=== PATIENT | male | born 1940 | race Caucasian/White ===

== ENCOUNTER → 2017-02-12 | Day surgery (SDC) | payer MEDICARE ==
[~2017-02-12] MED LIST: ASPI81TA82 PO; ATOR80TA PO; CARV12.52 PO; ISOS30TA3 PO; LOSA50TA PO; MILK500C PO; MULT-65 PO; NITR0.4S SL; PROPOFOL 500 MG/50 ML BTL IV ONE; VITATAB25 PO
--- NOTE | 2017-02-12 13:24 | GIPROC ---
[facility] [address], [address] COLONOSCOPY PROCEDURE REPORT EXAM DATE: 02/12/2017 PATIENT NAME: Isaias Pierce MR #: [id number] BIRTHDATE: 1940 ENDOSCOPIST: Kristofer Bowden MD ORDER #: [id number] SLAG EXPANDER: Charlene Mayo RN STATUS: outpatient INDICATIONS: The patient is a 76 yr old male here for a colonoscopy due to high risk patient with personal history of colonic polyps PROCEDURE PERFORMED: Colonoscopy with polypectomy MEDICATIONS: None and Per Anesthesia. PREP QUALITY: good ESTIMATED BLOOD LOSS: None CONSENT: The patient understands the risks and benefits of the procedure and understands that these risks include, but are not limited to: sedation, allergic reaction, infection, perforation and/or bleeding. Alternative means of evaluation and treatment include, among others: physical exam, x-rays, and/or surgical intervention. The patient elects to proceed with this endoscopic procedure. medical equipment was checked for proper function. Hand hygiene and appropriate measures for infection prevention was taken. After the risks, benefits and alternatives of the procedure were thoroughly explained, Informed consent was verified, confirmed and timeout was successfully executed by the treatment team. A digital exam revealed no abnormalities of the rectum The EC-[id number] ([id number]) and [id number] ([id number]) endoscope was introduced through the anus and advanced to the cecum, which was identified by both the appendix and ileocecal valve. The instrument was then slowly withdrawn as the colon was fully examined. COLON FINDINGS: A medium sized smooth sessile polyp was found in the transverse colon. A polypectomy was performed with a cold snare. The resection was complete and the polyp tissue was completely retrieved. The colon mucosa was otherwise normal. Retroflexed views revealed no abnormalities The scope was then completely withdrawn from the patient and the procedure terminated. PROCEDURE WITHDRAWAL TIME:9.5minutes ADVERSE EVENTS: There were no complications. IMPRESSIONS: 1. A medium sized sessile polyp was found in the transverse colon; polypectomy was performed with a cold snare 2. The colon mucosa was otherwise normal 3. Retroflexed views revealed no abnormalities 4. Revealed no abnormalities of the rectum RECOMMENDATIONS: 1. Await biopsy results. Biopsy results will not be ready for 7-10 days. If you don't hear from us in two weeks, call our office for results. 2. High fiber diet 3. Yearly hemoccult 4. Follow-up: GI Clinic PRN RECALL: Return 5 years Colonoscopy Kristofer Bowden MD eSigned: Kristofer Bowden MD 02/12/2017 1:24 PM cc: Ger Akins M.D and Mejia Parnell [facility]
== END | disposition home or self-care (01) ==
LOC: ESDC 11:10
PROVIDERS: ATTEND Internal Medicine Gastroenterology
DX: Z12.11 Encounter for screening for malignant neoplasm of colon (principal); Z86.010 Personal history of colon polyps; D12.3 Benign neoplasm of transverse colon
CPT/HCPCS: 88305

== ENCOUNTER 2017-05-20 18:40 | Inpatient (IN) | payer MEDICARE ==
[2017-05-20] VITALS (9 sets, daily range): BP systolic 115–134; BP diastolic 59–76; PULSE 74–85; RESP 16–20; TEMP 97.9–99.1; O2SAT 97–98
[~2017-05-20] VITALS: Ht 170.2 cm; Wt 111.1 kg
[~2017-05-20 18:40] MED LIST changes: -PROPOFOL 500 MG/50 ML BTL IV ONE
[2017-05-20] MEDS ORDERED: ISOS20TA PO (19:17)
[2017-05-20] MEDS ORDERED: LOSA100T PO (19:17)
[2017-05-20] MEDS ORDERED: ATOR80TA45 PO (19:17)
[2017-05-20] MEDS ORDERED: NITR0.4S SL (19:17)
[2017-05-20] MEDS ORDERED: CARV25TA PO (19:17)
[2017-05-20] MEDS ORDERED: VITA2000 PO (19:17)
[2017-05-20] MEDS ORDERED: FOLI400T PO (19:17)
[2017-05-20] MEDS ORDERED: ASPI-516 CHEW (19:17)
--- NOTE | 2017-05-20 19:22 | PD ---
HPI Chief Complaint: Chest Pain Time Seen by Provider: 19:03 Travel History International Travel<30 days: No Contact w/Intl Traveler<30days: No Traveled to known affect area: No History of Present Illness HPI The patient is a 76-year-old male who presents emergency department for nausea, vomiting, chest pain. The patient states his symptoms started on Friday with nausea and a dry heaves. The patient then developed some substernal chest pain that was intermittent, worse with lying supine, and he chewed it to his normal angina. The patient then developed diarrhea today, approximately 4-5 episodes which she describes as loose and watery. However, he continues have intermittent chest pain for which she takes nitroglycerin, thus relieving his pain. The patient states he had an abnormal stress test in July 2016 and underwent cardiac catheterization was told he had a blocked artery, but it was recommended that he have medical management. The patient does note a history of intermittent chest pain is substernal, worse with lying supine, that is relieved with nitroglycerin. He denies any exertional symptoms. He does complain of intermittent shortness of breath. He is asymptomatic upon arrival. The patient's cigar head piercer is Dr. Dante De Leon. Ger pain, fever, chills, or sweats. PFSH Past Medical History Cancer: Yes (RIGHT KIDNEY-REMOVED) Chest Pain: No Diabetes: No Gastrointestinal Disorders: No Glaucoma: No Hepatitis: No Hiatal Hernia: No Hypertension: Yes Integumentary: No Thyroid Disease: No ?: Not Past Surgical History Thoracic Surgery: Yes (CABG X 4) Social History Alcohol Use: Yes (WEEKLY) Tobacco Use: No Allergies-Medications (Allergen,Severity, Reaction): Coded Allergies: No Known Allergies (Verified Allergy, Severe, 05/20/17) Reported Meds & Prescriptions Reported Meds & Active Scripts Active Reported Nitrostat SL (Nitroglycerin) 0.4 Mg Subl 0.4 Mg SL DIRECTED PRN 1 tablet under the tongue as needed for chest pain. Repeat every 5 minutes for a total of 3 DOSES or call 911 if NO relief. Folic Acid 0.4 Mg Tab 400 Mcg PO DAILY Vitamin D3 (Cholecalciferol) 2,000 Unit Cap 2,000 Units PO DAILY Aspirin 81 Mg Chew 81 Mg CHEW DAILY Isosorbide Mononitrate 20 Mg Tab 30 Mg PO DAILY Take 2 doses 7 hours apart. Carvedilol 25 Mg Tab 25 Mg PO BID Losartan (Losartan Potassium) 100 Mg Tab 100 Mg PO DAILY Atorvastatin (Atorvastatin Calcium) 80 Mg Tab 80 Mg PO HS Review of Systems Except as stated in HPI: all other systems reviewed are Neg General / Constitutional: No: Fever HENT: No: Lightheadedness Cardiovascular: Positive: Chest Pain or Discomfort, No: Dyspnea on exertion Respiratory: Positive: Shortness of Breath Gastrointestinal: Positive: Nausea, Vomiting, Diarrhea, No: Abdominal Pain Musculoskeletal: No: Weakness Neurologic: No: Weakness Physical Exam Narrative GENERAL: Awake, alert, pleasant 76-year-old male who appears his stated age and is in no acute respiratory distress. SKIN: Focused skin assessment warm/dry. HEAD: Atraumatic. Normocephalic. EYES: Pupils equal and round. No scleral icterus. No injection or drainage. ENT: No nasal bleeding or discharge. Mucous membranes pink and moist. NECK: Trachea midline. No JVD. CARDIOVASCULAR: Regular rate and rhythm. No murmur appreciated. RESPIRATORY: No accessory muscle use. Clear to auscultation. Breath sounds equal bilaterally. GASTROINTESTINAL: Abdomen soft, non-tender, nondistended. Obese, well-healed scar, no rebound tenderness. No epigastric tenderness. MUSCULOSKELETAL: No obvious deformities. No clubbing. No cyanosis. No edema. NEUROLOGICAL: Awake and alert. No obvious cranial nerve deficits. Motor grossly within normal limits. Normal speech. PSYCHIATRIC: Appropriate mood and affect; insight and judgment normal. Data Data Last Documented VS Vital Signs Date Time Temp Pulse Resp B/P (MAP) Pulse Ox O2 Delivery O2 Flow Rate FiO2 05/20/17 19:38 118/72 (87) 122/68 (86) 05/20/17 19:22 97 Room Air 05/20/17 19:17 78 18 05/20/17 19:17 97.9 Orders Orders Electrocardiogram (05/20/17 19:18) Ckmb (Isoenzyme) Profile (05/20/17 19:18) Complete Blood Count With Diff (05/20/17 19:18) Comprehensive Metabolic Panel (05/20/17 19:18) Magnesium (Mg) (05/20/17 19:18) Prothrombin Time / Inr (Pt) (05/20/17 19:18) Act Partial Throm Time (Ptt) (05/20/17 19:18) Troponin I (05/20/17 19:18) Lipase (05/20/17 19:18) Chest, Single Ap (05/20/17 19:18) Ecg Monitoring (05/20/17 19:18) Bilateral Bp Monitoring (05/20/17 19:18) Iv Access Insert/Monitor (05/20/17 19:18) Oximetry (05/20/17 19:18) Oxygen Administration (05/20/17 19:18) Sodium Chloride 0.9% Flush (Ns Flush) (05/20/17 19:30) Sodium Chlorid 0.9% 500 Ml Inj (Ns 500 M (05/20/17 19:30) Labs Laboratory Tests Test 05/20/17 19:30 White Blood Count 9.1 TH/MM3 Red Blood Count 4.09 MIL/MM3 Hemoglobin 12.7 GM/DL Hematocrit 37.3 % Mean Corpuscular Volume 91.0 FL Mean Corpuscular Hemoglobin 31.0 PG Mean Corpuscular Hemoglobin Concent 34.0 % Red Cell Distribution Width 13.0 % Platelet Count 119 TH/MM3 Mean Platelet Volume 9.4 FL Neutrophils (%) (Auto) 79.3 % Lymphocytes (%) (Auto) 9.3 % Monocytes (%) (Auto) 10.7 % Eosinophils (%) (Auto) 0.4 % Basophils (%) (Auto) 0.3 % Neutrophils # (Auto) 7.3 TH/MM3 Lymphocytes # (Auto) 0.8 TH/MM3 Monocytes # (Auto) 1.0 TH/MM3 Eosinophils # (Auto) 0.0 TH/MM3 Basophils # (Auto) 0.0 TH/MM3 CBC Comment DIFF FINAL Differential Comment Prothrombin Time 11.0 SEC Prothromb Time International Ratio 1.1 RATIO Activated Partial Thromboplast Time 30.2 SEC Blood Urea Nitrogen 95 MG/DL Creatinine 13.00 MG/DL Random Glucose 98 MG/DL Total Protein 6.9 GM/DL Albumin 3.1 GM/DL Calcium Level 8.9 MG/DL Magnesium Level 2.2 MG/DL Alkaline Phosphatase 45 U/L Aspartate Amino Transf (AST/SGOT) 19 U/L Alanine Aminotransferase (ALT/SGPT) 23 U/L Total Bilirubin 0.7 MG/DL Sodium Level 133 MEQ/L Potassium Level 4.5 MEQ/L Chloride Level 99 MEQ/L Carbon Dioxide Level 17.5 MEQ/L Anion Gap 17 MEQ/L Estimat Glomerular Filtration Rate 4 ML/MIN Total Creatine Kinase 91 U/L Troponin I 0.33 NG/ML Lipase 92 U/L [facility] Medical Decision Making Medical Screen Exam Complete: Yes Emergency Medical Condition: Yes Medical Record Reviewed: Yes Interpretation(s) EKG reveals sinus rhythm with sinus arrhythmia. Q wave noted in lead 3. Last Impressions Chest X-Ray 05/20/171917 Signed Impressions: Service Date/Time: Saturday, May 20, 2017 19:37 - CONCLUSION: Cardiomegaly. Clear lungs. Stefan Davis Jr., MD Laboratory Tests Test 05/20/17 19:30 White Blood Count 9.1 TH/MM3 Red Blood Count 4.09 MIL/MM3 Hemoglobin 12.7 GM/DL Hematocrit 37.3 % Mean Corpuscular Volume 91.0 FL Mean Corpuscular Hemoglobin 31.0 PG Mean Corpuscular Hemoglobin Concent 34.0 % Red Cell Distribution Width 13.0 % Platelet Count 119 TH/MM3 Mean Platelet Volume 9.4 FL Neutrophils (%) (Auto) 79.3 % Lymphocytes (%) (Auto) 9.3 % Monocytes (%) (Auto) 10.7 % Eosinophils (%) (Auto) 0.4 % Basophils (%) (Auto) 0.3 % Neutrophils # (Auto) 7.3 TH/MM3 Lymphocytes # (Auto) 0.8 TH/MM3 Monocytes # (Auto) 1.0 TH/MM3 Eosinophils # (Auto) 0.0 TH/MM3 Basophils # (Auto) 0.0 TH/MM3 CBC Comment DIFF FINAL Differential Comment Prothrombin Time 11.0 SEC Prothromb Time International Ratio 1.1 RATIO Activated Partial Thromboplast Time 30.2 SEC Blood Urea Nitrogen 95 MG/DL Creatinine 13.00 MG/DL Random Glucose 98 MG/DL Total Protein 6.9 GM/DL Albumin 3.1 GM/DL Calcium Level 8.9 MG/DL Magnesium Level 2.2 MG/DL Alkaline Phosphatase 45 U/L Aspartate Amino Transf (AST/SGOT) 19 U/L Alanine Aminotransferase (ALT/SGPT) 23 U/L Total Bilirubin 0.7 MG/DL Sodium Level 133 MEQ/L Potassium Level 4.5 MEQ/L Chloride Level 99 MEQ/L Carbon Dioxide Level 17.5 MEQ/L Anion Gap 17 MEQ/L Estimat Glomerular Filtration Rate 4 ML/MIN Total Creatine Kinase 91 U/L Troponin I 0.33 NG/ML Lipase 92 U/L Differential Diagnosis Differential diagnosis includes GERD, esophageal spasm, gastritis, angina, ACS, pleural effusion, congestive heart failure, pancreatitis. Narrative Course IV was established, labs are drawn and sent, and the patient was placed on cardiac telemetry monitoring and continuous pulse oximetry monitoring. EKG was ordered and interpreted. The patient already took aspirin prior to arrival. The patient's chest pain-free upon arrival. Chest x-ray was obtained. I reviewed the patient's EMR he underwent cardiac catheterization by Dr. Dante De Leon on January 01, 2016. The patient was noted to have 90% stenosis of the left circumflex artery. This was attempted to be the wound but was unsuccessful. The patient's CABG vessels appeared to be patent. The patient's creatinine was 13, troponin was 0.33. The patient has had nausea with dry heaves and diarrhea, poor oral intake. BUN was 95, could be acute kidney injury from dehydration. However, patient has a remote history of kidney cancer and had the right kidney removed, only has 1 current kidney. I reviewed the EMR, his baseline kidney function is normally within normal limits. Therefore, patient will be admitted, will need IV hydration and evaluation by nephrology and an ultrasound of the kidneys. A call was placed to the on-call [facility] physician at 8:17 PM. I discussed patient with Dr. Akins who agrees with admission. Physician Communication Physician Communication A call was placed to the on-call [facility] physician at 8:17 PM for admission. I discussed the patient with Dr. Akins at 8:20 PM who agrees with admission. Diagnosis Primary Impression: Acute renal failure Qualified Codes: N17.9 - Acute kidney failure, unspecified Additional Impressions: Dehydration Elevated troponin Admitting Information Admitting Physician Requests: Admit Condition: Stable Kvng Foote MD May 20, 2017 19:22
[2017-05-20] MEDS ORDERED: SODIUM CHLORID 0.9% 500 ML INJ 500 ML IV ONE (19:30)
[2017-05-20 19:40] LABS: AUTOMATED NEUTROPHIL # 7.3 TH/MM3 (1.8-7.7); BASOPHIL % 0.3 % (0.0-2.0); EOSINOPHIL % 0.4 % (0.0-4.0); HEMATOCRIT 37.3 % (39.0-51.0); HEMOGLOBIN 12.7 GM/DL (13.0-17.0); LYMPH % 9.3 % (9.0-44.0); LYMPHOCYTE # 0.8 TH/MM3 (1.0-4.8); MEAN PLATELET VOLUME 9.4 FL (7.0-11.0); MONO % 10.7 % (0.0-8.0); NEUT % 79.3 % (16.0-70.0); PLATELET COUNT 119 TH/MM3 (150-450); RED BLOOD COUNT 4.09 MIL/MM3 (4.50-5.90); WHITE BLOOD COUNT 9.1 TH/MM3 (4.0-11.0)
[2017-05-20 19:48] LABS: CHLORIDE 99 MEQ/L (98-107); SODIUM (NA) 133 MEQ/L (136-145)
[2017-05-20 19:54] LABS: CALCIUM 8.9 MG/DL (8.5-10.1)
[2017-05-20 19:55] LABS: ALBUMIN 3.1 GM/DL (3.4-5.0); BICARBONATE 17.5 MEQ/L (21.0-32.0); BLOOD UREA NITROGEN 95 MG/DL (7-18); GLUCOSE,RANDOM 98 MG/DL (74-106); INTERNATIONAL NORMALIZED RATIO 1.1 RATIO; LIPASE 92 U/L (73-393); MAGNESIUM 2.2 MG/DL (1.5-2.5)
--- NOTE | 2017-05-20 19:56 | RADRPT ---
EXAM DATE/TIME: 05/20/2017 19:37 [facility] COMPARISON: No previous studies available for comparison. INDICATIONS : Chest pain for 3 days. MEDICAL HISTORY : Cardiovascular disease. Kidney cancer. Angina. Hypertension. SURGICAL HISTORY : CABG. Right kidney removed. Cardiac catherization. ENCOUNTER: Initial ACUITY: 3 days PAIN SCORE: 5/10 LOCATION: Bilateral chest FINDINGS: A single view of the chest demonstrates the lungs to be symmetrically aerated without evidence of mas s, infiltrate or effusion. Cardiomegaly without pulmonary vascular engorgement. Median sternotomy wir es and coronary markers. Osseous structures are intact. CONCLUSION: Cardiomegaly. Clear lungs. Stefan Davis Jr., MD on May 20, 2017 at 19:53 Board Certified Radiologist. This report was verified electronically.
[2017-05-20 19:57] LABS: ALT (GPT) 23 U/L (12-78); AST (GOT) 19 U/L (15-37); GLOMERULAR FILTRATION RATE 4 ML/MIN (>89)
[2017-05-20 19:59] LABS: TOTAL BILIRUBIN ADULT 0.7 MG/DL (0.2-1.0); TOTAL PROTEIN 6.9 GM/DL (6.4-8.2)
[2017-05-20 20:00] LABS: ALKALINE PHOSPHATASE 45 U/L (45-117)
[2017-05-20 20:03] LABS: TROPONIN I 0.33 NG/ML (0.02-0.05)
[2017-05-20] MEDS ORDERED: SODIUM CHLOR 0.9% 1000 ML INJ 1,000 ML IV ONE (20:45)
[2017-05-20] MEDS: HEPARIN SODIUM - SQ 10,000 UNITS/ML VIAL SQ SCH (20:51)
[2017-05-20] MEDS ORDERED: NITROGLYCERIN 0.4 MG SL 25 TABS/BTL SL PRN (21:15)
[2017-05-20] MEDS: SODIUM CHLOR 0.9% 1000 ML INJ 1,000 ML IV SCH (21:43)
[2017-05-20] MEDS: SODIUM CHLORIDE 0.9% FLUSH 10 ML FLUSH IVF PRN (23:44)
[2017-05-21 01:42] LABS: BICARBONATE 16.8 MEQ/L (21.0-32.0); CALCIUM 7.9 MG/DL (8.5-10.1)
[2017-05-21 01:53] LABS: TROPONIN I 0.52 NG/ML (0.02-0.05)
[2017-05-21 02:30] LABS: CALCIUM-PROTEIN CORRECTED 8.6 MG/DL (8.5-10.1); TOTAL PROTEIN 5.9 GM/DL (6.4-8.2)
[2017-05-21 04:00] VITALS: BP 124/79; PULSE 81; RESP 20; TEMP 97.9; O2SAT 97
[2017-05-21] MEDS: SODIUM CHLOR 0.9% 1000 ML INJ 1,000 ML IV SCH ×2 (06:33→17:02)
[2017-05-21] MEDS ORDERED: ISOSORBIDE MONONITRATE 30 MG TAB PO ONE (06:45)
[2017-05-21] MEDS ORDERED: ISOSORBIDE MONONITRATE 60 MG TAB PO SCH (07:00)
[2017-05-21] MEDS ORDERED: ISOSORBIDE MONONITRATE 20 MG TAB PO SCH (07:00)
--- NOTE | 2017-05-21 07:11 | MH ---
cc: SERVANDO BOOKER M.D. DATE OF ADMISSION 05/20/2017 ADMISSION DIAGNOSIS 1. Acute renal failure 2. History of stage III chronic kidney disease. 3. Vomiting and diarrhea 4. Intermittent chest pain that is typical angina that is relieved by nitro. 5. History of coronary artery disease with prior four-vessel coronary artery bypass in 2006 and last cath showed blockage that was not able to be stented in 2015. He has been on medical management for angina. 6. Hyperlipidemia 7. Cardiomyopathy with mild decrease in ejection fraction. 8. Mild aortic valve stenosis. 9. Mitral regurgitation. 10. History of diverticulosis. 11. History of renal cell carcinoma [id number] with right nephrectomy. 12. History of aortic ectasia an atherosclerosis of the aorta. 13. BPH. 14. He has no diabetes. No thyroid disease, stroke or seizures. 15. He has had measles, mumps, varicella. PAST SURGICAL HISTORY He has had an: 1. Appendectomy 2. Tonsillectomy and adenoidectomy. 3. He has had four-vessel coronary bypass in 2006. 4. Cardiac cath on 01/01/2016 that showed saphenous vein graft to the first diagonal of the LAD was widely patent. The internal mammary to the LAD was normal. His RCA was totally occluded at takeoff from the aorta. The LAD totally occluded at the takeoff of the left main and a 90% distal stenosis of the distal terminus of the left main. He had a high-grade 90% stenosis of the circumflex. The obtuse Marginal branch of the circumflex was totally occluded. Apparently there were able to successfully perform any intervention on any of the vessels that were attempted. 5. He has had history of a colonoscopies with polyps with a polyp removed on 08/31/2004. 6. He had a colonoscopy on 12/25/2010 that showed a hyperplastic polyp and diverticulosis. 7. He had a tubular adenoma noted on colonoscopy 02/12/2017. 8. He had an EGD in 2004 that showed esophagitis and gastritis. 9. He has had a right nephrectomy in 1997 for renal cell carcinoma. ALLERGIES None CURRENT MEDICATIONS He uses: 5. Nitroglycerin sublingually 0.4 mg p.r.n. 6. Carvedilol 25 mg twice a day 7. Losartan 100 mg a day 8. Atorvastatin 80 mg a day 9. Isosorbide mononitrate 30 mg a day 10. Aspirin 81 mg a day 11. Folic acid 0.4 mg a day FAMILY HISTORY His mother and father of heart disease. Father was 92, mother 75. SOCIAL HISTORY He is and lives alone. 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 He has an occasional drink of liquor, not daily. He quit smoking years ago, only smoked 1 to 1-/1/2 pack a day for 10-15 years. REVIEW OF SYSTEMS GENERAL: No sore throat or runny nose. No vision complaints. No fever or chills. CARDIOVASCULAR: He has had some intermittent angina for a long time. He states it is usually promptly relieved by nitro. In the last week, he has used nitro a few times, but it does promptly relieved any chest pain he has. He has had prolonged chest pain. No orthopnea or PND. No shortness of breath. PULMONARY: No cough, hemoptysis, or wheezing. GI: Mentions he has had some dry heaves about four days ago that resolved. He has had just a little bit of GI distress, slight cramping and bloating. He developed some diarrhea yesterday and had about three to four episodes since then. He has had no melena or rectal bleeding or hematemesis. : Without complaints. No hematuria or dysuria. EXTREMITIES: Without swelling. NEUROLOGIC: No focal signs. No confusion. EXAMINATION An obese white male in no acute stress. VITAL SIGNS: His pulses has been in the 70s and 80s, BP has been good at 117/67 to 124/79, O2 sats 97% on room air, temperature 97.9. HEENT: Pupils equal. Sclerae nonicteric. Nose negative. Mouth without inflammation lesion. NECK: Without bruit. No JVD. HEART: Regular rate and rhythm with a faint systolic murmur. LUNGS: Clear. ABDOMEN: Soft, nontender, no masses. EXTREMITIES: No edema. Pulses are palpated in the feet maybe just slightly diminished. No calf tenderness. SKIN: Negative. NEUROLOGIC: Oriented x3. Cranial nerves, motor sensory intact. LABORATORY White count 9.1, hemoglobin 12.7, platelets were a little low at 119,000. His sodium was 133, his CO2 was 17.5 last evening and 16.8 earlier this morning. His creatinine has ranged from 13-12, glucose 98 and 107, calcium was low at 7.9, protein corrected calcium was good. AST, ALT, bilirubin all normal. His troponins have been 0.33 and 0.52, but I suspect this is related to his renal failure. He has not had any prolonged chest discomfort and his lipase was 92. Is EKG showed no acute ST-T wave changes. Chest x-ray showed clear lungs, but cardiomegaly. ASSESSMENT 1. Mild thrombocytopenia 2. History of colon polyps. PLAN He has been admitted and put on some IV fluids. We have consulted Nephrology. We will have cardiology see him, but I have upped his dose of isosorbide to 60 mg a day. He is not having any prolonged chest discomfort and it is relieved by nitro. We will give him that if needed. I have held his Losartan for now, but maintain him on his Carvedilol in view of his coronary artery disease. He is on the baby aspirin a day. I put him on heparin 5000 units subcu q. 12 for DVT prophylaxis. We will put him on a renal diet. I will order an ultrasound of the abdomen as well to evaluate his kidneys. As mentioned, he only has one kidney. He has had prior right nephrectomy. MD ERIK Storey/CHLOÉ /6:35 AM /6:50 AM
--- NOTE | 2017-05-21 07:49 | PD.CONS ---
HPI Consult Requested By Primary Care Physician No Primary Care Physician History of Present Illness 76-year-old male with past medical history of CAD s/p CABG 2006, 90% left main lesion that was not amenable to PCI in 2016, cardiomyopathy, , MR, solitary kidney s/p renal CA, HTN, HLD. The patient states that since last Friday he's had "stomach flu". He had dry heaving last Friday. He started having diarrhea on Friday. He was feeling quite weak and poorly yesterday so he came to the ED where he was found to have a creatinine of 13. The patient states that since all this started on Friday he has been having some chest pain that he has been taking nitroglycerin for. He states that the pain is relieved whenever he takes the nitroglycerin. The pain has lasted up to 30 minutes before he took a nitroglycerin. He denies having any chest pain prior to Friday. He denies any shortness of breath or palpitations. Currently he is feeling much better after IV hydration and no chest pain currently. Review of Systems Negative except as stated in history of present illness Past Family Social History Allergies: Coded Allergies: No Known Allergies (Verified Allergy, Severe, 05/20/17) Past Medical History Coronary artery disease 3 myopathy Mild aortic valve stenosis next and mitral regurgitation History of renal cell carcinoma in 1997 with right nephrectomy Past Surgical History 1. Appendectomy 2. Tonsillectomy and adenoidectomy. 3. He has had four-vessel coronary bypass in 2006. 4. Cardiac cath on 01/01/2016 that showed saphenous vein graft to the first diagonal of the LAD was widely patent. The internal mammary to the LAD was normal. His RCA was totally occluded at takeoff from the aorta. The LAD totally occluded at the takeoff of the left main and a 90% distal stenosis of the distal terminus of the left main. He had a high-grade 90% stenosis of the circumflex. The obtuse Marginal branch of the circumflex was totally occluded. Apparently there were able to successfully perform any intervention on any of the vessels that were attempted. 5. He has had history of a colonoscopies with polyps with a polyp removed on 08/31/2004. 6. He had a colonoscopy on 12/25/2010 that showed a hyperplastic polyp and diverticulosis. 7. He had a tubular adenoma noted on colonoscopy 02/12/2017. 8. He had an EGD in 2004 that showed esophagitis and gastritis. 9. He has had a right nephrectomy in 1997 for renal cell carcinoma. Reported Medications Reported Meds & Active Scripts Active Reported Nitrostat SL (Nitroglycerin) 0.4 Mg Subl 0.4 Mg SL DIRECTED PRN 1 tablet under the tongue as needed for chest pain. Repeat every 5 minutes for a total of 3 DOSES or call 911 if NO relief. Folic Acid 0.4 Mg Tab 400 Mcg PO DAILY Vitamin D3 (Cholecalciferol) 2,000 Unit Cap 2,000 Units PO DAILY Aspirin 81 Mg Chew 81 Mg CHEW DAILY Isosorbide Mononitrate 20 Mg Tab 30 Mg PO DAILY Take 2 doses 7 hours apart. Carvedilol 25 Mg Tab 25 Mg PO BID Losartan (Losartan Potassium) 100 Mg Tab 100 Mg PO DAILY Atorvastatin (Atorvastatin Calcium) 80 Mg Tab 80 Mg PO HS Active Ordered Medications Current Medications Medications (Trade) Dose Ordered Sig/Rebekah Route Start Time Stop Time Status Last Admin (NS Flush) 2 ml UNSCH PRN IVF 05/20/17 19:30 05/20/17 23:44 Sodium Chloride 1,000 ml @ 100 mls/hr Q10H IV 05/20/17 20:45 05/21/17 06:33 (Heparin Inj) 5,000 units Q12HR SQ 05/20/17 21:00 05/20/17 20:51 (Aspirin Chew) 81 mg DAILY CHEW 05/21/17 09:00 (Lipitor) 80 mg HS PO 05/21/17 21:00 (Coreg) 25 mg BID PO 05/21/17 09:00 (Vitamin D3) 2,000 units DAILY PO 05/21/17 09:00 (Folate) 1 mg DAILY PO 05/21/17 09:00 (Nitrostat Sl) 0.4 mg UNSCH X1 PRN SL 05/20/17 21:15 05/21/17 21:14 (Imdur) 60 mg DAILY@07 PO 05/22/17 07:00 Family History His mother and father of heart disease. Father was 92, mother 75. Social History He is and lives alone. 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 He has an occasional drink of liquor, not daily. He quit smoking years ago, only smoked 1 to 1-/1/2 pack a day for 10-15 years. Physical Exam Vital Signs Vital Signs Date Time Temp Pulse Resp B/P (MAP) Pulse Ox O2 Delivery O2 Flow Rate FiO2 05/21/17 04:00 97.9 81 20 124/79 (94) 97 05/20/17 23:20 78 05/20/17 23:00 99.1 81 20 134/76 (95) 98 05/20/17 22:56 74 18 97 05/20/17 22:35 78 18 121/68 (85) 97 Room Air 05/20/17 21:53 74 18 117/67 (84) 97 Room Air 05/20/17 20:20 74 18 115/62 (79) 97 Room Air 05/20/17 19:38 118/72 (87) 122/68 (86) 05/20/17 19:22 97 Room Air 05/20/17 19:22 97 Room Air 05/20/17 19:17 78 18 97 Room Air 05/20/17 19:17 97.9 78 18 118/72 (87) 97 Room Air 05/20/17 18:45 98.2 85 16 124/59 (80) 97 Physical Exam GENERAL: Well-developed well-nourished. In no acute distress. NECK: No carotid bruits. No JVD. CARDIOVASCULAR: Regular rate and rhythm. No murmur appreciated. RESPIRATORY: No accessory muscle use. Clear to auscultation. Breath sounds equal bilaterally. MUSCULOSKELETAL: No clubbing or cyanosis. No edema. NEUROLOGICAL: Awake and alert. Normal speech. Laboratory Laboratory Tests Test 05/20/17 19:30 05/21/17 00:40 White Blood Count 9.1 Red Blood Count 4.09 Hemoglobin 12.7 Hematocrit 37.3 Mean Corpuscular Volume 91.0 Mean Corpuscular Hemoglobin 31.0 Mean Corpuscular Hemoglobin Concent 34.0 Red Cell Distribution Width 13.0 Platelet Count 119 Mean Platelet Volume 9.4 Neutrophils (%) (Auto) 79.3 Lymphocytes (%) (Auto) 9.3 Monocytes (%) (Auto) 10.7 Eosinophils (%) (Auto) 0.4 Basophils (%) (Auto) 0.3 Neutrophils # (Auto) 7.3 Lymphocytes # (Auto) 0.8 Monocytes # (Auto) 1.0 Eosinophils # (Auto) 0.0 Basophils # (Auto) 0.0 CBC Comment DIFF FINAL Differential Comment Prothrombin Time 11.0 Prothromb Time International Ratio 1.1 Activated Partial Thromboplast Time 30.2 Blood Urea Nitrogen 95 91 Creatinine 13.00 12.00 Random Glucose 98 107 Total Protein 6.9 5.9 Albumin 3.1 Calcium Level 8.9 7.9 Magnesium Level 2.2 Alkaline Phosphatase 45 Aspartate Amino Transf (AST/SGOT) 19 Alanine Aminotransferase (ALT/SGPT) 23 Total Bilirubin 0.7 Sodium Level 133 133 Potassium Level 4.5 4.5 Chloride Level 99 102 Carbon Dioxide Level 17.5 16.8 Anion Gap 17 14 Estimat Glomerular Filtration Rate 4 4 Total Creatine Kinase 91 Troponin I 0.33 0.52 Lipase 92 Protein Corrected Calcium 8.6 Result Diagram: 05/20/17192905/21/17 0040 Imaging Last Impressions Chest X-Ray 05/20/171917 Signed Impressions: Service Date/Time: Saturday, May 20, 2017 19:37 - CONCLUSION: Cardiomegaly. Clear lungs. Stefan Davis Jr., MD Assessment and Plan Assessment and Plan 76-year-old male with past medical history of CAD s/p CABG 2006, 90% left main lesion that was not amenable to PCI in 2016, cardiomyopathy, , MR, solitary kidney s/p renal CA, HTN, HLD. He presented with acute renal failure after several days of dry heaving and diarrhea. He's been having intermittent chest pain for the past few days as well. Elevated troponins: NSTEMI? Unclear if troponins are due to acute renal failure or ACS. Imdur was increased. CAD: Continue aspirin, beta major, statin. HILARIA: With history of single kidney. Creatinine 13. Receiving IVF. Nephrology consulted. Nagi Roy May 21, 2017 07:49
[2017-05-21 08:00] VITALS: BP 127/72; PULSE 75; RESP 18; TEMP 96.9; O2SAT 96
[2017-05-21] MEDS: FOLIC ACID 1 MG TAB PO SCH (08:35)
[2017-05-21] MEDS: CHOLECALCIFEROL (VIT D3) 1000 UNIT TAB PO SCH (08:36)
[2017-05-21] MEDS: CARVEDILOL 12.5 MG TAB PO SCH ×2 (08:36→21:45)
[2017-05-21] MEDS: ASPIRIN 81 MG CHEW TAB CHEW SCH (08:36)
[2017-05-21] MEDS: HEPARIN SODIUM - SQ 10,000 UNITS/ML VIAL SQ SCH ×2 (08:39→21:45)
--- NOTE | 2017-05-21 09:34 | EKG ---
Date Performed: 05/21/2017 Time Performed: 06:16:03 PTAGE: 76 years EKG: Sinus rhythm POSSIBLE LEFT ATRIAL ENLARGEMENT POSSIBLE ANTERIOR MYOCARDIAL INFARCTION BORDERLINE ECG PREVIOUS TRACING : 05/20/2017 18.50 DOCTOR: Gee Crawford Interpretating Date/Time 05/21/2017 09:32:57
--- NOTE | 2017-05-21 09:50 | EKG ---
Date Performed: 05/20/2017 Time Performed: 18:50:32 PTAGE: 76 years EKG: Sinus rhythm WITH SINUS ARRHYTHMIA LEFT ATRIAL ENLARGEMENT POSSIBLE LATERAL MYOCARDIAL INFARCTION INFERIOR MYOCAR DIAL INFARCTION ABNORMAL ECG PREVIOUS TRACING : 06/28/2006 03.58 DOCTOR: Gee Crawford Interpretating Date/Time 05/21/2017 09:49:00
--- NOTE | 2017-05-21 10:06 | RADRPT ---
EXAM DATE/TIME: 05/21/2017 08:09 [facility] COMPARISON: No previous studies available for comparison. INDICATIONS : Abdominal pain. Renal failure. MEDICAL HISTORY : Myocardial infarction. Renal cell carcinoma. Hypercholesterolemia. Chest pain. Irregular heartbeat. H TN. Angina. Arthritis. Renal failure. SURGICAL HISTORY : Appendectomy. Nephrectomy, right. CABG x4. Cardiac cath. ENCOUNTER: Initial ACUITY: 2 days PAIN SCORE: 4/10 LOCATION: Abdomen. MEASUREMENTS: LIVER: 17.6 cm length COMMON DUCT: 5 mm RIGHT KIDNEY: Nephrectomy LEFT KIDNEY: 15.9 x 9.2 x 9.6 cm SPLEEN: 12.6 cm length AORTA: Nonvisualized FINDINGS: LIVER: Normal echotexture without focal lesion or ductal dilatation. Main portal vein is patent with hepatop edal blood flow. COMMON DUCT: No intraluminal mass or stone visualized. GALLBLADDER: There are multiple smooth mobile stones within the gallbladder. No pericholecystic fluid or significa nt wall thickening is present. Sonographic Ng sign is negative. PANCREAS: Not adequately visualized secondary to overlying bowel gas. RIGHT KIDNEY: Surgically absent. LEFT KIDNEY: No hydronephrosis, stone or mass. Mild dilatation of the left renal pelvis. SPLEEN: No focal lesion. AORTA: Not well visualized but the visualized portions demonstrate no abnormality. IVC: Proximal aspect is not visualized. CONCLUSION: 1. There is a solitary left kidney with mild distention of the left renal collecting system without d efinite hydronephrosis. Etiology for distention is uncertain. 2. Cholelithiasis. Diaz Yadav MD on May 21, 2017 at 10:00 Board Certified Radiologist. This report was verified electronically.
--- NOTE | 2017-05-21 10:17 | PD.CONS ---
HPI Service Nephrology Consult Requested By Dr. Akins Reason for Consult Acute renal failure Primary Care Physician No Primary Care Physician History of Present Illness Patient is a 76-year-old white male with history of coronary artery disease status post CABG, he has been admitted with feeling weak tired shortness of breath he has dry heaves, nausea, vomiting and chest pain noted to have creatinine of 13 with solitary left kidney, he states the renal cell cancer, the right kidney was taken out due to renal cell cancer 1997, he was given IV hydration overnight his creatinine is still 12. Ultrasound of the kidney showed solitary left kidney and mild distention of renal pelvis without any hydronephrosis. He did have cholelithiasis. Review of Systems Constitutional: COMPLAINS OF: Fatigue Respiratory: COMPLAINS OF: Shortness of breath Cardiovascular: COMPLAINS OF: Orthopnea Gastrointestinal: COMPLAINS OF: Nausea, Anorexia Musculoskeletal: COMPLAINS OF: Joint pain Psychiatric: COMPLAINS OF: Anxiety Past Family Social History Allergies: Coded Allergies: No Known Allergies (Verified Allergy, Severe, 05/20/17) Past Medical History Coronary artery disease 3 myopathy Mild aortic valve stenosis next and mitral regurgitation History of renal cell carcinoma in 1997 with right nephrectomy Past Surgical History 1. Appendectomy 2. Tonsillectomy and adenoidectomy. 3. He has had four-vessel coronary bypass in 2006. 4. Cardiac cath on 01/01/2016 that showed saphenous vein graft to the first diagonal of the LAD was widely patent. The internal mammary to the LAD was normal. His RCA was totally occluded at takeoff from the aorta. The LAD totally occluded at the takeoff of the left main and a 90% distal stenosis of the distal terminus of the left main. He had a high-grade 90% stenosis of the circumflex. The obtuse Marginal branch of the circumflex was totally occluded. Apparently there were able to successfully perform any intervention on any of the vessels that were attempted. 5. He has had history of a colonoscopies with polyps with a polyp removed on 08/31/2004. 6. He had a colonoscopy on 12/25/2010 that showed a hyperplastic polyp and diverticulosis. 7. He had a tubular adenoma noted on colonoscopy 02/12/2017. 8. He had an EGD in 2004 that showed esophagitis and gastritis. 9. He has had a right nephrectomy in 1997 for renal cell carcinoma. Reported Medications Reported Meds & Active Scripts Active Reported Nitrostat SL (Nitroglycerin) 0.4 Mg Subl 0.4 Mg SL DIRECTED PRN 1 tablet under the tongue as needed for chest pain. Repeat every 5 minutes for a total of 3 DOSES or call 911 if NO relief. Folic Acid 0.4 Mg Tab 400 Mcg PO DAILY Vitamin D3 (Cholecalciferol) 2,000 Unit Cap 2,000 Units PO DAILY Aspirin 81 Mg Chew 81 Mg CHEW DAILY Isosorbide Mononitrate 20 Mg Tab 30 Mg PO DAILY Take 2 doses 7 hours apart. Carvedilol 25 Mg Tab 25 Mg PO BID Losartan (Losartan Potassium) 100 Mg Tab 100 Mg PO DAILY Atorvastatin (Atorvastatin Calcium) 80 Mg Tab 80 Mg PO HS Active Ordered Medications Current Medications Medications (Trade) Dose Ordered Sig/Rebekah Route Start Time Stop Time Status Last Admin (NS Flush) 2 ml UNSCH PRN IVF 05/20/17 19:30 05/20/17 23:44 Sodium Chloride 1,000 ml @ 100 mls/hr Q10H IV 05/20/17 20:45 05/21/17 06:33 (Heparin Inj) 5,000 units Q12HR SQ 05/20/17 21:00 05/21/17 08:39 (Aspirin Chew) 81 mg DAILY CHEW 05/21/17 09:00 05/21/17 08:36 (Lipitor) 80 mg HS PO 05/21/17 21:00 (Coreg) 25 mg BID PO 05/21/17 09:00 05/21/17 08:36 (Vitamin D3) 2,000 units DAILY PO 05/21/17 09:00 05/21/17 08:36 (Folate) 1 mg DAILY PO 05/21/17 09:00 05/21/17 08:35 (Nitrostat Sl) 0.4 mg UNSCH X1 PRN SL 05/20/17 21:15 05/21/17 21:14 (Imdur) 60 mg DAILY@07 PO 05/22/17 07:00 Family History Noncontributory Social History Used to smoke 40 years ago , alcohol intake regular Physical Exam Vital Signs Vital Signs Date Time Temp Pulse Resp B/P (MAP) Pulse Ox O2 Delivery O2 Flow Rate FiO2 05/21/17 08:00 96.9 75 18 127/72 (90) 96 05/21/17 04:00 97.9 81 20 124/79 (94) 97 05/20/17 23:20 78 05/20/17 23:00 99.1 81 20 134/76 (95) 98 05/20/17 22:56 74 18 97 05/20/17 22:35 78 18 121/68 (85) 97 Room Air 05/20/17 21:53 74 18 117/67 (84) 97 Room Air 05/20/17 20:20 74 18 115/62 (79) 97 Room Air 05/20/17 19:38 118/72 (87) 122/68 (86) 05/20/17 19:22 97 Room Air 05/20/17 19:22 97 Room Air 05/20/17 19:17 78 18 97 Room Air 05/20/17 19:17 97.9 78 18 118/72 (87) 97 Room Air 05/20/17 18:45 98.2 85 16 124/59 (80) 97 Physical Exam GENERAL: Well-nourished, well-developed patient. SKIN: Warm and dry. HEAD: Normocephalic. EYES: No scleral icterus. No injection or drainage. NECK: Supple, trachea midline. No JVD or lymphadenopathy. CARDIOVASCULAR: Regular rate and rhythm without murmurs, gallops, or rubs. RESPIRATORY: Breath sounds equal bilaterally. No accessory muscle use. GASTROINTESTINAL: Abdomen soft, non-tender, nondistended. EXTREMITIES: No cyanosis, or edema. NEUROLOGICAL: Awake, alert, and oriented x 3. Non-focal. Laboratory Laboratory Tests Test 05/20/17 19:30 05/21/17 00:40 White Blood Count 9.1 Red Blood Count 4.09 Hemoglobin 12.7 Hematocrit 37.3 Mean Corpuscular Volume 91.0 Mean Corpuscular Hemoglobin 31.0 Mean Corpuscular Hemoglobin Concent 34.0 Red Cell Distribution Width 13.0 Platelet Count 119 Mean Platelet Volume 9.4 Neutrophils (%) (Auto) 79.3 Lymphocytes (%) (Auto) 9.3 Monocytes (%) (Auto) 10.7 Eosinophils (%) (Auto) 0.4 Basophils (%) (Auto) 0.3 Neutrophils # (Auto) 7.3 Lymphocytes # (Auto) 0.8 Monocytes # (Auto) 1.0 Eosinophils # (Auto) 0.0 Basophils # (Auto) 0.0 CBC Comment DIFF FINAL Differential Comment Prothrombin Time 11.0 Prothromb Time International Ratio 1.1 Activated Partial Thromboplast Time 30.2 Blood Urea Nitrogen 95 91 Creatinine 13.00 12.00 Random Glucose 98 107 Total Protein 6.9 5.9 Albumin 3.1 Calcium Level 8.9 7.9 Magnesium Level 2.2 Alkaline Phosphatase 45 Aspartate Amino Transf (AST/SGOT) 19 Alanine Aminotransferase (ALT/SGPT) 23 Total Bilirubin 0.7 Sodium Level 133 133 Potassium Level 4.5 4.5 Chloride Level 99 102 Carbon Dioxide Level 17.5 16.8 Anion Gap 17 14 Estimat Glomerular Filtration Rate 4 4 Total Creatine Kinase 91 Troponin I 0.33 0.52 Lipase 92 Protein Corrected Calcium 8.6 Result Diagram: 05/20/17 1930 05/21/17 0040 Imaging Last Impressions Abdomen Ultrasound 05/21/17 0000 Signed Impressions: Service Date/Time: Sunday, May 21, 2017 08:09 - CONCLUSION: 1. There is a solitary left kidney with mild distention of the left renal collecting system without definite hydronephrosis. Etiology for distention is uncertain. 2. Cholelithiasis. Diaz Yadav MD Chest X-Ray 05/20/17 1918 Signed Impressions: Service Date/Time: Saturday, May 20, 2017 19:37 - CONCLUSION: Cardiomegaly. Clear lungs. Stefan Davis Jr., MD Assessment and Plan Problem List: (1) Acute renal failure ICD Codes: N17.9 - Acute kidney failure, unspecified Status: Acute Plan: Patient has elevation in the creatinine he has solitary kidney, ultrasound was nonrevealing. The etiology of kidney failure Could be severe dehydration, acute tubular necrosis, rule out other etiologies and myeloma I will send RAHEL, C3, C4, hepatitis profile, protein electrophoresis Continue to hydrate him Avoid nephrotoxins Monitor intake and output Check urine sodium, creatinine, osmolality, UA Follow BMP Possibility of hemodialysis was discussed continue to follow BMP there is no urgent indication we can wait till tomorrow to see if this resolves any further. (2) Coronary artery disease ICD Codes: I25.10 - Atherosclerotic heart disease of [place] coronary artery without angina pectoris Plan: As above have severe coronary artery disease (3) CKD (chronic kidney disease) stage 3, GFR 30-59 ml/min ICD Codes: N18.3 - Chronic kidney disease, stage 3 (moderate) Plan: Per records he had CK D (4) Gallstone ICD Codes: K80.20 - Calculus of gallbladder without cholecystitis without obstruction Plan: We'll continue to monitor (5) Dehydration ICD Codes: E86.0 - Dehydration Status: Acute (6) Elevated troponin ICD Codes: R74.8 - Abnormal levels of other serum enzymes Status: Acute (7) Acidosis, metabolic ICD Codes: E87.2 - Acidosis Plan: Start on sodium bicarbonate tablets, this is due to acute renal failure Problem Qualifiers (1) Acute renal failure: Qualified Codes: N17.9 - Acute kidney failure, unspecified Joseph Joy MD May 21, 2017 10:17
[2017-05-21 12:00] VITALS: BP 110/69; PULSE 75; RESP 18; TEMP 97; O2SAT 98
[2017-05-21] MEDS: SODIUM BICARBONATE 325 MG TAB PO SCH ×2 (13:31→21:53)
[2017-05-21 14:10] LABS: COMPLEMENT C3 137 MG/DL (90-180); COMPLEMENT C4 30 MG/DL (10-40)
[2017-05-21 16:00] VITALS: BP 155/86; PULSE 79; RESP 22; TEMP 96.9; O2SAT 96
[2017-05-21 20:00] VITALS: BP 118/67; PULSE 74; PULSE 77; RESP 20; TEMP 98.1; O2SAT 96
[2017-05-21] MEDS: ATORVASTATIN 40 MG TAB PO SCH (21:44)
[2017-05-22] VITALS (13 sets, daily range): BP systolic 117–170; BP diastolic 65–88; PULSE 72–94; RESP 12–36; TEMP 96–98.3; O2SAT 94–98
[2017-05-22] MEDS: SODIUM CHLOR 0.9% 1000 ML INJ 1,000 ML IV SCH ×2 (03:14→12:45)
[2017-05-22] MEDS: SODIUM BICARBONATE 325 MG TAB PO SCH ×3 (05:55→21:59)
[2017-05-22 06:24] LABS: BICARBONATE 17.3 MEQ/L (21.0-32.0); CALCIUM 7.8 MG/DL (8.5-10.1)
--- NOTE | 2017-05-22 06:59 | HHI.PR ---
Subjective Remarks He is not making any urine. No chest pain. He states he is just minimally short of breath. No vomiting (he had had some dry heaves for one day that began about 4 days prior to his admission and he developed diarrhea one day prior to admission). He had been having some brief episode of angina pain relieved by nitro SL in the week prior to admission but he has had this off and on for a while and sees cardiology. Objective Vitals Vital Signs Date Time Temp Pulse Resp B/P (MAP) Pulse Ox O2 Delivery O2 Flow Rate FiO2 05/22/17 04:00 96.0 74 20 132/77 (95) 97 05/22/17 00:00 96.0 77 20 117/65 (82) 94 05/21/17 20:00 98.1 77 20 118/67 (84) 96 05/21/17 20:00 74 05/21/17 16:00 96.9 79 22 155/86 (109) 96 05/21/17 12:00 97.0 75 18 110/69 (83) 98 05/21/17 08:00 96.9 75 18 127/72 (90) 96 Result Diagram: 05/20/17 1930 05/22/17 0523 Other Results Laboratory Tests Test 05/20/17 19:30 05/21/17 00:40 05/21/17 11:30 05/22/17 05:23 White Blood Count 9.1 TH/MM3 Red Blood Count 4.09 MIL/MM3 Hemoglobin 12.7 GM/DL Hematocrit 37.3 % Mean Corpuscular Volume 91.0 FL Mean Corpuscular Hemoglobin 31.0 PG Mean Corpuscular Hemoglobin Concent 34.0 % Red Cell Distribution Width 13.0 % Platelet Count 119 TH/MM3 Mean Platelet Volume 9.4 FL Neutrophils (%) (Auto) 79.3 % Lymphocytes (%) (Auto) 9.3 % Monocytes (%) (Auto) 10.7 % Eosinophils (%) (Auto) 0.4 % Basophils (%) (Auto) 0.3 % Neutrophils # (Auto) 7.3 TH/MM3 Lymphocytes # (Auto) 0.8 TH/MM3 Monocytes # (Auto) 1.0 TH/MM3 Eosinophils # (Auto) 0.0 TH/MM3 Basophils # (Auto) 0.0 TH/MM3 CBC Comment DIFF FINAL Differential Comment Prothrombin Time 11.0 SEC Prothromb Time International Ratio 1.1 RATIO Activated Partial Thromboplast Time 30.2 SEC Blood Urea Nitrogen 95 MG/DL 91 MG/DL 101 MG/DL Creatinine 13.00 MG/DL 12.00 MG/DL Random Glucose 98 MG/DL 107 MG/DL 104 MG/DL Total Protein 6.9 GM/DL 5.9 GM/DL 5.7 GM/DL Albumin 3.1 GM/DL Calcium Level 8.9 MG/DL 7.9 MG/DL 7.8 MG/DL Magnesium Level 2.2 MG/DL Alkaline Phosphatase 45 U/L Aspartate Amino Transf (AST/SGOT) 19 U/L Alanine Aminotransferase (ALT/SGPT) 23 U/L Total Bilirubin 0.7 MG/DL Sodium Level 133 MEQ/L 133 MEQ/L 134 MEQ/L Potassium Level 4.5 MEQ/L 4.5 MEQ/L 5.0 MEQ/L Chloride Level 99 MEQ/L 102 MEQ/L 102 MEQ/L Carbon Dioxide Level 17.5 MEQ/L 16.8 MEQ/L 17.3 MEQ/L Anion Gap 17 MEQ/L 14 MEQ/L 15 MEQ/L Estimat Glomerular Filtration Rate 4 ML/MIN 4 ML/MIN Total Creatine Kinase 91 U/L Troponin I 0.33 NG/ML 0.52 NG/ML Lipase 92 U/L Protein Corrected Calcium 8.6 MG/DL Complement C3 137 MG/DL Complement C4 30 MG/DL Imaging Last Impressions Abdomen Ultrasound 05/21/17 0000 Signed Impressions: Service Date/Time: Sunday, May 21, 2017 08:09 - CONCLUSION: 1. There is a solitary left kidney with mild distention of the left renal collecting system without definite hydronephrosis. Etiology for distention is uncertain. 2. Cholelithiasis. Diaz Yadav MD Chest X-Ray 05/20/171917 Signed Impressions: Service Date/Time: Saturday, May 20, 2017 19:37 - CONCLUSION: Cardiomegaly. Clear lungs. Stefan Davis Jr., MD Objective Remarks Exam: Pleasant male in no distress. HEENT: Pupils equal, no scleral icterus, mouth negative Neck: No JVD Heart: RRR with faint systolic murmur Lungs: Clear Abdomen: Soft, nontender Extremities: No edema Neuro: Alert, oriented A/P Assessment and Plan Assessment: --Acute renal failure with no urine output --Coronary artery disease/angina--no chest pain since Isosorbide dose increased --Recent vomiting that has resolved and diarrhea --Cardiomyopathy --Hypertension --Hx of stage 3 CKD --Hx of renal cell carcinoma with prior right nephrectomy --BPH --Cholelithiasis --Mild aortic stenosis --Hyperlipidemia Plan: Continue Heparin SQ for DVT prophylaxis Likely will need dialysis since he has no urine output. Continue Isosorbide. Continue other medications. Ger Akins MD May 22, 2017 06:59
[2017-05-22] MEDS ORDERED: ISOSORBIDE MONONITRATE 60 MG TAB PO SCH (07:00)
--- NOTE | 2017-05-22 07:41 | PD.CARD.PN ---
Subjective Subjective Remarks Patient reports that overnight he had about an hour of chest tightness and shortness of breath that resolves spontaneously. Anuric overnight with worsening creatinine. (Nagi Roy) Objective Medications Current Medications Medications (Trade) Dose Ordered Sig/Rebekah Route Start Time Stop Time Status Last Admin (NS Flush) 2 ml UNSCH PRN IVF 05/20/17 19:30 05/20/17 23:44 Sodium Chloride 1,000 ml @ 100 mls/hr Q10H IV 05/20/17 20:45 05/22/17 03:14 (Heparin Inj) 5,000 units Q12HR SQ 05/20/17 21:00 05/21/17 21:45 (Aspirin Chew) 81 mg DAILY CHEW 05/21/17 09:00 05/21/17 08:36 (Lipitor) 80 mg HS PO 05/21/17 21:00 05/21/17 21:44 (Coreg) 25 mg BID PO 05/21/17 09:00 05/21/17 21:45 (Vitamin D3) 2,000 units DAILY PO 05/21/17 09:00 05/21/17 08:36 (Folate) 1 mg DAILY PO 05/21/17 09:00 05/21/17 08:35 (Imdur) 60 mg DAILY@07 PO 05/22/17 07:00 05/22/17 05:55 (Sodium Bicarbonate) 650 mg Q8HR PO 05/21/17 14:00 05/22/17 05:55 Vital Signs / I&O Vital Signs Date Time Temp Pulse Resp B/P (MAP) Pulse Ox O2 Delivery O2 Flow Rate FiO2 05/22/17 04:00 96.0 74 20 132/77 (95) 97 05/22/17 00:00 96.0 77 20 117/65 (82) 94 05/21/17 20:00 98.1 77 20 118/67 (84) 96 05/21/17 20:00 74 05/21/17 16:00 96.9 79 22 155/86 (109) 96 05/21/17 12:00 97.0 75 18 110/69 (83) 98 05/21/17 08:00 96.9 75 18 127/72 (90) 96 I/O 05/21/17 05/21/17 05/21/17 05/22/17 05/22/17 1/18/18 07:00 15:00 23:00 07:00 15:00 23:00 Intake Total 548 ml 750 ml 1740 ml Output Total 0 ml Balance 548 ml 750 ml 1740 ml Intake Oral 750 ml 480 ml IV Total 548 ml 1260 ml Output Urine Total 0 ml # Voids 1 3 0 # Bowel Movements 1 1 3 Physical Exam GENERAL: Well-developed well-nourished. In no acute distress. NECK: No carotid bruits. No JVD. CARDIOVASCULAR: Regular rate and rhythm. No murmur appreciated. RESPIRATORY: No accessory muscle use. Clear to auscultation. Breath sounds equal bilaterally. MUSCULOSKELETAL: No clubbing or cyanosis. Trace edema. NEUROLOGICAL: Awake and alert. Normal speech. Laboratory Laboratory Tests Test 05/21/17 11:30 05/22/17 05:23 Total Protein 5.7 GM/DL Complement C3 137 MG/DL Complement C4 30 MG/DL Blood Urea Nitrogen 101 MG/DL Creatinine 15.00 MG/DL Random Glucose 104 MG/DL Calcium Level 7.8 MG/DL Sodium Level 134 MEQ/L Potassium Level 5.0 MEQ/L Chloride Level 102 MEQ/L Carbon Dioxide Level 17.3 MEQ/L Anion Gap 15 MEQ/L Estimat Glomerular Filtration Rate 3 ML/MIN Imaging Last Impressions Abdomen Ultrasound 05/21/17 0000 Signed Impressions: Service Date/Time: Sunday, May 21, 2017 08:09 - CONCLUSION: 1. There is a solitary left kidney with mild distention of the left renal collecting system without definite hydronephrosis. Etiology for distention is uncertain. 2. Cholelithiasis. Diaz Yadav MD Chest X-Ray 05/20/17 191 Signed Impressions: Service Date/Time: Saturday, May 20, 2017 19:37 - CONCLUSION: Cardiomegaly. Clear lungs. Stefan Davis Jr., MD (Nagi Roy) Assessment and Plan Assessment and Plan 76-year-old male with past medical history of CAD s/p CABG 2006, 90% left main lesion that was not amenable to PCI in 2016, cardiomyopathy, , MR, solitary kidney s/p renal CA, HTN, HLD. He presented with acute renal failure after several days of dry heaving and diarrhea. He's been having intermittent chest pain for the past few days as well. NSTEMI: Poor interventional candidate with previous lesion that was not amenable to PCI and patient now with acute renal failure. Will review previous cath films. Likely medical management, increase Imdur to 120 mg for now. CAD: Continue aspirin, beta major, statin. HILARIA: With history of single kidney. Creatinine 15. Nephrology on board. (Nagi Roy) Assessment and Plan ARF - unclear etiology. no improvement with hydration if prerenal. nephrology following. likely will need dialysis, short vs nursing home NSTEMI - suggestive CP symptoms. may be demand mediated in setting of renal failure. Personally reviewed LHC from last year. Severe distal LM/prox LCx ( codominant) with disease and unsuccessful PCI. No LHC due to Cr. No need for lexiscan. If ends up on dialysis, may consider repeat LHC. for now titrate nitrate therapy. Transfer to [facility] for probable dialysis catheter d/w dr zhao (Gee Crawford MD) Nagi Roy May 22, 2017 07:41 Gee Crawford MD May 22, 2017 09:28
[2017-05-22] MEDS ORDERED: SODIUM CHLOR 0.9% 1000 ML INJ 1,000 ML IV PRN (08:25)
[2017-05-22] MEDS ORDERED: SODIUM CHLOR 0.9% 1000 ML INJ 1,000 ML OTHER PRN ×2 (08:25)
[2017-05-22] MEDS ORDERED: diphenhydrAMINE HCL 25 MG CAP PO PRN (08:30)
[2017-05-22] MEDS ORDERED: HEPARIN SODIUM - IV 10,000 UNITS/10 ML VIAL IV FLUSH PRN (08:30)
[2017-05-22] MEDS ORDERED: MANNITOL 12.5 GM/50 ML VIAL IV PRN (08:30)
[2017-05-22] MEDS ORDERED: ONDANSETRON HCL 4 MG/2 ML VIAL IV PUSH PRN (08:30)
[2017-05-22] MEDS ORDERED: GELATIN 12 MM/7 MM FOAM TOP PRN (08:30)
[2017-05-22] MEDS ORDERED: ACETAMINOPHEN 325 MG TAB PO PRN (08:30)
[2017-05-22] MEDS ORDERED: NITROGLYCERIN 0.4 MG SL 25 TABS/BTL SL PRN (08:30)
[2017-05-22] MEDS ORDERED: SODIUM CHLORIDE 0.9% FLUSH 10 ML FLUSH IV FLUSH PRN ×2 (08:30→12:00)
[2017-05-22] MEDS ORDERED: ALBUMIN 25% INJ 100 ML IV PRN (08:30)
[2017-05-22] MEDS ORDERED: cloNIDine HCL 0.1 MG TAB PO PRN (08:30)
[2017-05-22] MEDS: CHOLECALCIFEROL (VIT D3) 1000 UNIT TAB PO SCH (09:17)
[2017-05-22] MEDS: FOLIC ACID 1 MG TAB PO SCH (09:17)
[2017-05-22] MEDS: ASPIRIN 81 MG CHEW TAB CHEW SCH (09:17)
[2017-05-22] MEDS: HEPARIN SODIUM - SQ 10,000 UNITS/ML VIAL SQ SCH ×2 (09:17→22:00)
[2017-05-22] MEDS: CARVEDILOL 12.5 MG TAB PO SCH ×2 (09:18→21:59)
[2017-05-22 10:46] LABS: HEPATITIS A AB IGM NEGATIVE (NEGATIVE); HEPATITIS B CORE AB IGM NEGATIVE (NEGATIVE); HEPATITIS B SURFACE ANTIGEN NEGATIVE (NEGATIVE); HEPATITIS C AB IgG NEGATIVE (NEGATIVE)
--- NOTE | 2017-05-22 11:50 | PD.RAD ---
Post Procedure Progress Note Pre Procedure Diagnosis: (1) Acute renal failure Post Procedure Diagnosis: (1) Acute renal failure Procedure Date: May 22, 2017 Supervising Radiologist: Delmar Su Estimated blood loss: 2cc Anesthesia: Local Plan of Activity Patient to Unit: Nursing Unit Patient Condition: Good Additional Comments: Vascath placed without difficulty catheter in good position OK for use full dictated report to follow See PACS Report for procedural detail/treatment Delmar Su MD May 22, 2017 11:50
[2017-05-22] MEDS ORDERED: HEPARIN SODIUM - IV 2,000 UNITS/2 ML VIAL IV FLUSH PRN (12:00)
--- NOTE | 2017-05-22 15:05 | HHI.NPPN ---
Subjective History of Present Illness Patient is a 76-year-old male with renal failure, having nausea and vomiting Review of Systems General Constitutional: Fatigue Objective Data Data 05/22/17 05/23/17 19:00 07:00 Intake Total 600 ml Balance 600 ml IV Total 600 ml Vital Signs Date Time Temp Pulse Resp B/P (MAP) Pulse Ox O2 Delivery O2 Flow Rate FiO2 05/22/17 14:00 73 05/22/17 12:00 97.6 74 23 138/74 (95) 98 05/22/17 08:02 94 05/22/17 08:00 96.4 77 12 138/87 (104) 96 05/22/17 04:00 96.0 74 20 132/77 (95) 97 05/22/17 00:00 96.0 77 20 117/65 (82) 94 05/21/17 20:00 98.1 77 20 118/67 (84) 96 05/21/17 20:00 74 05/21/17 16:00 96.9 79 22 155/86 (109) 96 -: 05/20/17 1930 05/22/17 0523 Physical Exam General Appearance: Well Developed, Well Nourished Neck Neck Exam: Neck Supple Pulmonary Resp Exam: Decreased Bases Cardiology CV Exam: Regular, Normal Sinus Rhythm Gastrointestinal/Abdomen GI Exam: Soft, Non-Tender, Bowel Sounds Present Extremeties Extremities Exam: No Edema Neurologic Neuro Exam: Alert Assessment/Plan Problem List: (1) Acute renal failure ICD Codes: N17.9 - Acute kidney failure, unspecified Status: Acute Plan: Patient has elevation in the creatinine he has solitary kidney, ultrasound was nonrevealing. The etiology of kidney failure Could be severe dehydration, acute tubular necrosis, rule out other etiologies and myeloma His kidney failure result remains unresolved creatinine is 15 He is feeling sick and hemodialysis was started I've seen him during dialysis 3 L of fluid have been taken off he is tolerating it well Etiology remains unclear Banerjee catheter obtaining urine for further studies Add ANCA level and GBM (2) Coronary artery disease ICD Codes: I25.10 - Atherosclerotic heart disease of [place] coronary artery without angina pectoris Plan: As above have severe coronary artery disease (3) CKD (chronic kidney disease) stage 3, GFR 30-59 ml/min ICD Codes: N18.3 - Chronic kidney disease, stage 3 (moderate) Plan: Per records he had CK D (4) Gallstone ICD Codes: K80.20 - Calculus of gallbladder without cholecystitis without obstruction Plan: We'll continue to monitor (5) Dehydration ICD Codes: E86.0 - Dehydration Status: Acute (6) Elevated troponin ICD Codes: R74.8 - Abnormal levels of other serum enzymes Status: Acute (7) Acidosis, metabolic ICD Codes: E87.2 - Acidosis Plan: Start on sodium bicarbonate tablets, this is due to acute renal failure Problem Qualifiers (1) Acute renal failure: Qualified Codes: N17.9 - Acute kidney failure, unspecified Joseph Joy MD May 22, 2017 15:05
[2017-05-22] MEDS: HEPARIN SODIUM - IV 10,000 UNITS/10 ML VIAL PRN (15:30)
[2017-05-22] MEDS: GENTAMICIN SULFATE 20 MG/2 ML VIAL OTHER PRN (15:30)
--- NOTE | 2017-05-22 15:39 | RADRPT ---
EXAM DATE/TIME: 05/22/2017 12:49 [place] COMPARISON: No previous studies available for comparison. INDICATIONS : Patient with a history of renal disease, needs dialysis. MEDICAL HISTORY : HTN Cardiac disease Renal disease SURGICAL HISTORY : CABG ENCOUNTER: Initial ACUITY: 1 day PAIN SCORE: 0/10 FLUORO TIME: 0.3 minutes IMAGE SERIES: 1 ACCESS: Right internal jugular vein DEVICE(S): 1.) 14 Yor[place] dual lumen 15 cm Schon catheter PROCEDURE : 1. Ultrasound guided venipuncture. 2. Fluoroscopic guidance. 3. Central line placement. The risks, benefits and alternatives to the procedure were explained and verbal and written consent w as obtained. The site was prepped in sterile fashion. Full sterile technique was used, including ca p, mask, sterile gloves and gown and a large sterile sheet. Hand hygiene and 2% chlorhexidine prep w as utilized per protocol for cutaneous antisepsis with appropriate dry time for site. Sterile gel an d sterile probe cover were utilized for ultrasound guidance. The skin and subcutaneous tissues were infiltrated with local anesthetic solution. A suitable site a radha the vein was selected with ultrasound and fluoroscopic guidance. A small incision was made. Th e vein was accessed under direct ultrasound visualization using the micropuncture technique. The obed ropuncture set was exchanged for a 0.035 wire. The tract was dilated. The catheter was advanced int o position under direct fluoroscopic visualization. The catheter was fixed in place with suture and a sterile dressing was applied. The patient tolerated the procedure well and there were no complications. CONCLUSION: Uncomplicated line placement as above. Delmar Su MD on May 22, 2017 at 15:37 Board Certified Radiologist. This report was verified electronically.
[2017-05-22 22:00] LABS: ALB/GLOB RATIO (SPE) 1.2 (1.39-2.23)
[2017-05-22] MEDS: ATORVASTATIN 40 MG TAB PO SCH (22:00)
[2017-05-23] VITALS (15 sets, daily range): BP systolic 115–155; BP diastolic 61–84; PULSE 71–97; RESP 20–36; TEMP 98.2–99; O2SAT 93–97
[2017-05-23] MEDS: ISOSORBIDE MONONITRATE 60 MG TAB PO SCH (06:40)
[2017-05-23] MEDS: SODIUM BICARBONATE 325 MG TAB PO SCH ×3 (06:40→21:13)
--- NOTE | 2017-05-23 07:47 | PD.CARD.PN ---
Subjective Subjective Remarks Started on dialysis yesterday. No further chest pain with increased Imdur. No shortness of breath or palpitations. (Nagi Roy) Objective Medications Current Medications Medications (Trade) Dose Ordered Sig/Rebekah Route Start Time Stop Time Status Last Admin (NS Flush) 2 ml UNSCH PRN IVF 05/20/17 19:30 05/20/17 23:44 (Heparin Inj) 5,000 units Q12HR SQ 05/20/17 21:00 05/22/17 22:00 (Aspirin Chew) 81 mg DAILY CHEW 05/21/17 09:00 05/22/17 09:17 (Lipitor) 80 mg HS PO 05/21/17 21:00 05/22/17 22:00 (Coreg) 25 mg BID PO 05/21/17 09:00 05/22/17 21:59 (Vitamin D3) 2,000 units DAILY PO 05/21/17 09:00 05/22/17 09:17 (Folate) 1 mg DAILY PO 05/21/17 09:00 05/22/17 09:17 (Sodium Bicarbonate) 650 mg Q8HR PO 05/21/17 14:00 05/23/17 06:40 (Imdur) 120 mg DAILY@07 PO 05/23/17 07:00 05/23/17 06:40 Sodium Chloride 1,000 ml @ 0 mls/hr Q0M PRN OTHER 05/22/17 08:25 (Heparin Inj) 8,000 units UNSCH PRN IV FLUSH 05/22/17 08:30 Sodium Chloride 1,000 ml @ 200 mls/hr Q5H PRN IV 05/22/17 08:25 Sodium Chloride 1,000 ml @ 0 mls/hr Q0M PRN OTHER 05/22/17 08:25 (Mannitol Inj) 12.5 gm UNSCH PRN IV 05/22/17 08:30 Albumin Human 100 ml @ 60 mls/hr UNSCH PRN IV 05/22/17 08:30 (NS Flush) 5 ml UNSCH PRN IV FLUSH 05/22/17 08:30 (Heparin Inj) UNSCH PRN .XX 05/22/17 08:30 05/22/17 15:30 (Gentamicin (Dialysis) Inj) 20 mg UNSCH PRN OTHER 05/22/17 08:30 05/22/17 15:30 (Zofran Inj) 4 mg UNSCH PRN IV PUSH 05/22/17 08:30 (Tylenol) 650 mg UNSCH PRN PO 05/22/17 08:30 (Benadryl) 25 mg UNSCH PRN PO 05/22/17 08:30 (Nitrostat Sl) 0.4 mg UNSCH PRN SL 05/22/17 08:30 (Catapres) 0.1 mg UNSCH PRN PO 05/22/17 08:30 05/22/17 18:40 (Gelfoam 12 Mm/7 Mm Top) 1 foam UNSCH PRN TOP 05/22/17 08:30 (NS Flush) UNSCH PRN IV FLUSH 05/22/17 12:00 (Heparin Inj) UNSCH PRN IV FLUSH 05/22/17 12:00 Vital Signs / I&O Vital Signs Date Time Temp Pulse Resp B/P (MAP) Pulse Ox O2 Delivery O2 Flow Rate FiO2 05/23/17 06:00 80 05/23/17 04:00 98.2 81 36 154/73 (100) 93 05/23/17 04:00 81 05/23/17 02:00 97 05/23/17 00:00 98.5 76 22 126/68 (87) 96 05/23/17 00:00 76 05/22/17 22:00 78 05/22/17 20:00 81 05/22/17 20:00 98.3 81 28 119/69 (86) 96 05/22/17 19:03 95 21 05/22/17 18:00 89 05/22/17 17:00 86 05/22/17 16:00 87 05/22/17 16:00 97.2 87 36 170/83 (112) 97 05/22/17 15:00 72 26 144/88 (106) 97 05/22/17 15:00 72 05/22/17 14:00 73 05/22/17 14:00 73 32 150/76 (100) 96 05/22/17 12:00 97.6 74 23 138/74 (95) 98 05/22/17 08:02 94 05/22/17 08:00 96.4 77 12 138/87 (104) 96 I/O 1/18/18 05/22/17 05/22/17 05/23/17 05/23/17 05/23/17 07:00 15:00 23:00 07:00 15:00 23:00 Intake Total 1740 ml 600 ml 240 ml 300 ml Output Total 0 ml 3000 ml 0 ml Balance 1740 ml -2400 ml 240 ml 300 ml Intake Oral 480 ml 240 ml 300 ml IV Total 1260 ml 600 ml Output Urine Total 0 ml 0 ml Hemodialysis 3000 ml # Voids 0 1 # Bowel Movements 3 0 1 Physical Exam GENERAL: Well-developed well-nourished. In no acute distress. NECK: No carotid bruits. No JVD. CARDIOVASCULAR: Regular rate and rhythm. No murmur appreciated. RESPIRATORY: No accessory muscle use. Clear to auscultation. Breath sounds equal bilaterally. MUSCULOSKELETAL: No clubbing or cyanosis. No edema. NEUROLOGICAL: Awake and alert. Normal speech. Laboratory Laboratory Tests Test 05/23/17 05:38 Imaging Last Impressions Catheter Placement X-Ray 05/22/17 0000 Signed Impressions: Service Date/Time: May 12:49 - CONCLUSION: Uncomplicated line placement as above. Delmar Su MD Abdomen Ultrasound 05/21/17 0000 Signed Impressions: Service Date/Time: Sunday, May 21, 2017 08:09 - CONCLUSION: 1. There is a solitary left kidney with mild distention of the left renal collecting system without definite hydronephrosis. Etiology for distention is uncertain. 2. Cholelithiasis. Diaz Yadav MD Chest X-Ray 05/20/17 191 Signed Impressions: Service Date/Time: Saturday, May 20, 2017 19:37 - CONCLUSION: Cardiomegaly. Clear lungs. Stefan Davis Jr., MD (Nagi Roy) Assessment and Plan Assessment and Plan 76-year-old male with past medical history of CAD s/p CABG 2007, 90% left main lesion that was not amenable to PCI in 2016, cardiomyopathy, , MR, solitary kidney s/p renal CA, HTN, HLD. He presented with acute renal failure after several days of dry heaving and diarrhea. He's been having intermittent chest pain for the past few days as well. NSTEMI: History of previous lesion that was not amenable to PCI and patient now with acute renal failure. Previous cath films were reviewed, severe distal LM/ prox LCx (codominant) with disease and unsuccessful PCI. Medical management for now, increased Imdur to 120 mg with good effect. If patient permanently on dialysis, may consider repeat LHC. CAD: Continue aspirin, beta major, statin. HILARIA: With history of single kidney. Creatinine 15 and became anuric, nephrology on board, hemodialysis started in 05/22. (Nagi Roy) Assessment and Plan NSTEMI - personally reviewed films. residual severe protected distal LM/ proximal LCx stenosis which is likely culprit vessel ARF - now on HD. isosorbide 120 added if permanent dialysis, then possible LHC and attempted PCI early next week if suspect only temporary dialysis, then will give med therapy and monitor (Gee Crawford MD) Nagi Roy May 23, 2017 07:47 Gee Crawford MD May 23, 2017 11:25
[2017-05-23] MEDS: HEPARIN SODIUM - IV 10,000 UNITS/10 ML VIAL PRN (09:00)
[2017-05-23] MEDS: GENTAMICIN SULFATE 20 MG/2 ML VIAL OTHER PRN (09:01)
[2017-05-23] MEDS: HEPARIN SODIUM - SQ 10,000 UNITS/ML VIAL SQ SCH ×2 (11:14→21:13)
[2017-05-23] MEDS: CHOLECALCIFEROL (VIT D3) 1000 UNIT TAB PO SCH (11:15)
[2017-05-23] MEDS: CARVEDILOL 12.5 MG TAB PO SCH ×2 (11:16→21:12)
[2017-05-23] MEDS: ASPIRIN 81 MG CHEW TAB CHEW SCH (11:16)
[2017-05-23] MEDS: FOLIC ACID 1 MG TAB PO SCH (11:16)
[2017-05-23 15:57] LABS: ANA SCREEN NEG (NEG)
--- NOTE | 2017-05-23 16:13 | HHI.NPPN ---
Subjective History of Present Illness Patient is a 76-year-old male with renal failure, having nausea and vomiting Review of Systems General Constitutional: Fatigue Objective Data Data 05/23/17 05/24/17 19:00 07:00 Output Total 2700 ml Balance -2700 ml Hemodialysis 2700 ml Vital Signs Date Time Temp Pulse Resp B/P (MAP) Pulse Ox O2 Delivery O2 Flow Rate FiO2 05/23/17 13:00 75 05/23/17 13:00 75 28 124/61 (82) 96 05/23/17 12:00 82 05/23/17 12:00 98.4 82 26 115/61 (79) 95 05/23/17 11:00 80 05/23/17 11:00 80 29 136/67 (90) 97 05/23/17 10:00 80 26 130/84 (99) 97 05/23/17 10:00 80 05/23/17 09:09 97 05/23/17 09:00 71 05/23/17 09:00 71 29 132/72 (92) 97 05/23/17 08:00 78 05/23/17 08:00 98.2 78 28 132/66 (88) 97 05/23/17 07:00 82 05/23/17 07:00 82 21 145/73 (97) 96 05/23/17 06:00 80 05/23/17 04:00 98.2 81 36 154/73 (100) 93 05/23/17 04:00 81 05/23/17 02:00 97 05/23/17 00:00 98.5 76 22 126/68 (87) 96 05/23/17 00:00 76 05/22/17 22:00 78 05/22/17 20:00 81 05/22/17 20:00 98.3 81 28 119/69 (86) 96 05/22/17 19:03 95 21 05/22/17 18:00 89 05/22/17 17:00 86 -: 05/20/17 1930 05/22/17 0523 Physical Exam General Appearance: Well Developed, Well Nourished Neck Neck Exam: Neck Supple Pulmonary Resp Exam: Decreased Bases Cardiology CV Exam: Regular, Normal Sinus Rhythm Gastrointestinal/Abdomen GI Exam: Soft, Non-Tender, Bowel Sounds Present Extremeties Extremities Exam: No Edema Neurologic Neuro Exam: Alert Assessment/Plan Problem List: (1) Acute renal failure ICD Codes: N17.9 - Acute kidney failure, unspecified Status: Acute Plan: Patient has elevation in the creatinine he has solitary kidney, ultrasound was nonrevealing. The etiology of kidney failure Could be severe dehydration, acute tubular necrosis, rule out other etiologies and myeloma dialysis earlier 2.7 L of fluid have been taken off he is tolerating it well Etiology remains unclear HD Friday (2) Coronary artery disease ICD Codes: I25.10 - Atherosclerotic heart disease of [place] coronary artery without angina pectoris Plan: As above have severe coronary artery disease (3) CKD (chronic kidney disease) stage 3, GFR 30-59 ml/min ICD Codes: N18.3 - Chronic kidney disease, stage 3 (moderate) Plan: Per records he had CK D (4) Gallstone ICD Codes: K80.20 - Calculus of gallbladder without cholecystitis without obstruction Plan: We'll continue to monitor (5) Dehydration ICD Codes: E86.0 - Dehydration Status: Acute (6) Elevated troponin ICD Codes: R74.8 - Abnormal levels of other serum enzymes Status: Acute (7) Acidosis, metabolic ICD Codes: E87.2 - Acidosis Plan: Start on sodium bicarbonate tablets, this is due to acute renal failure Problem Qualifiers (1) Acute renal failure: Qualified Codes: N17.9 - Acute kidney failure, unspecified Joseph Joy MD May 23, 2017 16:13
--- NOTE | 2017-05-23 17:06 | HHI.PR ---
Subjective Remarks No new complaints. Objective Vitals Vital Signs Date Time Temp Pulse Resp B/P (MAP) Pulse Ox O2 Delivery O2 Flow Rate FiO2 05/23/17 13:00 75 05/23/17 13:00 75 28 124/61 (82) 96 05/23/17 12:00 82 05/23/17 12:00 98.4 82 26 115/61 (79) 95 05/23/17 11:00 80 05/23/17 11:00 80 29 136/67 (90) 97 05/23/17 10:00 80 26 130/84 (99) 97 05/23/17 10:00 80 05/23/17 09:09 97 05/23/17 09:00 71 05/23/17 09:00 71 29 132/72 (92) 97 05/23/17 08:00 78 05/23/17 08:00 98.2 78 28 132/66 (88) 97 05/23/17 07:00 82 05/23/17 07:00 82 21 145/73 (97) 96 05/23/17 06:00 80 05/23/17 04:00 98.2 81 36 154/73 (100) 93 05/23/17 04:00 81 05/23/17 02:00 97 05/23/17 00:00 98.5 76 22 126/68 (87) 96 05/23/17 00:00 76 05/22/17 22:00 78 05/22/17 20:00 81 05/22/17 20:00 98.3 81 28 119/69 (86) 96 05/22/17 19:03 95 21 05/22/17 18:00 89 05/23/17 05/23/17 05/24/17 15:00 23:00 07:00 Output Total 2700 ml Balance -2700 ml Hemodialysis 2700 ml Result Diagram: 05/20/17 19305/22/17 0523 Imaging Last Impressions Abdomen Ultrasound 05/21/17 0000 Signed Impressions: Service Date/Time: Sunday, May 21, 2017 08:09 - CONCLUSION: 1. There is a solitary left kidney with mild distention of the left renal collecting system without definite hydronephrosis. Etiology for distention is uncertain. 2. Cholelithiasis. Diaz Yadav MD Chest X-Ray 05/20/171917 Signed Impressions: Service Date/Time: Saturday, May 20, 2017 19:37 - CONCLUSION: Cardiomegaly. Clear lungs. Stefan Davis Jr., MD Objective Remarks Exam: Pleasant male in no distress. HEENT: Pupils equal, no scleral icterus, mouth negative Neck: No JVD Heart: RRR with faint systolic murmur Lungs: Clear Abdomen: Soft, nontender Extremities: No edema Neuro: Alert, oriented A/P Problem List: (1) Acute renal failure ICD Codes: N17.9 - Acute kidney failure, unspecified Status: Acute Plan: - Pt started on HD per Nephrology - Repeat HD friday - follow labs - supportive care - DVT prophylaxis (2) Coronary artery disease ICD Codes: I25.10 - Atherosclerotic heart disease of [place] coronary artery without angina pectoris Status: Chronic Plan: - Comgmt with Cardiology - h/o CABG - pt chest pain free since starting imdur - ASA, coreg, lipitor - possible LHC next week depending on course of HD (3) BPH (benign prostatic hyperplasia) ICD Codes: N40.0 - Benign prostatic hyperplasia without lower urinary tract symptoms Status: Chronic Problem Qualifiers (1) Acute renal failure: Qualified Codes: N17.9 - Acute kidney failure, unspecified (2) Coronary artery disease: Qualified Codes: I25.10 - Atherosclerotic heart disease of [place] coronary artery without angina pectoris (3) BPH (benign prostatic hyperplasia): Qualified Codes: N40.0 - Benign prostatic hyperplasia without lower urinary tract symptoms Olayinka Sandoval DO May 23, 2017 17:06
[2017-05-23] MEDS: ATORVASTATIN 40 MG TAB PO SCH (21:12)
[2017-05-24] VITALS (7 sets, daily range): BP systolic 111–159; BP diastolic 56–77; PULSE 71–86; RESP 16–27; TEMP 97.9–98.6; O2SAT 91–98
[2017-05-24 06:13] LABS: AUTOMATED NEUTROPHIL # 5.9 TH/MM3 (1.8-7.7); BASOPHIL % 0.4 % (0.0-2.0); EOSINOPHIL # 0.2 TH/MM3 (0-0.4); EOSINOPHIL % 2.1 % (0.0-4.0); HEMATOCRIT 32.1 % (39.0-51.0); HEMOGLOBIN 11.1 GM/DL (13.0-17.0); LYMPH % 15.2 % (9.0-44.0); LYMPHOCYTE # 1.3 TH/MM3 (1.0-4.8); MEAN CELL VOLUME 91.2 FL (80.0-100.0); MEAN CORPUSCULAR HEMOGLOBIN 31.5 PG (27.0-34.0); MEAN CORPUSCULAR HGB CONC 34.6 % (32.0-36.0); MEAN PLATELET VOLUME 10.4 FL (7.0-11.0); MONO % 11.2 % (0.0-8.0); MONOCYTE # 0.9 TH/MM3 (0-0.9); NEUT % 71.1 % (16.0-70.0); PLATELET COUNT 167 TH/MM3 (150-450); RED BLOOD COUNT 3.51 MIL/MM3 (4.50-5.90); RED CELL DISTRIBUTION WIDTH 13.6 % (11.6-17.2); WHITE BLOOD COUNT 8.3 TH/MM3 (4.0-11.0)
[2017-05-24] MEDS: SODIUM BICARBONATE 325 MG TAB PO SCH ×3 (06:17→21:55)
[2017-05-24] MEDS: ISOSORBIDE MONONITRATE 60 MG TAB PO SCH (06:18)
[2017-05-24 06:36] LABS: BICARBONATE 24.8 MEQ/L (21.0-32.0); CALCIUM 8.5 MG/DL (8.5-10.1); PHOSPHORUS 5.8 MG/DL (2.5-4.9)
[2017-05-24 06:38] LABS: CREATININE 12.96 MG/DL (0.60-1.30)
[2017-05-24] MEDS: ASPIRIN 81 MG CHEW TAB CHEW SCH (08:19)
[2017-05-24] MEDS: CARVEDILOL 12.5 MG TAB PO SCH ×2 (08:19→21:56)
[2017-05-24] MEDS: FOLIC ACID 1 MG TAB PO SCH (08:19)
[2017-05-24] MEDS: CHOLECALCIFEROL (VIT D3) 1000 UNIT TAB PO SCH (08:19)
[2017-05-24] MEDS: HEPARIN SODIUM - SQ 10,000 UNITS/ML VIAL SQ SCH ×2 (08:20→21:54)
--- NOTE | 2017-05-24 11:21 | HHI.NPPN ---
Subjective History of Present Illness Patient is a 76-year-old male with renal failure, having nausea and vomiting Additional Remarks Patient is alert, no SOB, no abd. pain. Review of Systems General Constitutional: Fatigue Objective Data Data Vital Signs Date Time Temp Pulse Resp B/P (MAP) Pulse Ox O2 Delivery O2 Flow Rate FiO2 05/24/17 08:00 80 05/24/17 08:00 98.6 80 23 124/73 (90) 98 05/24/17 04:00 98.5 86 16 137/67 (90) 98 05/24/17 04:00 86 05/24/17 00:00 77 05/24/17 00:00 98.2 77 18 113/70 (84) 91 05/23/17 20:00 84 05/23/17 20:00 99.0 84 20 155/83 (107) 96 05/23/17 19:05 96 21 05/23/17 16:00 98.4 76 23 122/65 (84) 95 05/23/17 16:00 76 05/23/17 13:00 75 05/23/17 13:00 75 28 124/61 (82) 96 05/23/17 12:00 82 05/23/17 12:00 98.4 82 26 115/61 (79) 95 -: 05/24/17 0435 05/24/17 0435 Physical Exam General Appearance: Well Developed, Well Nourished Neck Neck Exam: Neck Supple Pulmonary Resp Exam: Decreased Bases Cardiology CV Exam: Regular, Normal Sinus Rhythm Gastrointestinal/Abdomen GI Exam: Soft, Non-Tender, Bowel Sounds Present Extremeties Extremities Exam: No Edema Neurologic Neuro Exam: Alert Assessment/Plan Problem List: (1) Acute renal failure ICD Codes: N17.9 - Acute kidney failure, unspecified Status: Acute Plan: Patient has elevation in the creatinine he has solitary kidney, ultrasound was nonrevealing. The etiology of kidney failure Could be severe dehydration, acute tubular necrosis, rule out other etiologies and myeloma His kidney failure result remains unresolved creatinine is 15 He is feeling sick and hemodialysis was started I've seen him during dialysis 3 L of fluid have been taken off he is tolerating it well Etiology remains unclear Remani anuric. ANCA negative, ANCA and GBM pending. HD done yesterday. (2) Coronary artery disease ICD Codes: I25.10 - Atherosclerotic heart disease of [place] coronary artery without angina pectoris Status: Chronic Plan: As above have severe coronary artery disease (3) CKD (chronic kidney disease) stage 3, GFR 30-59 ml/min ICD Codes: N18.3 - Chronic kidney disease, stage 3 (moderate) Plan: Per records he had CK D (4) Gallstone ICD Codes: K80.20 - Calculus of gallbladder without cholecystitis without obstruction Plan: We'll continue to monitor (5) Dehydration ICD Codes: E86.0 - Dehydration Status: Acute (6) Elevated troponin ICD Codes: R74.8 - Abnormal levels of other serum enzymes Status: Acute (7) Acidosis, metabolic ICD Codes: E87.2 - Acidosis Plan: Start on sodium bicarbonate tablets, this is due to acute renal failure Problem Qualifiers (1) Acute renal failure: Qualified Codes: N17.9 - Acute kidney failure, unspecified (2) Coronary artery disease: Qualified Codes: I25.10 - Atherosclerotic heart disease of [place] coronary artery without angina pectoris Jena Treviño MD May 24, 2017 11:21
--- NOTE | 2017-05-24 17:29 | HHI.PR ---
Subjective Remarks Patient reports hematuria. Urine is able to pass but is red in color. Patient denies pain/discomfort with urination Objective Vitals Vital Signs Date Time Temp Pulse Resp B/P (MAP) Pulse Ox O2 Delivery O2 Flow Rate FiO2 05/24/17 16:00 98.1 77 27 138/68 (91) 98 05/24/17 16:00 77 05/24/17 12:00 97.9 71 23 111/56 (74) 93 05/24/17 12:00 71 05/24/17 08:00 80 05/24/17 08:00 98.6 80 23 124/73 (90) 98 05/24/17 04:00 98.5 86 16 137/67 (90) 98 05/24/17 04:00 86 05/24/17 00:00 77 05/24/17 00:00 98.2 77 18 113/70 (84) 91 05/23/17 20:00 84 05/23/17 20:00 99.0 84 20 155/83 (107) 96 05/23/17 19:05 96 21 Result Diagram: 05/24/17 0435 05/24/17 0435 Other Results Laboratory Tests Test 05/22/17 05:23 05/23/17 05:38 05/24/17 04:35 Blood Urea Nitrogen 101 MG/DL 72 MG/DL Creatinine 15.00 MG/DL 12.96 MG/DL Random Glucose 104 MG/DL 97 MG/DL Calcium Level 7.8 MG/DL 8.5 MG/DL Sodium Level 134 MEQ/L 135 MEQ/L Potassium Level 5.0 MEQ/L 4.2 MEQ/L Chloride Level 102 MEQ/L 98 MEQ/L Carbon Dioxide Level 17.3 MEQ/L 24.8 MEQ/L Anion Gap 15 MEQ/L 12 MEQ/L Estimat Glomerular Filtration Rate 3 ML/MIN 4 ML/MIN White Blood Count 8.3 TH/MM3 Red Blood Count 3.51 MIL/MM3 Hemoglobin 11.1 GM/DL Hematocrit 32.1 % Mean Corpuscular Volume 91.2 FL Mean Corpuscular Hemoglobin 31.5 PG Mean Corpuscular Hemoglobin Concent 34.6 % Red Cell Distribution Width 13.6 % Platelet Count 167 TH/MM3 Mean Platelet Volume 10.4 FL Neutrophils (%) (Auto) 71.1 % Lymphocytes (%) (Auto) 15.2 % Monocytes (%) (Auto) 11.2 % Eosinophils (%) (Auto) 2.1 % Basophils (%) (Auto) 0.4 % Neutrophils # (Auto) 5.9 TH/MM3 Lymphocytes # (Auto) 1.3 TH/MM3 Monocytes # (Auto) 0.9 TH/MM3 Eosinophils # (Auto) 0.2 TH/MM3 Basophils # (Auto) 0.0 TH/MM3 CBC Comment DIFF FINAL Differential Comment Phosphorus Level 5.8 MG/DL Magnesium Level 2.0 MG/DL Imaging Last Impressions Abdomen Ultrasound 05/21/17 0000 Signed Impressions: Service Date/Time: Sunday, May 21, 2017 08:09 - CONCLUSION: 1. There is a solitary left kidney with mild distention of the left renal collecting system without definite hydronephrosis. Etiology for distention is uncertain. 2. Cholelithiasis. Diaz Yadav MD Chest X-Ray 05/20/17 1918 Signed Impressions: Service Date/Time: Saturday, May 20, 2017 19:37 - CONCLUSION: Cardiomegaly. Clear lungs. Stefan Davis Jr., MD Objective Remarks Pleasant male in no distress. Heart: RRR with faint systolic murmur Lungs: Clear Abdomen: Soft, nontender Extremities: No edema Neuro: Alert, oriented Procedures 05/22/17 vascath placed by IR A/P Problem List: (1) Acute renal failure ICD Codes: N17.9 - Acute kidney failure, unspecified Status: Acute Plan: - per Nephrology: - Patient has elevation in the creatinine he has solitary kidney, ultrasound was nonrevealing. The etiology of kidney failure Could be severe dehydration, acute tubular necrosis, rule out other etiologies and myeloma dialysis (05/23) 2.7 L of fluid have been taken off he is tolerating it well Etiology remains unclear - Pt started on HD per Nephrology (05/23) - Repeat HD Friday - follow labs - supportive care - DVT prophylaxis (2) Coronary artery disease ICD Codes: I25.10 - Atherosclerotic heart disease of [place] coronary artery without angina pectoris Status: Chronic Plan: - Comgmt with Cardiology - h/o CABG - pt chest pain free since starting imdur - ASA, coreg, lipitor - possible LHC next week depending on course of HD (3) BPH (benign prostatic hyperplasia) ICD Codes: N40.0 - Benign prostatic hyperplasia without lower urinary tract symptoms Status: Chronic (4) Hematuria ICD Codes: R31.9 - Hematuria, unspecified Plan: possible related to traumatic lopes continue to monitor check CBC in AM Assessment and Plan Patient examined. Assessment and plan formulated with Teetee Walker PA-C. I agree with the above. - hematuria today, repeat CBC in AM - next HD 05/26 - Cardiology following, possible [facility] Problem Qualifiers (1) Acute renal failure: Qualified Codes: N17.9 - Acute kidney failure, unspecified (2) Coronary artery disease: Qualified Codes: I25.10 - Atherosclerotic heart disease of [place] coronary artery without angina pectoris (3) BPH (benign prostatic hyperplasia): Qualified Codes: N40.0 - Benign prostatic hyperplasia without lower urinary tract symptoms Teetee Walker May 24, 2017 17:29 Olayinka Sandoval DO May 25, 2017 11:38
--- NOTE | 2017-05-24 17:37 | PD.CARD.PN ---
Subjective Subjective Remarks Had HD yesterday NO chest pain, Got out of bed today. Objective Medications Current Medications Medications (Trade) Dose Ordered Sig/Rebekah Route Start Time Stop Time Status Last Admin (NS Flush) 2 ml UNSCH PRN IVF 05/20/17 19:30 05/20/17 23:44 (Heparin Inj) 5,000 units Q12HR SQ 05/20/17 21:00 05/24/17 08:20 (Aspirin Chew) 81 mg DAILY CHEW 05/21/17 09:00 05/24/17 08:19 (Lipitor) 80 mg HS PO 05/21/17 21:00 05/23/17 21:12 (Coreg) 25 mg BID PO 05/21/17 09:00 05/24/17 08:19 (Vitamin D3) 2,000 units DAILY PO 05/21/17 09:00 05/24/17 08:19 (Folate) 1 mg DAILY PO 05/21/17 09:00 05/24/17 08:19 (Sodium Bicarbonate) 650 mg Q8HR PO 05/21/17 14:00 05/24/17 13:49 (Imdur) 120 mg DAILY@07 PO 05/23/17 07:00 05/24/17 06:18 Sodium Chloride 1,000 ml @ 0 mls/hr Q0M PRN OTHER 05/22/17 08:25 (Heparin Inj) 8,000 units UNSCH PRN IV FLUSH 05/22/17 08:30 Sodium Chloride 1,000 ml @ 200 mls/hr Q5H PRN IV 05/22/17 08:25 Sodium Chloride 1,000 ml @ 0 mls/hr Q0M PRN OTHER 05/22/17 08:25 (Mannitol Inj) 12.5 gm UNSCH PRN IV 05/22/17 08:30 Albumin Human 100 ml @ 60 mls/hr UNSCH PRN IV 05/22/17 08:30 (NS Flush) 5 ml UNSCH PRN IV FLUSH 05/22/17 08:30 (Heparin Inj) UNSCH PRN .XX 05/22/17 08:30 05/23/17 09:00 (Gentamicin (Dialysis) Inj) 20 mg UNSCH PRN OTHER 05/22/17 08:30 05/23/17 09:01 (Zofran Inj) 4 mg UNSCH PRN IV PUSH 05/22/17 08:30 (Tylenol) 650 mg UNSCH PRN PO 05/22/17 08:30 (Benadryl) 25 mg UNSCH PRN PO 05/22/17 08:30 (Nitrostat Sl) 0.4 mg UNSCH PRN SL 05/22/17 08:30 (Catapres) 0.1 mg UNSCH PRN PO 05/22/17 08:30 05/22/17 18:40 (Gelfoam 12 Mm/7 Mm Top) 1 foam UNSCH PRN TOP 05/22/17 08:30 (NS Flush) UNSCH PRN IV FLUSH 05/22/17 12:00 (Heparin Inj) UNSCH PRN IV FLUSH 05/22/17 12:00 Vital Signs / I&O Vital Signs Date Time Temp Pulse Resp B/P (MAP) Pulse Ox O2 Delivery O2 Flow Rate FiO2 05/24/17 16:00 98.1 77 27 138/68 (91) 98 05/24/17 16:00 77 05/24/17 12:00 97.9 71 23 111/56 (74) 93 05/24/17 12:00 71 05/24/17 08:00 80 05/24/17 08:00 98.6 80 23 124/73 (90) 98 05/24/17 04:00 98.5 86 16 137/67 (90) 98 05/24/17 04:00 86 05/24/17 00:00 77 05/24/17 00:00 98.2 77 18 113/70 (84) 91 05/23/17 20:00 84 05/23/17 20:00 99.0 84 20 155/83 (107) 96 05/23/17 19:05 96 21 I/O 05/23/17 05/23/17 05/23/17 05/24/17 05/24/17 05/24/17 06:59 14:59 22:59 06:59 14:59 22:59 Intake Total 300 ml 240 ml Output Total 2700 ml Balance 300 ml -2700 ml 240 ml Intake Oral 300 ml 240 ml Hemodialysis 2700 ml # Voids 1 1 1 # Bowel Movements 1 1 1 Physical Exam GENERAL: Awake, alert, pleasant 76-year-old male who appears his stated age and is in no acute respiratory distress. HEAD: Atraumatic. Normocephalic. EYES: Pupils equal and round. No scleral icterus. No injection or drainage. NECK: Trachea midline. No JVD. CARDIOVASCULAR: Regular rate and rhythm. No murmur appreciated. RESPIRATORY: No accessory muscle use. Clear to auscultation. Breath sounds equal bilaterally. GASTROINTESTINAL: Abdomen soft, non-tender, nondistended. Obese, well-healed scar, no rebound tenderness. No epigastric tenderness. MUSCULOSKELETAL: No obvious deformities. No clubbing. No cyanosis. No edema. NEUROLOGICAL: Awake and alert. No obvious cranial nerve deficits. Motor grossly within normal limits. Normal speech. PSYCHIATRIC: Appropriate mood and affect; insight and judgment normal. Laboratory Laboratory Tests Test 05/24/17 04:35 White Blood Count 8.3 TH/MM3 Red Blood Count 3.51 MIL/MM3 Hemoglobin 11.1 GM/DL Hematocrit 32.1 % Mean Corpuscular Volume 91.2 FL Mean Corpuscular Hemoglobin 31.5 PG Mean Corpuscular Hemoglobin Concent 34.6 % Red Cell Distribution Width 13.6 % Platelet Count 167 TH/MM3 Mean Platelet Volume 10.4 FL Neutrophils (%) (Auto) 71.1 % Lymphocytes (%) (Auto) 15.2 % Monocytes (%) (Auto) 11.2 % Eosinophils (%) (Auto) 2.1 % Basophils (%) (Auto) 0.4 % Neutrophils # (Auto) 5.9 TH/MM3 Lymphocytes # (Auto) 1.3 TH/MM3 Monocytes # (Auto) 0.9 TH/MM3 Eosinophils # (Auto) 0.2 TH/MM3 Basophils # (Auto) 0.0 TH/MM3 CBC Comment DIFF FINAL Differential Comment Blood Urea Nitrogen 72 MG/DL Creatinine 12.96 MG/DL Random Glucose 97 MG/DL Calcium Level 8.5 MG/DL Phosphorus Level 5.8 MG/DL Magnesium Level 2.0 MG/DL Sodium Level 135 MEQ/L Potassium Level 4.2 MEQ/L Chloride Level 98 MEQ/L Carbon Dioxide Level 24.8 MEQ/L Anion Gap 12 MEQ/L Estimat Glomerular Filtration Rate 4 ML/MIN Assessment and Plan Problem List: (1) Cardiomyopathy ICD Codes: I42.9 - Cardiomyopathy, unspecified (2) Coronary artery disease ICD Codes: I25.10 - Atherosclerotic heart disease of [place] coronary artery without angina pectoris Status: Chronic (3) CKD (chronic kidney disease) stage 3, GFR 30-59 ml/min ICD Codes: N18.3 - Chronic kidney disease, stage 3 (moderate) (4) Acute renal failure ICD Codes: N17.9 - Acute kidney failure, unspecified Status: Acute (5) Elevated troponin ICD Codes: R74.8 - Abnormal levels of other serum enzymes Status: Acute Assessment and Plan 76-year-old male with past medical history of CAD s/p CABG 2006, 90% left main lesion that was not amenable to PCI in 2016, cardiomyopathy, , MR, solitary kidney s/p renal CA, HTN, HLD. He presented with acute renal failure after several days of dry heaving and diarrhea. He's been having intermittent chest pain for the past few days as well. NSTEMI: History of previous lesion that was not amenable to PCI and patient now with acute renal failure. Previous cath films were reviewed, severe distal LM/ prox LCx (codominant) with disease and unsuccessful PCI. Per Dr. Gee Crawford, " residual severe protected distal LM/proximal LCx stenosis which is likely culprit vessel" ARF - now on HD. isosorbide 120 added if permanent dialysis, then possible LHC and attempted PCI early next week if suspect only temporary dialysis, then will give med therapy and monitor CAD: Continue aspirin, beta major, statin. HILARIA: With history of single kidney. hx of renal cancer. Creatinine 15 and became anuric, nephrology on board, hemodialysis started in 05/22. I am seeing patient this weekend requested by dr. Gee Crawford. Problem Qualifiers (1) Coronary artery disease: Qualified Codes: I25.10 - Atherosclerotic heart disease of [place] coronary artery without angina pectoris (2) Acute renal failure: Qualified Codes: N17.9 - Acute kidney failure, unspecified Wing Jagruti Cormier MD May 24, 2017 17:37
[2017-05-24] MEDS: ATORVASTATIN 40 MG TAB PO SCH (21:54)
[2017-05-25] VITALS (16 sets, daily range): BP systolic 106–152; BP diastolic 62–78; PULSE 71–91; RESP 16–37; TEMP 97.6–98.8; O2SAT 90–98
[2017-05-25 06:23] LABS: AUTOMATED NEUTROPHIL # 6.2 TH/MM3 (1.8-7.7); BASOPHIL % 0.4 % (0.0-2.0); EOSINOPHIL # 0.2 TH/MM3 (0-0.4); HEMATOCRIT 30.9 % (39.0-51.0); HEMOGLOBIN 10.5 GM/DL (13.0-17.0); LYMPH % 16.5 % (9.0-44.0); LYMPHOCYTE # 1.4 TH/MM3 (1.0-4.8); MEAN CELL VOLUME 91.2 FL (80.0-100.0); MEAN CORPUSCULAR HEMOGLOBIN 30.9 PG (27.0-34.0); MEAN CORPUSCULAR HGB CONC 33.9 % (32.0-36.0); MEAN PLATELET VOLUME 9.6 FL (7.0-11.0); MONO % 10.8 % (0.0-8.0); MONOCYTE # 0.9 TH/MM3 (0-0.9); NEUT % 70.3 % (16.0-70.0); PLATELET COUNT 161 TH/MM3 (150-450); RED BLOOD COUNT 3.39 MIL/MM3 (4.50-5.90); RED CELL DISTRIBUTION WIDTH 13.5 % (11.6-17.2); WHITE BLOOD COUNT 8.8 TH/MM3 (4.0-11.0)
[2017-05-25] MEDS: SODIUM BICARBONATE 325 MG TAB PO SCH ×3 (06:35→21:17)
[2017-05-25] MEDS: ISOSORBIDE MONONITRATE 60 MG TAB PO SCH (06:35)
[2017-05-25] MEDS: FOLIC ACID 1 MG TAB PO SCH (07:53)
[2017-05-25] MEDS: CARVEDILOL 12.5 MG TAB PO SCH ×2 (07:53→21:17)
[2017-05-25] MEDS: CHOLECALCIFEROL (VIT D3) 1000 UNIT TAB PO SCH (07:53)
[2017-05-25] MEDS: HEPARIN SODIUM - SQ 10,000 UNITS/ML VIAL SQ SCH ×2 (07:53→21:16)
[2017-05-25] MEDS: ASPIRIN 81 MG CHEW TAB CHEW SCH (07:54)
--- NOTE | 2017-05-25 10:23 | RADRPT ---
EXAM DATE/TIME: 05/25/2017 09:57 [place] COMPARISON: No previous studies available for comparison. INDICATIONS : Hematuria. ORAL CONTRAST: No oral contrast ingested. RADIATION DOSE: 9.97 CTDIvol (mGy) ; Patient body habitus MEDICAL HISTORY : Hypertension. Renal cell carcinoma. SURGICAL HISTORY : Nephrectomy, right. ENCOUNTER: Initial ACUITY: 1 day PAIN SCALE: 0/10 LOCATION: Bilateral abdomen TECHNIQUE: Volumetric scanning of the abdomen and pelvis was performed. Using automated exposure control and ad justment of the mA and/or kV according to patient size, radiation dose was kept as low as reasonably achievable to obtain optimal diagnostic quality images. DICOM format image data is available electro nically for review and comparison. FINDINGS: CT Abdomen: The liver, spleen, pancreas, adrenals are unremarkable. The right kidney is absent surgic ally. There is significant hydronephrosis and the left kidney due to an approximate 4 mm distal urete ral stone with a separate approximate 4-5 mm stone in left lower pole kidney. There is no evidence fo r any appreciable pathological adenopathy, free fluid, or bowel obstruction. The gallbladder demonst rates multiple stones without gallbladder wall thickening, or pericholecystic fluid. There are calcif ications in the region of the [place] of the hemidiaphragm on the right side chronic in nature. Tiny cesar ateral pleural effusions are seen. Chronic vascular calcifications are present involving the aorta, i liac arteries without any significant stenosis or aneurysmal dilatations for technique. CT pelvis: There is an approximate 2.3 cm spontaneously dense mass in the region of the bladder with a tiny gas bubble inside the bladder. The etiology for this mass is not certain. There is no evidence for abscess formation, or any significant adenopathy within the pelvis. The prostate gland is inhomo geneous and measures 3.7 x 5.6 cm in AP and transverse diameters and nonspecific. There is a tiny [place] in the right proximal femur. There are degenerative changes and possible bulging discs in th e lower lumbosacral spine not adequately characterized. There is moderate amount of stool throughout the colon. CONCLUSION: 1. Moderate to severe hydronephrosis left kidney due to an approximate 4-5 mm distal ureteral stone. 2. Cholelithiasis. 3. Spontaneously dense mass in the bladder of uncertain etiology and cystoscopy is suggested to [facility] nelida Hernández MD on May 25, 2017 at 10:14 Board Certified Radiologist. This report was verified electronically.
--- NOTE | 2017-05-25 11:30 | HHI.PR ---
Subjective Remarks Patient offers no new complaints CT abd/pelvic reveals hydronephrosis with ureteral stone Urology consulted and plans to take patient to the OR tomorrow Objective Vitals Vital Signs Date Time Temp Pulse Resp B/P (MAP) Pulse Ox O2 Delivery O2 Flow Rate FiO2 05/25/17 08:00 98.0 91 37 106/75 (85) 97 05/25/17 08:00 91 05/25/17 04:00 83 05/25/17 04:00 97.6 83 21 126/68 (87) 90 05/25/17 00:00 97.8 82 25 126/67 (86) 95 05/25/17 00:00 82 05/24/17 20:50 97 21 05/24/17 20:00 85 05/24/17 20:00 85 27 159/77 (104) 95 05/24/17 16:00 98.1 77 27 138/68 (91) 98 05/24/17 16:00 77 05/24/17 12:00 97.9 71 23 111/56 (74) 93 05/24/17 12:00 71 Result Diagram: 05/25/17 0515 05/24/17 0435 Other Results Laboratory Tests Test 05/23/17 05:38 05/24/17 04:35 05/25/17 05:15 White Blood Count 8.3 TH/MM3 8.8 TH/MM3 Red Blood Count 3.51 MIL/MM3 3.39 MIL/MM3 Hemoglobin 11.1 GM/DL 10.5 GM/DL Hematocrit 32.1 % 30.9 % Mean Corpuscular Volume 91.2 FL 91.2 FL Mean Corpuscular Hemoglobin 31.5 PG 30.9 PG Mean Corpuscular Hemoglobin Concent 34.6 % 33.9 % Red Cell Distribution Width 13.6 % 13.5 % Platelet Count 167 TH/MM3 161 TH/MM3 Mean Platelet Volume 10.4 FL 9.6 FL Neutrophils (%) (Auto) 71.1 % 70.3 % Lymphocytes (%) (Auto) 15.2 % 16.5 % Monocytes (%) (Auto) 11.2 % 10.8 % Eosinophils (%) (Auto) 2.1 % 2.0 % Basophils (%) (Auto) 0.4 % 0.4 % Neutrophils # (Auto) 5.9 TH/MM3 6.2 TH/MM3 Lymphocytes # (Auto) 1.3 TH/MM3 1.4 TH/MM3 Monocytes # (Auto) 0.9 TH/MM3 0.9 TH/MM3 Eosinophils # (Auto) 0.2 TH/MM3 0.2 TH/MM3 Basophils # (Auto) 0.0 TH/MM3 0.0 TH/MM3 CBC Comment DIFF FINAL DIFF FINAL Differential Comment Blood Urea Nitrogen 72 MG/DL Creatinine 12.96 MG/DL Random Glucose 97 MG/DL Calcium Level 8.5 MG/DL Phosphorus Level 5.8 MG/DL Magnesium Level 2.0 MG/DL Sodium Level 135 MEQ/L Potassium Level 4.2 MEQ/L Chloride Level 98 MEQ/L Carbon Dioxide Level 24.8 MEQ/L Anion Gap 12 MEQ/L Estimat Glomerular Filtration Rate 4 ML/MIN Imaging Last Impressions Abdomen Ultrasound 05/21/17 0000 Signed Impressions: Service Date/Time: Sunday, May 21, 2017 08:09 - CONCLUSION: 1. There is a solitary left kidney with mild distention of the left renal collecting system without definite hydronephrosis. Etiology for distention is uncertain. 2. Cholelithiasis. Diaz Yadav MD Chest X-Ray 05/20/17 191 Signed Impressions: Service Date/Time: Saturday, May 20, 2017 19:37 - CONCLUSION: Cardiomegaly. Clear lungs. Stefan Davis Jr., MD Objective Remarks Pleasant male in no distress. Heart: RRR with faint systolic murmur Lungs: Clear Abdomen: Soft, nontender Extremities: No edema Neuro: Alert, oriented Procedures 05/22/17 vascath placed by IR A/P Problem List: (1) Acute renal failure ICD Codes: N17.9 - Acute kidney failure, unspecified Status: Acute Plan: - per Nephrology: - Patient has elevation in the creatinine he has solitary kidney, ultrasound was nonrevealing. The etiology of kidney failure Could be severe dehydration, acute tubular necrosis, rule out other etiologies and myeloma dialysis (05/23) 2.7 L of fluid have been taken off he is tolerating it well Etiology remains unclear - Pt started on HD per Nephrology (05/23) - Repeat HD Friday - 05/25 I&O reports only 40 ml of urine out in the past 24 hours - repeat CBC, BMP, mag and phosphorus in AM - supportive care - DVT prophylaxis Patient offers no new complaints CT abd/pelvic reveals moderate to severe hydronephrosis left kidney due to an approximate 4-5 mm distal ureteral stone. Cholelithiasis. Spontaneously dense mass in the bladder Rocephin IV started Urology consulted and plans to take patient to the OR tomorrow (2) Coronary artery disease ICD Codes: I25.10 - Atherosclerotic heart disease of [place] coronary artery without angina pectoris Status: Acute Plan: - Comgmt with Cardiology - h/o CABG - pt chest pain free since starting imdur - ASA, coreg, lipitor - per cardiology if permanent dialysis, then possible LHC and attempted PCI early next week or if suspect only temporary dialysis, then will give med therapy and monitor (3) BPH (benign prostatic hyperplasia) ICD Codes: N40.0 - Benign prostatic hyperplasia without lower urinary tract symptoms Status: Chronic (4) Hematuria ICD Codes: R31.9 - Hematuria, unspecified Status: Acute Plan: - possible related to traumatic lopes - hgb 12.7 (05/20) -> 11.1 (05/24) -> 10.5 (05/25) - check CBC in AM - Patient has a history of renal cell carcinoma with a right nephrectomy - CT abd/pelvic without contrast reveals: Moderate to severe hydronephrosis left kidney due to an approximate 405 mm distal ureteral stone. Cholelithiasis. Spontaneously dense mass in the bladder of uncertain etiology and cystoscopy is suggested to further evaluate - consult placed to urology, Dr. Sandoval discussed the case with Dr. Harry - plan for cystoscopy tomorrow if anesthesiology agrees, if patient unable to have anesthesia will place percutaneous nephrostomy tube - Rocephin IV started Assessment and Plan Patient examined. Assessment and plan formulated with Teetee Walker PA-C. I agree with the above. Problem Qualifiers (1) Acute renal failure: Qualified Codes: N17.9 - Acute kidney failure, unspecified (2) Coronary artery disease: Qualified Codes: I25.10 - Atherosclerotic heart disease of [place] coronary artery without angina pectoris (3) BPH (benign prostatic hyperplasia): Qualified Codes: N40.0 - Benign prostatic hyperplasia without lower urinary tract symptoms Teetee Walker May 25, 2017 11:30 Olayinka Sandoval DO May 28, 2017 22:32
--- NOTE | 2017-05-25 12:27 | HHI.NPPN ---
Subjective History of Present Illness Patient is a 76-year-old male with renal failure, having nausea and vomiting Additional Remarks Patient is alert, no SOB, no flank pain, no edema. Minimal urine output. CT scan with noted moderate to severe hydronephrosis (Mary Cordova) Review of Systems General Constitutional: Fatigue (Mary Cordova) Objective Data Data Vital Signs Date Time Temp Pulse Resp B/P (MAP) Pulse Ox O2 Delivery O2 Flow Rate FiO2 05/25/17 08:00 98.0 91 37 106/75 (85) 97 05/25/17 08:00 91 05/25/17 04:00 83 05/25/17 04:00 97.6 83 21 126/68 (87) 90 05/25/17 00:00 97.8 82 25 126/67 (86) 95 05/25/17 00:00 82 05/24/17 20:50 97 21 05/24/17 20:00 85 05/24/17 20:00 85 27 159/77 (104) 95 05/24/17 16:00 98.1 77 27 138/68 (91) 98 05/24/17 16:00 77 (Mary Cordova) -: 05/25/17 0515 05/24/17 0435 Physical Exam General Appearance: Well Developed, Well Nourished (Mary Cordova) Neck Neck Exam: Neck Supple (Mary Cordova) Pulmonary Resp Exam: Decreased Bases (Mary Cordova) Cardiology CV Exam: Regular, Normal Sinus Rhythm (Mary Cordova) Gastrointestinal/Abdomen GI Exam: Soft, Non-Tender, Bowel Sounds Present (Mary Cordova) Extremeties Extremities Exam: No Edema (Mary Cordova) Neurologic Neuro Exam: Alert (Mary Cordova) Assessment/Plan Problem List: (1) Acute renal failure ICD Codes: N17.9 - Acute kidney failure, unspecified Status: Acute Plan: Patient has elevation in the creatinine he has solitary kidney, ultrasound was nonrevealing. The etiology of kidney failure Could be severe dehydration, acute tubular necrosis, rule out other etiologies and myeloma His kidney failure result remains unresolved creatinine is 15 ANCA negative, ANCA and GBM pending. Minimal UOP overnight. CT revealed . Moderate to severe hydronephrosis left kidney due to an approximate 4-5 mm distal ureteral stone, Cholelithiasis, Spontaneously dense mass in the bladder of uncertain etiology and cystoscopy is suggested to further evaluate. Banerjee catheter ordered. Urology consulted. Dialysis scheduled for tomorrow Labs are pending today (2) Coronary artery disease ICD Codes: I25.10 - Atherosclerotic heart disease of [place] coronary artery without angina pectoris Status: Chronic Plan: As above have severe coronary artery disease (3) CKD (chronic kidney disease) stage 3, GFR 30-59 ml/min ICD Codes: N18.3 - Chronic kidney disease, stage 3 (moderate) Plan: Per records he had CK D (4) Gallstone ICD Codes: K80.20 - Calculus of gallbladder without cholecystitis without obstruction Plan: We'll continue to monitor (5) Dehydration ICD Codes: E86.0 - Dehydration Status: Acute (6) Elevated troponin ICD Codes: R74.8 - Abnormal levels of other serum enzymes Status: Acute (7) Acidosis, metabolic ICD Codes: E87.2 - Acidosis Plan: Start on sodium bicarbonate tablets, this is due to acute renal failure (8) Hydronephrosis ICD Codes: N13.30 - Unspecified hydronephrosis Plan: Moderate to severe hydronephrosis left kidney due to an approximate 4-5 mm distal ureteral stone Minimal UOP overnight. Banerjee catheter ordered Spontaneously dense mass in the bladder of uncertain etiology and cystoscopy is suggested to further evaluate. Urology consulted NPO after MN (Mary Cordova) Problem List: (1) Acute renal failure ICD Codes: N17.9 - Acute kidney failure, unspecified Status: Acute Plan: Patient has elevation in the creatinine he has solitary kidney, ultrasound was nonrevealing. The etiology of kidney failure Could be severe dehydration, acute tubular necrosis, rule out other etiologies and myeloma His kidney failure result remains unresolved creatinine is 15 ANCA negative, ANCA and GBM pending. Minimal UOP overnight. CT revealed . Moderate to severe hydronephrosis left kidney due to an approximate 4-5 mm distal ureteral stone, Cholelithiasis, Spontaneously dense mass in the bladder of uncertain etiology and cystoscopy is suggested to further evaluate. Banerjee catheter ordered. Urology consulted. Dialysis scheduled for tomorrow For HD tomorrow and the Cystoscopy. Dr. Joy will follow from tomorrow. (2) Coronary artery disease ICD Codes: I25.10 - Atherosclerotic heart disease of [place] coronary artery without angina pectoris Status: Chronic Plan: As above have severe coronary artery disease (3) CKD (chronic kidney disease) stage 3, GFR 30-59 ml/min ICD Codes: N18.3 - Chronic kidney disease, stage 3 (moderate) Plan: Per records he had CK D (4) Gallstone ICD Codes: K80.20 - Calculus of gallbladder without cholecystitis without obstruction Plan: We'll continue to monitor (5) Dehydration ICD Codes: E86.0 - Dehydration Status: Acute (6) Elevated troponin ICD Codes: R74.8 - Abnormal levels of other serum enzymes Status: Acute (7) Acidosis, metabolic ICD Codes: E87.2 - Acidosis Plan: Start on sodium bicarbonate tablets, this is due to acute renal failure (8) Hydronephrosis ICD Codes: N13.30 - Unspecified hydronephrosis Plan: Moderate to severe hydronephrosis left kidney due to an approximate 4-5 mm distal ureteral stone Minimal UOP overnight. Banerjee catheter ordered Spontaneously dense mass in the bladder of uncertain etiology and cystoscopy is suggested to further evaluate. Urology consulted NPO after MN (Jena Treviño MD) Problem Qualifiers (1) Acute renal failure: Qualified Codes: N17.9 - Acute kidney failure, unspecified (2) Coronary artery disease: Qualified Codes: I25.10 - Atherosclerotic heart disease of [place] coronary artery without angina pectoris Mary Cordova May 25, 2017 12:27 Jena Treviño MD May 25, 2017 18:45
[2017-05-25 12:55] LABS: ALBUMIN 2.4 GM/DL (3.4-5.0); ALKALINE PHOSPHATASE 50 U/L (45-117); ALT (GPT) 39 U/L (12-78); AST (GOT) 33 U/L (15-37); BICARBONATE 22.8 MEQ/L (21.0-32.0); BLOOD UREA NITROGEN 84 MG/DL (7-18); CALCIUM 8.6 MG/DL (8.5-10.1); CHLORIDE 96 MEQ/L (98-107); GLOMERULAR FILTRATION RATE 3 ML/MIN (>89); GLUCOSE,RANDOM 125 MG/DL (74-106); MAGNESIUM 2.1 MG/DL (1.5-2.5); SODIUM (NA) 131 MEQ/L (136-145); TOTAL BILIRUBIN ADULT 0.3 MG/DL (0.2-1.0); TOTAL PROTEIN 5.9 GM/DL (6.4-8.2)
[2017-05-25 12:58] LABS: CREATININE 15.06 MG/DL (0.60-1.30)
[2017-05-25] MEDS: cefTRIAXone INJ 1,000 MG in SODIUM CHLORIDE 0.9% INJ 100 ML IV SCH (14:04)
--- NOTE | 2017-05-25 16:28 | PD.CONS ---
HPI Service Urology Consult Requested By Reason for Consult Renal Failure, Nephrolithiasis Primary Care Physician No Primary Care Physician Diagnosis: (1) Acute renal failure ICD Code: N17.9 - Acute kidney failure, unspecified (2) Coronary artery disease ICD Code: I25.10 - Atherosclerotic heart disease of [place] coronary artery without angina pectoris (3) BPH (benign prostatic hyperplasia) ICD Code: N40.0 - Benign prostatic hyperplasia without lower urinary tract symptoms (4) Hematuria ICD Code: R31.9 - Hematuria, unspecified History of Present Illness 76yo male with significant cardiac history and solitary left kidney and renal failure with obstructing stone seen in consultation for such. Patient was initially admitted in acute renal failure with creatinine over 12. Renal ultrasound identified no evidence of hydronephrosis or other abnormalities. He has since been on dialysis. Recent CT scan again identified mild to moderate left-sided hydronephrosis however a distal 4-5 mm obstructing ureteral stone. There is also note of some abnormality within the bladder concerning for possible bladder mass. Patient currently denies any abdominal or flank pain. Patient had a right nephrectomy in the past due to renal cancer. Denies any hematuria. Patient reports prior to all this episode he was making good urine. Denies any fevers chills nausea vomiting. Review of Systems ROS Limitations: Clinical Condition Constitutional: DENIES: Fever Endocrine: DENIES: Heat/cold intolerance Eyes: DENIES: Blurred vision Ears, nose, mouth, throat: DENIES: Hearing loss Respiratory: DENIES: Cough Cardiovascular: DENIES: Chest pain Gastrointestinal: DENIES: Abdominal pain Genitourinary: DENIES: Hematuria, Dysuria Musculoskeletal: DENIES: Back pain Neurologic: DENIES: Headache Psychiatric: DENIES: Anxiety Except as stated in HPI: all other systems reviewed are Neg Past Family Social History Past Medical History Coronary artery disease Mild aortic valve stenosis next and mitral regurgitation History of renal cell carcinoma in 1997 with right nephrectomy Past Surgical History Appendectomy Tonsillectomy and adenoidectomy. CABGx4 2006. Cardiac cath Right nephrectomy in 1997 for renal cell carcinoma. Reported Medications Reported Meds & Active Scripts Active Reported Nitrostat SL (Nitroglycerin) 0.4 Mg Subl 0.4 Mg SL DIRECTED PRN 1 tablet under the tongue as needed for chest pain. Repeat every 5 minutes for a total of 3 DOSES or call 911 if NO relief. Folic Acid 0.4 Mg Tab 400 Mcg PO DAILY Vitamin D3 (Cholecalciferol) 2,000 Unit Cap 2,000 Units PO DAILY Aspirin 81 Mg Chew 81 Mg CHEW DAILY Isosorbide Mononitrate 20 Mg Tab 30 Mg PO DAILY Take 2 doses 7 hours apart. Carvedilol 25 Mg Tab 25 Mg PO BID Losartan (Losartan Potassium) 100 Mg Tab 100 Mg PO DAILY Atorvastatin (Atorvastatin Calcium) 80 Mg Tab 80 Mg PO HS Allergies: Coded Allergies: No Known Allergies (Verified Allergy, Severe, 05/20/17) Active Ordered Medications Current Medications Medications (Trade) Dose Ordered Sig/Rebekah Route Start Time Stop Time Status Last Admin (NS Flush) 2 ml UNSCH PRN IVF 05/20/17 19:30 05/20/17 23:44 (Heparin Inj) 5,000 units Q12HR SQ 05/20/17 21:00 05/25/17 07:53 (Aspirin Chew) 81 mg DAILY CHEW 05/21/17 09:00 05/25/17 07:54 (Lipitor) 80 mg HS PO 05/21/17 21:00 05/24/17 21:54 (Coreg) 25 mg BID PO 05/21/17 09:00 05/25/17 07:53 (Vitamin D3) 2,000 units DAILY PO 05/21/17 09:00 05/25/17 07:53 (Folate) 1 mg DAILY PO 05/21/17 09:00 05/25/17 07:53 (Sodium Bicarbonate) 650 mg Q8HR PO 05/21/17 14:00 05/25/17 14:04 (Imdur) 120 mg DAILY@07 PO 05/23/17 07:00 05/25/17 06:35 Sodium Chloride 1,000 ml @ 0 mls/hr Q0M PRN OTHER 05/22/17 08:25 (Heparin Inj) 8,000 units UNSCH PRN IV FLUSH 05/22/17 08:30 Sodium Chloride 1,000 ml @ 200 mls/hr Q5H PRN IV 05/22/17 08:25 Sodium Chloride 1,000 ml @ 0 mls/hr Q0M PRN OTHER 05/22/17 08:25 (Mannitol Inj) 12.5 gm UNSCH PRN IV 05/22/17 08:30 Albumin Human 100 ml @ 60 mls/hr UNSCH PRN IV 05/22/17 08:30 (NS Flush) 5 ml UNSCH PRN IV FLUSH 05/22/17 08:30 (Heparin Inj) UNSCH PRN .XX 05/22/17 08:30 05/23/17 09:00 (Gentamicin (Dialysis) Inj) 20 mg UNSCH PRN OTHER 05/22/17 08:30 05/23/17 09:01 (Zofran Inj) 4 mg UNSCH PRN IV PUSH 05/22/17 08:30 (Tylenol) 650 mg UNSCH PRN PO 05/22/17 08:30 (Benadryl) 25 mg UNSCH PRN PO 05/22/17 08:30 (Nitrostat Sl) 0.4 mg UNSCH PRN SL 05/22/17 08:30 (Catapres) 0.1 mg UNSCH PRN PO 05/22/17 08:30 05/22/17 18:40 (Gelfoam 12 Mm/7 Mm Top) 1 foam UNSCH PRN TOP 05/22/17 08:30 (NS Flush) UNSCH PRN IV FLUSH 05/22/17 12:00 (Heparin Inj) UNSCH PRN IV FLUSH 05/22/17 12:00 Ceftriaxone Sodium 1000 mg/ Sodium Chloride 100 ml @ 200 mls/hr Q24H IV 05/25/17 12:00 05/25/17 14:04 Family History His mother and father of heart disease. Father was 92, mother 75. Social History He is and lives alone. 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 He has an occasional drink of liquor, not daily. He quit smoking years ago, only smoked 1 to 1-/1/2 pack a day for 10-15 years. Physical Exam Vital Signs Date Time Temp Pulse Resp B/P (MAP) Pulse Ox O2 Delivery O2 Flow Rate FiO2 05/25/17 16:00 85 05/25/17 15:55 98.2 85 16 152/78 (102) 98 05/25/17 15:00 78 05/25/17 08:00 98.0 91 37 106/75 (85) 97 05/25/17 08:00 91 05/25/17 04:00 83 05/25/17 04:00 97.6 83 21 126/68 (87) 90 05/25/17 00:00 97.8 82 25 126/67 (86) 95 05/25/17 00:00 82 05/24/17 20:50 97 21 05/24/17 20:00 85 05/24/17 20:00 85 27 159/77 (104) 95 Physical Exam GENERAL: This is a well-nourished, well-developed patient, in no apparent distress. SKIN: No rashes, ecchymoses or lesions. Cool and dry. HEAD: Atraumatic. Normocephalic. EYES: . Extraocular motions intact. No scleral icterus. No injection or drainage. ENT: Nose without bleeding, purulent drainage Airway patent. NECK: Trachea midline. No JVD or lymphadenopathy. CARDIOVASCULAR: Normal pulse RESPIRATORY: nonlabored GASTROINTESTINAL: Abdomen soft, non-tender, nondistended. MUSCULOSKELETAL: Extremities without clubbing, cyanosis, or edema. NEUROLOGICAL: Awake and alert. Motor and sensory grossly within normal limits. . Normal speech. Lab results reviewed: Yes Laboratory Tests Test 05/25/17 05:15 05/25/17 11:47 White Blood Count 8.8 Red Blood Count 3.39 Hemoglobin 10.5 Hematocrit 30.9 Mean Corpuscular Volume 91.2 Mean Corpuscular Hemoglobin 30.9 Mean Corpuscular Hemoglobin Concent 33.9 Red Cell Distribution Width 13.5 Platelet Count 161 Mean Platelet Volume 9.6 Neutrophils (%) (Auto) 70.3 Lymphocytes (%) (Auto) 16.5 Monocytes (%) (Auto) 10.8 Eosinophils (%) (Auto) 2.0 Basophils (%) (Auto) 0.4 Neutrophils # (Auto) 6.2 Lymphocytes # (Auto) 1.4 Monocytes # (Auto) 0.9 Eosinophils # (Auto) 0.2 Basophils # (Auto) 0.0 CBC Comment DIFF FINAL Differential Comment Blood Urea Nitrogen 84 Creatinine 15.06 Random Glucose 125 Total Protein 5.9 Albumin 2.4 Calcium Level 8.6 Magnesium Level 2.1 Alkaline Phosphatase 50 Aspartate Amino Transf (AST/SGOT) 33 Alanine Aminotransferase (ALT/SGPT) 39 Total Bilirubin 0.3 Sodium Level 131 Potassium Level 3.9 Chloride Level 96 Carbon Dioxide Level 22.8 Anion Gap 12 Estimat Glomerular Filtration Rate 3 Result Diagram: 05/25/17 0515 05/25/17 1147 Personally reviewed images: Yes Imaging Last Impressions Abdomen/Pelvis CT 05/25/17 0000 Signed Impressions: Service Date/Time: Thursday, May 25, 2017 09:57 - CONCLUSION: 1. Moderate to severe hydronephrosis left kidney due to an approximate 4-5 mm distal ureteral stone. 2. Cholelithiasis. 3. Spontaneously dense mass in the bladder of uncertain etiology and cystoscopy is suggested to further evaluate. Alejandra Hernández MD Catheter Placement X-Ray 05/22/17 0000 Signed Impressions: Service Date/Time: May 12:49 - CONCLUSION: Uncomplicated line placement as above. Delmar Su MD Abdomen Ultrasound 05/21/17 0000 Signed Impressions: Service Date/Time: Sunday, May 21, 2017 08:09 - CONCLUSION: 1. There is a solitary left kidney with mild distention of the left renal collecting system without definite hydronephrosis. Etiology for distention is uncertain. 2. Cholelithiasis. Diaz Yadav MD Chest X-Ray 05/20/171917 Signed Impressions: Service Date/Time: Saturday, May 20, 2017 19:37 - CONCLUSION: Cardiomegaly. Clear lungs. Stefan Davis Jr., MD Assessment and Plan Problem List: (1) Acute renal failure ICD Code: N17.9 - Acute kidney failure, unspecified Status: Acute (2) Nephrolithiasis ICD Code: N20.0 - Calculus of kidney Assessment and Plan Personally reviewed CT scan images. Obstructing left distal ureteral stone noted with mild to moderate left-sided hydronephrosis. There is an area of the bladder that appears to be consistent with a possible mass however poorly characterized on this CT scan. Findings were discussed with the patient in detail. At this time given his renal failure and solitary kidney with evidence of obstructing stone will plan for cystoscopy and left ureteral stent placement. Patient is scheduled to undergo dialysis tomorrow morning therefore we will plan to have the procedure done following his dialysis. Risks and benefits of the procedure were discussed in detail the patient understands and agrees the above plan. NPO midnight Problem Qualifiers (1) Acute renal failure: Qualified Codes: N17.9 - Acute kidney failure, unspecified (2) Coronary artery disease: Qualified Codes: I25.10 - Atherosclerotic heart disease of [place] coronary artery without angina pectoris (3) BPH (benign prostatic hyperplasia): Qualified Codes: N40.0 - Benign prostatic hyperplasia without lower urinary tract symptoms Mehdi Harry MD May 25, 2017 16:28
--- NOTE | 2017-05-25 20:01 | PD.CARD.PN ---
Subjective Subjective Remarks NO chest pain, No arrhythmia. Pending urethral stenting tomorrow. Objective Medications Current Medications Medications (Trade) Dose Ordered Sig/Rebekah Route Start Time Stop Time Status Last Admin (NS Flush) 2 ml UNSCH PRN IVF 05/20/17 19:30 05/20/17 23:44 (Heparin Inj) 5,000 units Q12HR SQ 05/20/17 21:00 05/25/17 07:53 (Aspirin Chew) 81 mg DAILY CHEW 05/21/17 09:00 05/25/17 07:54 (Lipitor) 80 mg HS PO 05/21/17 21:00 05/24/17 21:54 (Coreg) 25 mg BID PO 05/21/17 09:00 05/25/17 07:53 (Vitamin D3) 2,000 units DAILY PO 05/21/17 09:00 05/25/17 07:53 (Folate) 1 mg DAILY PO 05/21/17 09:00 05/25/17 07:53 (Sodium Bicarbonate) 650 mg Q8HR PO 05/21/17 14:00 05/25/17 14:04 (Imdur) 120 mg DAILY@07 PO 05/23/17 07:00 05/25/17 06:35 Sodium Chloride 1,000 ml @ 0 mls/hr Q0M PRN OTHER 05/22/17 08:25 (Heparin Inj) 8,000 units UNSCH PRN IV FLUSH 05/22/17 08:30 Sodium Chloride 1,000 ml @ 200 mls/hr Q5H PRN IV 05/22/17 08:25 Sodium Chloride 1,000 ml @ 0 mls/hr Q0M PRN OTHER 05/22/17 08:25 (Mannitol Inj) 12.5 gm UNSCH PRN IV 05/22/17 08:30 Albumin Human 100 ml @ 60 mls/hr UNSCH PRN IV 05/22/17 08:30 (NS Flush) 5 ml UNSCH PRN IV FLUSH 05/22/17 08:30 (Heparin Inj) UNSCH PRN .XX 05/22/17 08:30 05/23/17 09:00 (Gentamicin (Dialysis) Inj) 20 mg UNSCH PRN OTHER 05/22/17 08:30 05/23/17 09:01 (Zofran Inj) 4 mg UNSCH PRN IV PUSH 05/22/17 08:30 (Tylenol) 650 mg UNSCH PRN PO 05/22/17 08:30 (Benadryl) 25 mg UNSCH PRN PO 05/22/17 08:30 (Nitrostat Sl) 0.4 mg UNSCH PRN SL 05/22/17 08:30 (Catapres) 0.1 mg UNSCH PRN PO 05/22/17 08:30 05/22/17 18:40 (Gelfoam 12 Mm/7 Mm Top) 1 foam UNSCH PRN TOP 05/22/17 08:30 (NS Flush) UNSCH PRN IV FLUSH 05/22/17 12:00 (Heparin Inj) UNSCH PRN IV FLUSH 05/22/17 12:00 Ceftriaxone Sodium 1000 mg/ Sodium Chloride 100 ml @ 200 mls/hr Q24H IV 05/25/17 12:00 05/25/17 14:04 Vital Signs / I&O Vital Signs Date Time Temp Pulse Resp B/P (MAP) Pulse Ox O2 Delivery O2 Flow Rate FiO2 05/25/17 19:47 98.8 71 18 127/62 (83) 95 05/25/17 18:00 81 05/25/17 17:00 83 05/25/17 16:00 85 05/25/17 15:55 98.2 85 16 152/78 (102) 98 05/25/17 15:00 78 05/25/17 08:00 98.0 91 37 106/75 (85) 97 05/25/17 08:00 91 05/25/17 04:00 83 05/25/17 04:00 97.6 83 21 126/68 (87) 90 05/25/17 00:00 97.8 82 25 126/67 (86) 95 05/25/17 00:00 82 05/24/17 20:50 97 21 I/O 05/24/17 05/24/17 05/24/17 05/25/17 05/25/17 05/25/17 07:00 15:00 23:00 07:00 15:00 23:00 Intake Total 240 ml 750 ml 250 ml 920 ml Output Total 40 ml 75 ml Balance 240 ml 750 ml 210 ml 845 ml Intake Oral 240 ml 750 ml 250 ml 920 ml Output Urine Total 40 ml 75 ml Stool Total 0 ml # Voids 1 1 1 # Bowel Movements 1 1 0 Physical Exam GENERAL: Awake, alert, pleasant 76-year-old male who appears his stated age and is in no acute respiratory distress. HEAD: Atraumatic. Normocephalic. EYES: Pupils equal and round. No scleral icterus. No injection or drainage. NECK: Trachea midline. No JVD. CARDIOVASCULAR: Regular rate and rhythm. No murmur appreciated. RESPIRATORY: No accessory muscle use. Clear to auscultation. Breath sounds equal bilaterally. GASTROINTESTINAL: Abdomen soft, non-tender, nondistended. Obese, well-healed scar, no rebound tenderness. No epigastric tenderness. MUSCULOSKELETAL: No obvious deformities. No clubbing. No cyanosis. No edema. NEUROLOGICAL: Awake and alert. No obvious cranial nerve deficits. Motor grossly within normal limits. Normal speech. PSYCHIATRIC: Appropriate mood and affect; insight and judgment normal. Laboratory Laboratory Tests Test 05/25/17 05:15 05/25/17 11:47 White Blood Count 8.8 TH/MM3 Red Blood Count 3.39 MIL/MM3 Hemoglobin 10.5 GM/DL Hematocrit 30.9 % Mean Corpuscular Volume 91.2 FL Mean Corpuscular Hemoglobin 30.9 PG Mean Corpuscular Hemoglobin Concent 33.9 % Red Cell Distribution Width 13.5 % Platelet Count 161 TH/MM3 Mean Platelet Volume 9.6 FL Neutrophils (%) (Auto) 70.3 % Lymphocytes (%) (Auto) 16.5 % Monocytes (%) (Auto) 10.8 % Eosinophils (%) (Auto) 2.0 % Basophils (%) (Auto) 0.4 % Neutrophils # (Auto) 6.2 TH/MM3 Lymphocytes # (Auto) 1.4 TH/MM3 Monocytes # (Auto) 0.9 TH/MM3 Eosinophils # (Auto) 0.2 TH/MM3 Basophils # (Auto) 0.0 TH/MM3 CBC Comment DIFF FINAL Differential Comment Blood Urea Nitrogen 84 MG/DL Creatinine 15.06 MG/DL Random Glucose 125 MG/DL Total Protein 5.9 GM/DL Albumin 2.4 GM/DL Calcium Level 8.6 MG/DL Magnesium Level 2.1 MG/DL Alkaline Phosphatase 50 U/L Aspartate Amino Transf (AST/SGOT) 33 U/L Alanine Aminotransferase (ALT/SGPT) 39 U/L Total Bilirubin 0.3 MG/DL Sodium Level 131 MEQ/L Potassium Level 3.9 MEQ/L Chloride Level 96 MEQ/L Carbon Dioxide Level 22.8 MEQ/L Anion Gap 12 MEQ/L Estimat Glomerular Filtration Rate 3 ML/MIN Imaging Last 24 hours Impressions Abdomen/Pelvis CT 05/25/17 0000 Signed Impressions: Service Date/Time: Thursday, May 25, 2017 09:57 - CONCLUSION: 1. Moderate to severe hydronephrosis left kidney due to an approximate 4-5 mm distal ureteral stone. 2. Cholelithiasis. 3. Spontaneously dense mass in the bladder of uncertain etiology and cystoscopy is suggested to further evaluate. Alejandra Hernández MD Assessment and Plan Problem List: (1) Cardiomyopathy ICD Codes: I42.9 - Cardiomyopathy, unspecified (2) Coronary artery disease ICD Codes: I25.10 - Atherosclerotic heart disease of [place] coronary artery without angina pectoris Status: Chronic (3) CKD (chronic kidney disease) stage 3, GFR 30-59 ml/min ICD Codes: N18.3 - Chronic kidney disease, stage 3 (moderate) (4) Acute renal failure ICD Codes: N17.9 - Acute kidney failure, unspecified Status: Acute (5) Elevated troponin ICD Codes: R74.8 - Abnormal levels of other serum enzymes Status: Acute Assessment and Plan 76-year-old male with past medical history of CAD s/p CABG 2006, 90% left main lesion that was not amenable to PCI in 2016, cardiomyopathy, , MR, solitary kidney s/p renal CA, HTN, HLD. He presented with acute renal failure after several days of dry heaving and diarrhea. He's been having intermittent chest pain for the past few days as well prior to admission. NSTEMI: History of previous lesion that was not amenable to PCI and patient now with acute renal failure. Previous cath films were reviewed, severe distal LM/ prox LCx (codominant) with disease and unsuccessful PCI. Per Dr. Gee Crawford, " residual severe protected distal LM/proximal LCx stenosis which is likely culprit vessel" ARF - now on HD. Pending urethral stenting, which may improve renal function. isosorbide 120 added if permanent dialysis, then possible LHC and attempted PCI early next week if suspect only temporary dialysis, then will give med therapy and monitor CAD: Continue aspirin, beta major, statin. HILARIA: With history of single kidney. hx of renal cancer. Creatinine 15 and became anuric, nephrology on board, hemodialysis started in 05/22. I am seeing patient this weekend requested by dr. Gee Crawford. Problem Qualifiers (1) Coronary artery disease: Qualified Codes: I25.10 - Atherosclerotic heart disease of [place] coronary artery without angina pectoris (2) Acute renal failure: Qualified Codes: N17.9 - Acute kidney failure, unspecified Wing Jagruti Cormier MD May 25, 2017 20:01
[2017-05-25] MEDS: ATORVASTATIN 40 MG TAB PO SCH (21:17)
[2017-05-26] VITALS (19 sets, daily range): BP systolic 127–164; BP diastolic 65–80; PULSE 71–96; RESP 17–19; TEMP 98.2–98.7; O2SAT 96–98
[2017-05-26 05:07] LABS: BASOPHIL % 0.4 % (0.0-2.0); EOSINOPHIL # 0.2 TH/MM3 (0-0.4); EOSINOPHIL % 2.1 % (0.0-4.0); HEMATOCRIT 27.9 % (39.0-51.0); HEMOGLOBIN 9.9 GM/DL (13.0-17.0); LYMPH % 14.7 % (9.0-44.0); LYMPHOCYTE # 1.2 TH/MM3 (1.0-4.8); MEAN CELL VOLUME 89.6 FL (80.0-100.0); MEAN CORPUSCULAR HEMOGLOBIN 31.8 PG (27.0-34.0); MEAN CORPUSCULAR HGB CONC 35.5 % (32.0-36.0); MEAN PLATELET VOLUME 9.5 FL (7.0-11.0); MONO % 11.2 % (0.0-8.0); MONOCYTE # 0.9 TH/MM3 (0-0.9); NEUT % 71.6 % (16.0-70.0); PLATELET COUNT 171 TH/MM3 (150-450); RED BLOOD COUNT 3.11 MIL/MM3 (4.50-5.90); RED CELL DISTRIBUTION WIDTH 13.3 % (11.6-17.2); WHITE BLOOD COUNT 8.3 TH/MM3 (4.0-11.0)
[2017-05-26] MEDS ORDERED: CHLORHEXIDINE GLUCONATE 2 % 1 PACK (2 CLOTHS) TOPICAL PRN (05:15)
[2017-05-26] MEDS ORDERED: POVIDONE IODINE 5% (ANTISEPSIS KIT) 4 APPLICATIONS EACH NARE PRN (05:15)
[2017-05-26] MEDS ORDERED: SODIUM CHLORID 0.9% 500 ML IV PRN (05:15)
[2017-05-26] MEDS ORDERED: LACTATED RINGER'S 1000 ML IV PRN (05:15)
[2017-05-26 05:34] LABS: CALCIUM 8.2 MG/DL (8.5-10.1)
[2017-05-26 05:36] LABS: CREATININE 16.59 MG/DL (0.60-1.30)
[2017-05-26] MEDS: SODIUM BICARBONATE 325 MG TAB PO SCH ×3 (06:00→20:20)
[2017-05-26] MEDS: ISOSORBIDE MONONITRATE 60 MG TAB PO SCH (07:00)
--- NOTE | 2017-05-26 07:48 | PD.CARD.PN ---
Subjective Subjective Remarks Found to have urinary obstruction and hydronephrosis of the weekend, going for cystoscopy today. No chest pain since Imdur was increased. Denies any shortness of breath or palpitations. Objective Medications Current Medications Medications (Trade) Dose Ordered Sig/Rebekah Route Start Time Stop Time Status Last Admin (NS Flush) 2 ml UNSCH PRN IVF 05/20/17 19:30 05/20/17 23:44 (Heparin Inj) 5,000 units Q12HR SQ 05/20/17 21:00 05/25/17 21:16 (Aspirin Chew) 81 mg DAILY CHEW 05/21/17 09:00 05/25/17 07:54 (Lipitor) 80 mg HS PO 05/21/17 21:00 05/25/17 21:17 (Coreg) 25 mg BID PO 05/21/17 09:00 05/25/17 21:17 (Vitamin D3) 2,000 units DAILY PO 05/21/17 09:00 05/25/17 07:53 (Folate) 1 mg DAILY PO 05/21/17 09:00 05/25/17 07:53 (Sodium Bicarbonate) 650 mg Q8HR PO 05/21/17 14:00 05/25/17 21:17 (Imdur) 120 mg DAILY@07 PO 05/23/17 07:00 05/25/17 06:35 Sodium Chloride 1,000 ml @ 0 mls/hr Q0M PRN OTHER 05/22/17 08:25 (Heparin Inj) 8,000 units UNSCH PRN IV FLUSH 05/22/17 08:30 Sodium Chloride 1,000 ml @ 200 mls/hr Q5H PRN IV 05/22/17 08:25 Sodium Chloride 1,000 ml @ 0 mls/hr Q0M PRN OTHER 05/22/17 08:25 (Mannitol Inj) 12.5 gm UNSCH PRN IV 05/22/17 08:30 Albumin Human 100 ml @ 60 mls/hr UNSCH PRN IV 05/22/17 08:30 (NS Flush) 5 ml UNSCH PRN IV FLUSH 05/22/17 08:30 (Heparin Inj) UNSCH PRN .XX 05/22/17 08:30 05/23/17 09:00 (Gentamicin (Dialysis) Inj) 20 mg UNSCH PRN OTHER 05/22/17 08:30 05/23/17 09:01 (Zofran Inj) 4 mg UNSCH PRN IV PUSH 05/22/17 08:30 (Tylenol) 650 mg UNSCH PRN PO 05/22/17 08:30 (Benadryl) 25 mg UNSCH PRN PO 05/22/17 08:30 (Nitrostat Sl) 0.4 mg UNSCH PRN SL 05/22/17 08:30 (Catapres) 0.1 mg UNSCH PRN PO 05/22/17 08:30 05/22/17 18:40 (Gelfoam 12 Mm/7 Mm Top) 1 foam UNSCH PRN TOP 05/22/17 08:30 (NS Flush) UNSCH PRN IV FLUSH 05/22/17 12:00 (Heparin Inj) UNSCH PRN IV FLUSH 05/22/17 12:00 Ceftriaxone Sodium 1000 mg/ Sodium Chloride 100 ml @ 200 mls/hr Q24H IV 05/25/17 12:00 05/25/17 14:04 Lactated Ringer's 1,000 ml @ 30 mls/hr Q24H PRN IV 05/26/17 05:15 05/29/17 05:14 Sodium Chloride 500 ml @ 30 mls/hr [id number] PRN IV 05/26/17 05:15 05/29/17 05:14 (Betadine 5% Antisepsis Kit) 1 applic GRINDING MACHINE OPERATOR AUTOMATIC PRN EACH NARE 05/26/17 05:15 05/29/17 05:14 (Chlorhexidine 2% Cloth) 3 pack GRINDING MACHINE OPERATOR AUTOMATIC PRN TOPICAL 05/26/17 05:15 05/29/17 05:14 Vital Signs / I&O Vital Signs Date Time Temp Pulse Resp B/P (MAP) Pulse Ox O2 Delivery O2 Flow Rate FiO2 05/26/17 07:15 78 05/26/17 07:15 98.7 82 18 127/73 (91) 96 05/26/17 06:08 95 05/26/17 05:00 78 05/26/17 03:11 98.4 75 18 150/78 (102) 96 05/26/17 03:08 79 05/26/17 02:00 96 05/26/17 01:12 83 05/26/17 00:04 82 05/25/17 23:03 98.6 77 18 125/69 (87) 96 05/25/17 23:00 85 05/25/17 22:00 76 05/25/17 21:00 88 05/25/17 20:01 95 21 05/25/17 20:00 80 05/25/17 19:47 98.8 71 18 127/62 (83) 95 05/25/17 19:00 75 05/25/17 18:00 81 05/25/17 17:00 83 05/25/17 16:00 85 05/25/17 15:55 98.2 85 16 152/78 (102) 98 05/25/17 15:00 78 05/25/17 08:00 98.0 91 37 106/75 (85) 97 05/25/17 08:00 91 I/O 05/25/17 05/25/17 05/25/17 05/26/17 05/26/17 05/26/17 07:00 15:00 23:00 07:00 15:00 23:00 Intake Total 250 ml 920 ml 480 ml Output Total 40 ml 75 ml 100 ml Balance 210 ml 845 ml 380 ml Intake Oral 250 ml 920 ml 480 ml Output Urine Total 40 ml 75 ml 100 ml Stool Total 0 ml # Voids 1 # Bowel Movements 0 Physical Exam GENERAL: Well-developed well-nourished. In no acute distress. NECK: No carotid bruits. No JVD. CARDIOVASCULAR: Regular rate and rhythm. No murmur appreciated. RESPIRATORY: No accessory muscle use. Clear to auscultation. Breath sounds equal bilaterally. MUSCULOSKELETAL: No clubbing or cyanosis. No edema. NEUROLOGICAL: Awake and alert. Normal speech. Laboratory Laboratory Tests Test 05/25/17 11:47 05/26/17 04:23 Blood Urea Nitrogen 84 MG/DL 95 MG/DL Creatinine 15.06 MG/DL 16.59 MG/DL Random Glucose 125 MG/DL 95 MG/DL Total Protein 5.9 GM/DL Albumin 2.4 GM/DL Calcium Level 8.6 MG/DL 8.2 MG/DL Magnesium Level 2.1 MG/DL Alkaline Phosphatase 50 U/L Aspartate Amino Transf (AST/SGOT) 33 U/L Alanine Aminotransferase (ALT/SGPT) 39 U/L Total Bilirubin 0.3 MG/DL Sodium Level 131 MEQ/L 132 MEQ/L Potassium Level 3.9 MEQ/L 4.1 MEQ/L Chloride Level 96 MEQ/L 95 MEQ/L Carbon Dioxide Level 22.8 MEQ/L 21.0 MEQ/L Anion Gap 12 MEQ/L 16 MEQ/L Estimat Glomerular Filtration Rate 3 ML/MIN 3 ML/MIN White Blood Count 8.3 TH/MM3 Red Blood Count 3.11 MIL/MM3 Hemoglobin 9.9 GM/DL Hematocrit 27.9 % Mean Corpuscular Volume 89.6 FL Mean Corpuscular Hemoglobin 31.8 PG Mean Corpuscular Hemoglobin Concent 35.5 % Red Cell Distribution Width 13.3 % Platelet Count 171 TH/MM3 Mean Platelet Volume 9.5 FL Neutrophils (%) (Auto) 71.6 % Lymphocytes (%) (Auto) 14.7 % Monocytes (%) (Auto) 11.2 % Eosinophils (%) (Auto) 2.1 % Basophils (%) (Auto) 0.4 % Neutrophils # (Auto) 6.0 TH/MM3 Lymphocytes # (Auto) 1.2 TH/MM3 Monocytes # (Auto) 0.9 TH/MM3 Eosinophils # (Auto) 0.2 TH/MM3 Basophils # (Auto) 0.0 TH/MM3 CBC Comment DIFF FINAL Differential Comment Imaging Last Impressions Abdomen/Pelvis CT 05/25/17 0000 Signed Impressions: Service Date/Time: Thursday, May 25, 2017 09:57 - CONCLUSION: 1. Moderate to severe hydronephrosis left kidney due to an approximate 4-5 mm distal ureteral stone. 2. Cholelithiasis. 3. Spontaneously dense mass in the bladder of uncertain etiology and cystoscopy is suggested to further evaluate. Alejandra Hernández MD Catheter Placement X-Ray 05/22/17 0000 Signed Impressions: Service Date/Time: May 12:49 - CONCLUSION: Uncomplicated line placement as above. Delmar Su MD Abdomen Ultrasound 05/21/17 0000 Signed Impressions: Service Date/Time: Sunday, May 21, 2017 08:09 - CONCLUSION: 1. There is a solitary left kidney with mild distention of the left renal collecting system without definite hydronephrosis. Etiology for distention is uncertain. 2. Cholelithiasis. Diaz Yadav MD Chest X-Ray 05/20/171917 Signed Impressions: Service Date/Time: Saturday, May 20, 2017 19:37 - CONCLUSION: Cardiomegaly. Clear lungs. Stefan Davis Jr., MD Assessment and Plan Problem List: (1) Cardiomyopathy ICD Codes: I42.9 - Cardiomyopathy, unspecified (2) Coronary artery disease ICD Codes: I25.10 - Atherosclerotic heart disease of [place] coronary artery without angina pectoris Status: Chronic (3) CKD (chronic kidney disease) stage 3, GFR 30-59 ml/min ICD Codes: N18.3 - Chronic kidney disease, stage 3 (moderate) (4) Acute renal failure ICD Codes: N17.9 - Acute kidney failure, unspecified Status: Acute (5) Elevated troponin ICD Codes: R74.8 - Abnormal levels of other serum enzymes Status: Acute Assessment and Plan 76-year-old male with past medical history of CAD s/p CABG 2006, 90% left main lesion that was not amenable to PCI in 2016, cardiomyopathy, , MR, solitary kidney s/p renal CA, HTN, HLD. He presented with acute renal failure after several days of dry heaving and diarrhea. He's been having intermittent chest pain for the past few days as well. NSTEMI: History of previous lesion that was not amenable to PCI and patient now with acute renal failure. Previous cath films were reviewed, severe distal LM/ prox LCx (codominant) with disease and unsuccessful PCI. Medical management for now, increased Imdur to 120 mg with good effect. Hold off on [facility] with clinical improvement and acute renal failure. CAD: Continue aspirin, beta major, statin. HILARIA: With history of single kidney. Creatinine 15 and became anuric, nephrology on board, hemodialysis started on 05/22. Urinary obstruction: Neurology on board, cystoscopy today. Problem Qualifiers (1) Coronary artery disease: Qualified Codes: I25.10 - Atherosclerotic heart disease of [place] coronary artery without angina pectoris (2) Acute renal failure: Qualified Codes: N17.9 - Acute kidney failure, unspecified Nagi Roy May 26, 2017 07:48
[2017-05-26] MEDS: ASPIRIN 81 MG CHEW TAB CHEW SCH (09:00)
[2017-05-26] MEDS: HEPARIN SODIUM - SQ 10,000 UNITS/ML VIAL SQ SCH ×2 (09:00→20:20)
[2017-05-26] MEDS: CARVEDILOL 12.5 MG TAB PO SCH ×2 (09:00→20:20)
[2017-05-26] MEDS: FOLIC ACID 1 MG TAB PO SCH (09:00)
[2017-05-26] MEDS: CHOLECALCIFEROL (VIT D3) 1000 UNIT TAB PO SCH (09:00)
--- NOTE | 2017-05-26 10:56 | HHI.NPPN ---
Subjective History of Present Illness Patient is a 76-year-old male with renal failure, having nausea and vomiting Additional Remarks Patient is alert, no SOB, no flank pain, no edema. Minimal urine output. CT scan with noted moderate to severe hydronephrosis Review of Systems General Constitutional: Fatigue Objective Data Data Vital Signs Date Time Temp Pulse Resp B/P (MAP) Pulse Ox O2 Delivery O2 Flow Rate FiO2 05/26/17 09:00 92 05/26/17 08:00 Nasal Cannula 05/26/17 08:00 90 05/26/17 07:15 78 05/26/17 07:15 98.7 82 18 127/73 (91) 96 05/26/17 06:08 95 05/26/17 05:00 78 05/26/17 03:11 98.4 75 18 150/78 (102) 96 05/26/17 03:08 79 05/26/17 02:00 96 05/26/17 01:12 83 05/26/17 00:04 82 05/25/17 23:03 98.6 77 18 125/69 (87) 96 05/25/17 23:00 85 05/25/17 22:00 76 05/25/17 21:00 88 05/25/17 20:01 95 21 05/25/17 20:00 80 05/25/17 19:47 98.8 71 18 127/62 (83) 95 05/25/17 19:00 75 05/25/17 18:00 81 05/25/17 17:00 83 05/25/17 16:00 85 05/25/17 15:55 98.2 85 16 152/78 (102) 98 05/25/17 15:00 78 -: 05/26/17 0423 05/26/17 0423 Physical Exam General Appearance: Well Developed, Well Nourished Neck Neck Exam: Neck Supple Pulmonary Resp Exam: Decreased Bases Cardiology CV Exam: Regular, Normal Sinus Rhythm Gastrointestinal/Abdomen GI Exam: Soft, Non-Tender, Bowel Sounds Present Extremeties Extremities Exam: No Edema Neurologic Neuro Exam: Alert Assessment/Plan Problem List: (1) Acute renal failure ICD Codes: N17.9 - Acute kidney failure, unspecified Status: Acute Plan: Patient has elevation in the creatinine he has solitary kidney, ultrasound was nonrevealing. The etiology of kidney failure Could be severe dehydration, acute tubular necrosis, rule out other etiologies and myeloma His kidney failure result remains unresolved creatinine is 16.5 RAHEL negative, ANCA and GBM pending. Minimal UOP overnight. CT revealed . Moderate to severe hydronephrosis left kidney due to an approximate 4-5 mm distal ureteral stone, Cholelithiasis, Spontaneously dense mass in the bladder of uncertain etiology and cystoscopy is suggested to further evaluate. seen at dialysis UF 3 L going for cystoscopy continue supportive care (2) Coronary artery disease ICD Codes: I25.10 - Atherosclerotic heart disease of [place] coronary artery without angina pectoris Status: Acute Plan: As above have severe coronary artery disease (3) CKD (chronic kidney disease) stage 3, GFR 30-59 ml/min ICD Codes: N18.3 - Chronic kidney disease, stage 3 (moderate) Plan: Per records he had CK D (4) Gallstone ICD Codes: K80.20 - Calculus of gallbladder without cholecystitis without obstruction Plan: We'll continue to monitor (5) Dehydration ICD Codes: E86.0 - Dehydration Status: Acute (6) Elevated troponin ICD Codes: R74.8 - Abnormal levels of other serum enzymes Status: Acute (7) Acidosis, metabolic ICD Codes: E87.2 - Acidosis Plan: Start on sodium bicarbonate tablets, this is due to acute renal failure (8) Hydronephrosis ICD Codes: N13.30 - Unspecified hydronephrosis Plan: Moderate to severe hydronephrosis left kidney due to an approximate 4-5 mm distal ureteral stone Minimal UOP overnight. Banerjee catheter ordered Spontaneously dense mass in the bladder of uncertain etiology and cystoscopy is suggested to further evaluate. Urology consulted NPO after MN Problem Qualifiers (1) Acute renal failure: Qualified Codes: N17.9 - Acute kidney failure, unspecified (2) Coronary artery disease: Qualified Codes: I25.10 - Atherosclerotic heart disease of [place] coronary artery without angina pectoris Joseph Joy MD May 26, 2017 10:56
[2017-05-26] MEDS: GENTAMICIN SULFATE 20 MG/2 ML VIAL OTHER PRN (11:24)
[2017-05-26] MEDS: HEPARIN SODIUM - IV 10,000 UNITS/10 ML VIAL PRN (11:25)
[2017-05-26] MEDS: cefTRIAXone INJ 1,000 MG in SODIUM CHLORIDE 0.9% INJ 100 ML IV SCH (11:58)
[2017-05-26] MEDS ORDERED: NEOSTIGMINE 5 MG/5 ML SYRINGE IV PUSH ONE (12:00)
[2017-05-26] MEDS ORDERED: PROPOFOL 200 MG/20 ML AMP IV ONE (12:00)
[2017-05-26] MEDS ORDERED: ROCURONIUM INJ 50 MG/5 ML SYRINGE IV PUSH ONE (12:00)
[2017-05-26] MEDS ORDERED: ONDANSETRON HCL 4 MG/2 ML VIAL IV ONE (12:00)
[2017-05-26] MEDS ORDERED: LIDOCAINE HCL 1% PF 5 ML SYRINGE OTHER ONE (12:00)
[2017-05-26] MEDS ORDERED: DEXAMETHASONE SOD PHOS 4 MG/ML VIAL IV ONE (12:00)
[2017-05-26] MEDS ORDERED: PHENYLEPH/NS 1000 MCG/10 ML SYR IV ONE (12:00)
[2017-05-26] MEDS ORDERED: GLYCOPYRROLATE 1 MG/5 ML SYRINGE IV PUSH ONE (12:00)
--- NOTE | 2017-05-26 14:17 | HHI.PR ---
Subjective Remarks doing ok. Objective Vitals heart reg lung cta abd s/nt ext no edema lopes. bloody Vital Signs Date Time Temp Pulse Resp B/P (MAP) Pulse Ox O2 Delivery O2 Flow Rate FiO2 05/26/17 14:00 84 05/26/17 13:00 86 05/26/17 12:00 91 17 152/80 (104) 97 05/26/17 12:00 76 05/26/17 09:00 92 05/26/17 08:00 Nasal Cannula 05/26/17 08:00 90 05/26/17 07:15 78 05/26/17 07:15 98.7 82 18 127/73 (91) 96 05/26/17 06:08 95 05/26/17 05:00 78 05/26/17 03:11 98.4 75 18 150/78 (102) 96 05/26/17 03:08 79 05/26/17 02:00 96 05/26/17 01:12 83 05/26/17 00:04 82 05/25/17 23:03 98.6 77 18 125/69 (87) 96 05/25/17 23:00 85 05/25/17 22:00 76 05/25/17 21:00 88 05/25/17 20:01 95 21 05/25/17 20:00 80 05/25/17 19:47 98.8 71 18 127/62 (83) 95 05/25/17 19:00 75 05/25/17 18:00 81 05/25/17 17:00 83 05/25/17 16:00 85 05/25/17 15:55 98.2 85 16 152/78 (102) 98 05/25/17 15:00 78 05/26/17 05/26/17 05/27/17 15:00 23:00 07:00 Intake Total 100 ml Output Total 2100 ml Balance -2000 ml IV Total 100 ml Hemodialysis 2100 ml Result Diagram: 05/26/17 04205/26/17 042 Imaging Last Impressions Abdomen Ultrasound 05/21/17 0000 Signed Impressions: Service Date/Time: Sunday, May 21, 2017 08:09 - CONCLUSION: 1. There is a solitary left kidney with mild distention of the left renal collecting system without definite hydronephrosis. Etiology for distention is uncertain. 2. Cholelithiasis. Diaz Yadav MD Chest X-Ray 05/20/171917 Signed Impressions: Service Date/Time: Saturday, May 20, 2017 19:37 - CONCLUSION: Cardiomegaly. Clear lungs. Stefan Davis Jr., MD Procedures 05/22/17 vascath placed by IR A/P Problem List: (1) Acute renal failure ICD Codes: N17.9 - Acute kidney failure, unspecified Status: Acute Plan: - per Nephrology: - Patient has elevation in the creatinine he has solitary kidney, ultrasound was nonrevealing. The etiology of kidney failure Could be severe dehydration, acute tubular necrosis, rule out other etiologies and myeloma CT abd/pelvic reveals moderate to severe hydronephrosis left kidney due to an approximate 4-5 mm distal ureteral stone. Cholelithiasis. Spontaneously dense mass in the bladder Rocephin IV started - Pt started on HD per Nephrology (05/23) - DVT prophylaxis - going to OR today with Urology discussed with cardiology..ok to proceed with planned procedure today. (2) Coronary artery disease ICD Codes: I25.10 - Atherosclerotic heart disease of [place] coronary artery without angina pectoris Status: Acute Plan: - Comgmt with Cardiology - h/o CABG - pt chest pain free since starting imdur - ASA, coreg, lipitor - no intervention planned at this time. discussed with dr Crawford/Moises (3) BPH (benign prostatic hyperplasia) ICD Codes: N40.0 - Benign prostatic hyperplasia without lower urinary tract symptoms Status: Chronic (4) Hematuria ICD Codes: R31.9 - Hematuria, unspecified Status: Acute Plan: see above. related to stone Problem Qualifiers (1) Acute renal failure: Qualified Codes: N17.9 - Acute kidney failure, unspecified (2) Coronary artery disease: Qualified Codes: I25.10 - Atherosclerotic heart disease of [place] coronary artery without angina pectoris (3) BPH (benign prostatic hyperplasia): Qualified Codes: N40.0 - Benign prostatic hyperplasia without lower urinary tract symptoms Kevan Woodard MD May 26, 2017 14:17
[2017-05-26] MEDS ORDERED: fentaNYL CITRATE 250 MCG/5 ML AMP ONE (16:08)
[2017-05-26] MEDS ORDERED: IOHEXOL 350 MG/ML 50 ML BTL (for RAD DIAG) OTHER ONE (17:54)
--- NOTE | 2017-05-26 18:50 | HHI.PR ---
Subjective Patient symptoms today Cystoscopy identifed large bladder clot with bleeding vessel noted at the trigone of the bladder. The clot was irrigated out and the bleeding vessel was fulgurated. Banerjee catheter reinserted. Unable to pass a wire into the left collecting system. Significant resistance and tortuosity of the left distal ureter was encountered. Multiple attempts were made with different wires, all of which were unsuccessful to access the proximal left collecting system. Therefore a stent was unable to be placed. -Patient will need IR to place a left nephrostomy tube and may attempt placement of left ureteral stent via antegrade approach. Objective Vital Signs Vital Signs Date Time Temp Pulse Resp B/P (MAP) Pulse Ox O2 Delivery O2 Flow Rate FiO2 05/26/17 15:00 84 05/26/17 15:00 98.6 85 19 136/77 (96) 97 05/26/17 14:00 84 05/26/17 13:00 86 05/26/17 12:00 91 17 152/80 (104) 97 05/26/17 12:00 76 05/26/17 09:00 92 05/26/17 08:00 Nasal Cannula 05/26/17 08:00 90 05/26/17 07:15 78 05/26/17 07:15 98.7 82 18 127/73 (91) 96 05/26/17 06:08 95 05/26/17 05:00 78 05/26/17 03:11 98.4 75 18 150/78 (102) 96 05/26/17 03:08 79 05/26/17 02:00 96 05/26/17 01:12 83 05/26/17 00:04 82 05/25/17 23:03 98.6 77 18 125/69 (87) 96 05/25/17 23:00 85 05/25/17 22:00 76 05/25/17 21:00 88 05/25/17 20:01 95 21 05/25/17 20:00 80 05/25/17 19:47 98.8 71 18 127/62 (83) 95 05/25/17 19:00 75 Intake & Output 05/26/17 05/26/17 07:00 19:00 Intake Total 480 ml 100 ml Output Total 100 ml 2100 ml Balance 380 ml -2000 ml Intake Oral 480 ml IV Total 100 ml Output Urine Total 100 ml Hemodialysis 2100 ml Result Diagram: 05/26/17 0423 05/26/17 0423 Medications and IVs Current Medications Medications (Trade) Dose Ordered Sig/Rebekah Route Start Time Stop Time Status Last Admin (NS Flush) 2 ml UNSCH PRN IVF 05/20/17 19:30 05/20/17 23:44 (Heparin Inj) 5,000 units Q12HR SQ 05/20/17 21:00 05/25/17 21:16 (Aspirin Chew) 81 mg DAILY CHEW 05/21/17 09:00 05/25/17 07:54 (Lipitor) 80 mg HS PO 05/21/17 21:00 05/25/17 21:17 (Coreg) 25 mg BID PO 05/21/17 09:00 05/25/17 21:17 (Vitamin D3) 2,000 units DAILY PO 05/21/17 09:00 05/25/17 07:53 (Folate) 1 mg DAILY PO 05/21/17 09:00 05/25/17 07:53 (Sodium Bicarbonate) 650 mg Q8HR PO 05/21/17 14:00 05/26/17 14:18 (Imdur) 120 mg DAILY@07 PO 05/23/17 07:00 05/25/17 06:35 Sodium Chloride 1,000 ml @ 0 mls/hr Q0M PRN OTHER 05/22/17 08:25 (Heparin Inj) 8,000 units UNSCH PRN IV FLUSH 05/22/17 08:30 Sodium Chloride 1,000 ml @ 200 mls/hr Q5H PRN IV 05/22/17 08:25 Sodium Chloride 1,000 ml @ 0 mls/hr Q0M PRN OTHER 05/22/17 08:25 (Mannitol Inj) 12.5 gm UNSCH PRN IV 05/22/17 08:30 Albumin Human 100 ml @ 60 mls/hr UNSCH PRN IV 05/22/17 08:30 (NS Flush) 5 ml UNSCH PRN IV FLUSH 05/22/17 08:30 (Heparin Inj) UNSCH PRN .XX 05/22/17 08:30 05/26/17 11:25 (Gentamicin (Dialysis) Inj) 20 mg UNSCH PRN OTHER 05/22/17 08:30 05/26/17 11:24 (Zofran Inj) 4 mg UNSCH PRN IV PUSH 05/22/17 08:30 (Tylenol) 650 mg UNSCH PRN PO 05/22/17 08:30 (Benadryl) 25 mg UNSCH PRN PO 05/22/17 08:30 (Nitrostat Sl) 0.4 mg UNSCH PRN SL 05/22/17 08:30 (Catapres) 0.1 mg UNSCH PRN PO 05/22/17 08:30 05/22/17 18:40 (Gelfoam 12 Mm/7 Mm Top) 1 foam UNSCH PRN TOP 05/22/17 08:30 (NS Flush) UNSCH PRN IV FLUSH 05/22/17 12:00 (Heparin Inj) UNSCH PRN IV FLUSH 05/22/17 12:00 Ceftriaxone Sodium 1000 mg/ Sodium Chloride 100 ml @ 200 mls/hr Q24H IV 05/25/17 12:00 05/26/17 11:58 Lactated Ringer's 1,000 ml @ 30 mls/hr Q24H PRN IV 05/26/17 05:15 05/29/17 05:14 Sodium Chloride 500 ml @ 30 mls/hr [id number] PRN IV 05/26/17 05:15 05/29/17 05:14 (Betadine 5% Antisepsis Kit) 1 applic PHYSICAL SECURITY ENGINEER PRN EACH NARE 05/26/17 05:15 05/29/17 05:14 (Chlorhexidine 2% Cloth) 3 pack PHYSICAL SECURITY ENGINEER PRN TOPICAL 05/26/17 05:15 05/29/17 05:14 Assessment and Plan Problem List: (1) Acute renal failure ICD Code: N17.9 - Acute kidney failure, unspecified Status: Acute (2) Nephrolithiasis ICD Code: N20.0 - Calculus of kidney Problem Qualifiers (1) Acute renal failure: Qualified Codes: N17.9 - Acute kidney failure, unspecified Mehdi Harry MD May 26, 2017 18:50
[2017-05-26] MEDS ORDERED: DO NOT ADM ANY ANTICOAGULANT DRUGS PRN (18:56)
[2017-05-26] MEDS: ATORVASTATIN 40 MG TAB PO SCH (20:20)
[2017-05-27] VITALS (35 sets, daily range): BP systolic 99–148; BP diastolic 50–74; PULSE 71–93; RESP 16–18; TEMP 97–98.8; O2SAT 79–100
[2017-05-27] MEDS: SODIUM BICARBONATE 325 MG TAB PO SCH ×3 (06:03→22:00)
[2017-05-27] MEDS: ISOSORBIDE MONONITRATE 60 MG TAB PO SCH (06:03)
--- NOTE | 2017-05-27 07:57 | PD.CARD.PN ---
Subjective Subjective Remarks Events of yesterday noted. For nephrostomy tube today. No angina present Objective Medications Current Medications Medications (Trade) Dose Ordered Sig/Rebekah Route Start Time Stop Time Status Last Admin (NS Flush) 2 ml UNSCH PRN IVF 05/20/17 19:30 05/20/17 23:44 (Heparin Inj) 5,000 units Q12HR SQ 05/20/17 21:00 05/25/17 21:16 (Aspirin Chew) 81 mg DAILY CHEW 05/21/17 09:00 05/25/17 07:54 (Lipitor) 80 mg HS PO 05/21/17 21:00 05/26/17 20:20 (Coreg) 25 mg BID PO 05/21/17 09:00 05/26/17 20:20 (Vitamin D3) 2,000 units DAILY PO 05/21/17 09:00 05/25/17 07:53 (Folate) 1 mg DAILY PO 05/21/17 09:00 05/25/17 07:53 (Sodium Bicarbonate) 650 mg Q8HR PO 05/21/17 14:00 05/27/17 06:03 (Imdur) 120 mg DAILY@07 PO 05/23/17 07:00 05/27/17 06:03 Sodium Chloride 1,000 ml @ 0 mls/hr Q0M PRN OTHER 05/22/17 08:25 (Heparin Inj) 8,000 units UNSCH PRN IV FLUSH 05/22/17 08:30 Sodium Chloride 1,000 ml @ 200 mls/hr Q5H PRN IV 05/22/17 08:25 Sodium Chloride 1,000 ml @ 0 mls/hr Q0M PRN OTHER 05/22/17 08:25 (Mannitol Inj) 12.5 gm UNSCH PRN IV 05/22/17 08:30 Albumin Human 100 ml @ 60 mls/hr UNSCH PRN IV 05/22/17 08:30 (NS Flush) 5 ml UNSCH PRN IV FLUSH 05/22/17 08:30 (Heparin Inj) UNSCH PRN .XX 05/22/17 08:30 05/26/17 11:25 (Gentamicin (Dialysis) Inj) 20 mg UNSCH PRN OTHER 05/22/17 08:30 05/26/17 11:24 (Zofran Inj) 4 mg UNSCH PRN IV PUSH 05/22/17 08:30 (Tylenol) 650 mg UNSCH PRN PO 05/22/17 08:30 (Benadryl) 25 mg UNSCH PRN PO 05/22/17 08:30 (Nitrostat Sl) 0.4 mg UNSCH PRN SL 05/22/17 08:30 05/26/17 20:30 (Catapres) 0.1 mg UNSCH PRN PO 05/22/17 08:30 05/22/17 18:40 (Gelfoam 12 Mm/7 Mm Top) 1 foam UNSCH PRN TOP 05/22/17 08:30 (NS Flush) UNSCH PRN IV FLUSH 05/22/17 12:00 (Heparin Inj) UNSCH PRN IV FLUSH 05/22/17 12:00 Ceftriaxone Sodium 1000 mg/ Sodium Chloride 100 ml @ 200 mls/hr Q24H IV 05/25/17 12:00 05/26/17 11:58 Lactated Ringer's 1,000 ml @ 30 mls/hr Q24H PRN IV 05/26/17 05:15 05/29/17 05:14 Sodium Chloride 500 ml @ 30 mls/hr [id number] PRN IV 05/26/17 05:15 05/29/17 05:14 (Betadine 5% Antisepsis Kit) 1 applic AIR POLLUTION CONTROL ENGINEER PRN EACH NARE 05/26/17 05:15 05/29/17 05:14 (Chlorhexidine 2% Cloth) 3 pack AIR POLLUTION CONTROL ENGINEER PRN TOPICAL 05/26/17 05:15 05/29/17 05:14 Miscellaneous Information ALL NURSING DEPARTME... UNSCH PRN .XX 05/26/17 18:56 05/27/17 18:55 Vital Signs / I&O Vital Signs Date Time Temp Pulse Resp B/P (MAP) Pulse Ox O2 Delivery O2 Flow Rate FiO2 05/27/17 06:00 82 05/27/17 05:00 72 05/27/17 04:00 78 05/27/17 03:08 95 Nasal Cannula 1.00 05/27/17 03:05 97.7 87 18 148/74 (98) 95 05/27/17 03:00 78 05/27/17 02:01 81 05/27/17 00:00 80 05/26/17 23:21 98.2 72 18 132/65 (87) 98 05/26/17 23:00 89 05/26/17 22:00 71 05/26/17 22:00 95 Nasal Cannula 3.00 05/26/17 21:00 87 05/26/17 20:50 21 05/26/17 20:43 17 05/26/17 20:00 87 05/26/17 20:00 98.7 82 18 164/76 (105) 98 05/26/17 19:30 90 20 148/71 (96) 94 Nasal Cannula 2 05/26/17 19:15 91 18 123/61 (81) 96 Nasal Cannula 2 05/26/17 19:00 89 24 150/70 (96) 99 Nasal Cannula 2 05/26/17 18:52 98.5 77 14 106/52 (70) 92 Simple Mask 8 05/26/17 15:00 84 05/26/17 15:00 98.6 85 19 136/77 (96) 97 05/26/17 14:00 84 05/26/17 13:00 86 05/26/17 12:00 91 17 152/80 (104) 97 05/26/17 12:00 76 05/26/17 09:00 92 05/26/17 08:00 Nasal Cannula 05/26/17 08:00 90 I/O 05/26/17 05/26/17 05/26/17 05/27/17 05/27/17 05/27/17 07:00 15:00 23:00 07:00 15:00 23:00 Intake Total 480 ml 100 ml 1300 ml 480 ml Output Total 100 ml 2100 ml 510 ml 50 ml Balance 380 ml -2000 ml 790 ml 430 ml Intake Oral 480 ml 480 ml IV Total 100 ml Other 1300 ml Output Urine Total 100 ml 500 ml 50 ml Hemodialysis 2100 ml Estimated Blood Loss 10 ml Assessment and Plan Problem List: (1) Cardiomyopathy ICD Codes: I42.9 - Cardiomyopathy, unspecified Plan: Stable CV. Continue present medical management (2) Coronary artery disease ICD Codes: I25.10 - Atherosclerotic heart disease of [place] coronary artery without angina pectoris Status: Acute (3) CKD (chronic kidney disease) stage 3, GFR 30-59 ml/min ICD Codes: N18.3 - Chronic kidney disease, stage 3 (moderate) (4) Acute renal failure ICD Codes: N17.9 - Acute kidney failure, unspecified Status: Acute (5) Elevated troponin ICD Codes: R74.8 - Abnormal levels of other serum enzymes Status: Acute Problem Qualifiers (1) Coronary artery disease: Qualified Codes: I25.10 - Atherosclerotic heart disease of [place] coronary artery without angina pectoris (2) Acute renal failure: Qualified Codes: N17.9 - Acute kidney failure, unspecified Dante De Leon MD May 27, 2017 07:57
[2017-05-27] MEDS ORDERED: LEVOFLOXACIN 500 MG PREMIX INJ 100 ML IV ONE (08:00)
[2017-05-27] MEDS: FOLIC ACID 1 MG TAB PO SCH (08:57)
[2017-05-27] MEDS: ASPIRIN 81 MG CHEW TAB CHEW SCH (08:57)
[2017-05-27] MEDS: HEPARIN SODIUM - SQ 10,000 UNITS/ML VIAL SQ SCH ×2 (08:57→21:00)
[2017-05-27] MEDS: CHOLECALCIFEROL (VIT D3) 1000 UNIT TAB PO SCH (08:57)
[2017-05-27] MEDS: CARVEDILOL 12.5 MG TAB PO SCH ×2 (08:57→20:36)
--- NOTE | 2017-05-27 09:23 | HHI.PR ---
Subjective Remarks no complaints Objective Vitals heart reg lung cta abd s/nt ext no edema lopes. bloody Vital Signs Date Time Temp Pulse Resp B/P (MAP) Pulse Ox O2 Delivery O2 Flow Rate FiO2 05/27/17 08:03 98.0 84 16 135/70 (91) 95 05/27/17 08:03 95 Nasal Cannula 1.00 05/27/17 06:00 82 05/27/17 05:00 72 05/27/17 04:00 78 05/27/17 03:08 95 Nasal Cannula 1.00 05/27/17 03:05 97.7 87 18 148/74 (98) 95 05/27/17 03:00 78 05/27/17 02:01 81 05/27/17 00:00 80 05/26/17 23:21 98.2 72 18 132/65 (87) 98 05/26/17 23:00 89 05/26/17 22:00 71 05/26/17 22:00 95 Nasal Cannula 3.00 05/26/17 21:00 87 05/26/17 20:50 21 05/26/17 20:43 17 05/26/17 20:00 87 05/26/17 20:00 98.7 82 18 164/76 (105) 98 05/26/17 19:30 90 20 148/71 (96) 94 Nasal Cannula 2 05/26/17 19:15 91 18 123/61 (81) 96 Nasal Cannula 2 05/26/17 19:00 89 24 150/70 (96) 99 Nasal Cannula 2 05/26/17 18:52 98.5 77 14 106/52 (70) 92 Simple Mask 8 05/26/17 15:00 84 05/26/17 15:00 98.6 85 19 136/77 (96) 97 05/26/17 14:00 84 05/26/17 13:00 86 05/26/17 12:00 91 17 152/80 (104) 97 05/26/17 12:00 76 Result Diagram: 05/26/17 0423 05/26/17 0423 Imaging Last Impressions Abdomen Ultrasound 05/21/17 0000 Signed Impressions: Service Date/Time: Sunday, May 21, 2017 08:09 - CONCLUSION: 1. There is a solitary left kidney with mild distention of the left renal collecting system without definite hydronephrosis. Etiology for distention is uncertain. 2. Cholelithiasis. Diaz Yadav MD Chest X-Ray 05/20/171917 Signed Impressions: Service Date/Time: Saturday, May 20, 2017 19:37 - CONCLUSION: Cardiomegaly. Clear lungs. Stefan Davis Jr., MD Procedures 05/22/17 vascath placed by IR A/P Problem List: (1) Acute renal failure ICD Codes: N17.9 - Acute kidney failure, unspecified Status: Acute Plan: 1. johnie requiring hemodialysis 2. left ureter stone with severe hydronephrosis - Pt started on HD per Nephrology (05/23) -s/p cysto with fulguration of bleeding vessel in bladder. unable to pass wire/ stent into left ureter due to tortuosity. -going for left nephrostomy tube with IR today - DVT prophylaxis (2) Coronary artery disease ICD Codes: I25.10 - Atherosclerotic heart disease of [place] coronary artery without angina pectoris Status: Acute Plan: - Comgmt with Cardiology - h/o CABG - pt chest pain free since starting imdur - ASA, coreg, lipitor - no intervention planned at this time. discussed with dr Crawford/Moises (3) BPH (benign prostatic hyperplasia) ICD Codes: N40.0 - Benign prostatic hyperplasia without lower urinary tract symptoms Status: Chronic (4) Hematuria ICD Codes: R31.9 - Hematuria, unspecified Status: Acute Plan: see above. related to stone Problem Qualifiers (1) Acute renal failure: Qualified Codes: N17.9 - Acute kidney failure, unspecified (2) Coronary artery disease: Qualified Codes: I25.10 - Atherosclerotic heart disease of [place] coronary artery without angina pectoris (3) BPH (benign prostatic hyperplasia): Qualified Codes: N40.0 - Benign prostatic hyperplasia without lower urinary tract symptoms Kevan Woodard MD May 27, 2017 09:23
[2017-05-27] MEDS ORDERED: MIDAZOLAM HCL 2 MG/2 ML VIAL ONE ×3 (10:30→12:22)
[2017-05-27] MEDS ORDERED: fentaNYL CITRATE 250 MCG/5 ML AMP ONE (10:30)
[2017-05-27] MEDS ORDERED: HYDROmorphone HCL PF 2 MG/ML VIAL ONE (12:29)
--- NOTE | 2017-05-27 12:55 | PD.RAD ---
Post Procedure Progress Note Pre Procedure Diagnosis: (1) Hydronephrosis (2) Nephrolithiasis (3) Hematuria (4) Acute renal failure Post Procedure Diagnosis: (1) Nephrolithiasis (2) Hydronephrosis (3) Hematuria (4) Acute renal failure Procedure Date: May 27, 2017 Supervising Radiologist: Delmar Su Estimated blood loss: 5cc Anesthesia: Local, Conscious Sedation Plan of Activity Patient to Unit: ROPU Patient Condition: Fair Additional Comments: Left nephrostomy completed 8 belarusian nephrostomy drain placed. distal left ureter tortous and obstructed. Will allow left kidney to decompress and attempt passage to blader in 48 hours Full dictated report to follow. See PACS Report for procedural detail/treatment Delmar Su MD May 27, 2017 12:55
[2017-05-27] MEDS ORDERED: IOHEXOL 350 MG/ML 50 ML BTL (for RAD DIAG) OTHER ONE (13:50)
[2017-05-27] MEDS ORDERED: IOHEXOL 350 MG/ML 50 ML BTL (for RAD DIAG) IVCONTRAST ONE (13:50)
--- NOTE | 2017-05-27 14:57 | RADRPT ---
EXAM DATE/TIME: 05/27/2017 11:58 [facility] COMPARISON: PERCUTANEOUS ANTEGRADE PYELO,LT, May 27, 2017, 0:00. INDICATIONS : Patient with hydronephrosis in need of nephrostomy catheter placement. MEDICAL HISTORY : Stage III Chronic kidney disease, Angina, CAD, HLD, Cardiomyopathy with mild decrease in ejection fra ction, Mild aortic valve stenosis, Mitral regurgitation, Right renal cell carcinoma, BPH, NH SURGICAL HISTORY : CABGX4, Colonoscopy, Polyp removed, EGD, Right nephrectomy ENCOUNTER: Initial ACUITY: 1 week PAIN SCORE: 0/10 FLUORO TIME: 40 minutes IMAGE SERIES: 1 SEDATION TIME: 60 minutes CONTRAST: 120 cc Omnipaque (iohexol) 350 MEDICATION(S): 1.) 8.5 mg midazolam (Versed) IV 2.) 300 mcg fentanyl (Sublimaze) IV 3.) 2 mg hydromorphone (Dilaudid) IV Prophylactic antibiotics were administered with appropriate pre-procedure timing. Vancomycin within 2 hours of procedure, Ancef (or alternative) within 1 hour of procedure. DEVICE(S): 1.) 8 Polish X25CM Expel nephrostomy catheter PROCEDURE : 1. Ultrasound-guided puncture of the kidney. 2. Antegrade percutaneous pyelogram. 3. Percutaneous nephrostomy placement. 4. Conscious sedation with continuous EKG and oximetry monitoring. The risks, benefits and alternatives to the procedure were explained and verbal and written consent w as obtained. The site was prepped in sterile fashion. Full sterile technique was used, including ca p, mask, sterile gloves and gown and a large sterile sheet. Hand hygiene and 2% chlorhexidine and/or betadine/alcohol prep was utilized per protocol for cutaneous antisepsis. Sterile gel and sterile probe cover were utilized for ultrasound guidance. The skin and subcutaneous tissues were infiltrate d with local anesthetic solution. With ultrasound and fluoroscopic guidance the selected kidney was left kidney was punctured. A 0.018 wire was advanced into the collecting system. A 3 Polish dilator was advanced over the wire. Several scans were made to advance the wire down the proximal ureter. These were unsuccessful. There was some contrast extravasation. There is contrast within the collecting system. A new stick with a 22 gauge needle was performed into the more central aspect of the collecting system. A small amount of CO2 was administered into the re nal pelvis. This demonstrated a posterior upper Pole calyx. This calyx was punctured with a Shanks b david needle. A 0.035 angled Glidewire was advanced into the central collecting system. A Berenstein c atheter was advanced over the wire and the wire was manipulated down the left ureter. The 4 Polish catheter was manipulated into the distal left ureter. An injection of contrast confirmed an area of severe tortuosity and complete obstruction of the distal left ureter. The area was probed with a 0.035 angle Glidewire. The wire could not be easily advanced through the o bstruction. The decision was made to allow the system to decompress via the nephrostomy. We will have the patient return in approximately 24-48 hours and attempt to internalize a nephrostomy tube at joel t time. Conscious sedation was performed with the prescribed dosages and duration as above in the presence of an independent trained radiology nurse to assist in the monitoring of the patient. EKG and oximetry remained stable throughout the procedure. The patient tolerated the procedure well and there were n o complications. The patient was sent to post anesthesia recovery in stable condition. CONCLUSION: Uncomplicated nephrostomy tube placement as above. Delmar Su MD on May 27, 2017 at 14:36 Board Certified Radiologist. This report was verified electronically.
--- NOTE | 2017-05-27 15:11 | HHI.NPPN ---
Subjective History of Present Illness Patient is a 76-year-old male with renal failure, having nausea and vomiting Additional Remarks Patient is drowsy from anesthesia on O2 Review of Systems General Constitutional: Fatigue Objective Data Data Vital Signs Date Time Temp Pulse Resp B/P (MAP) Pulse Ox O2 Delivery O2 Flow Rate FiO2 05/27/17 14:45 72 103/66 (78) 99 104/58 (73) 05/27/17 14:30 72 101/57 (72) 99 104/59 (74) 05/27/17 14:25 79 05/27/17 14:15 79 103/58 (73) 99 103/59 (74) 05/27/17 14:00 79 99/69 (79) 99 100/57 (71) 05/27/17 13:45 79 102/71 (81) 98 113/61 (78) 05/27/17 13:43 97.5 71 16 102/71 (81) 95 102/50 (67) 05/27/17 13:30 80 123/69 (87) 98 05/27/17 13:15 83 79 05/27/17 13:00 83 05/27/17 10:04 82 05/27/17 09:00 80 05/27/17 08:03 98.0 84 16 135/70 (91) 95 05/27/17 08:03 95 Nasal Cannula 1.00 05/27/17 08:00 76 05/27/17 07:00 79 05/27/17 06:00 82 05/27/17 05:00 72 05/27/17 04:00 78 05/27/17 03:08 95 Nasal Cannula 1.00 05/27/17 03:05 97.7 87 18 148/74 (98) 95 05/27/17 03:00 78 05/27/17 02:01 81 05/27/17 00:00 80 05/26/17 23:21 98.2 72 18 132/65 (87) 98 05/26/17 23:00 89 05/26/17 22:00 71 05/26/17 22:00 95 Nasal Cannula 3.00 05/26/17 21:00 87 05/26/17 20:50 21 05/26/17 20:43 17 05/26/17 20:00 87 05/26/17 20:00 98.7 82 18 164/76 (105) 98 05/26/17 19:30 90 20 148/71 (96) 94 Nasal Cannula 2 05/26/17 19:15 91 18 123/61 (81) 96 Nasal Cannula 2 05/26/17 19:00 89 24 150/70 (96) 99 Nasal Cannula 2 05/26/17 18:52 98.5 77 14 106/52 (70) 92 Simple Mask 8 -: 05/26/17 0423 05/26/17 0423 Physical Exam General Appearance: Well Developed, Well Nourished Neck Neck Exam: Neck Supple Pulmonary Resp Exam: Decreased Bases Cardiology CV Exam: Regular, Normal Sinus Rhythm Gastrointestinal/Abdomen GI Exam: Soft, Non-Tender, Bowel Sounds Present Extremeties Extremities Exam: No Edema Neurologic Neuro Exam: Alert Assessment/Plan Problem List: (1) Acute renal failure ICD Codes: N17.9 - Acute kidney failure, unspecified Status: Acute Plan: Patient has elevation in the creatinine he has solitary kidney, ultrasound was nonrevealing. The etiology of kidney failure Could be severe dehydration, acute tubular necrosis, rule out other etiologies and myeloma His kidney failure result remains unresolved creatinine is 16.5 RAHEL negative, ANCA and GBM pending. Minimal UOP overnight. CT revealed . Moderate to severe hydronephrosis left kidney due to an approximate 4-5 mm distal ureteral stone, Cholelithiasis, Spontaneously dense mass in the bladder of uncertain etiology Urology tried to attempt stent was unsuccessful Nephrostomy tube placed Continue to monitor (2) Coronary artery disease ICD Codes: I25.10 - Atherosclerotic heart disease of [place] coronary artery without angina pectoris Status: Acute Plan: As above have severe coronary artery disease (3) CKD (chronic kidney disease) stage 3, GFR 30-59 ml/min ICD Codes: N18.3 - Chronic kidney disease, stage 3 (moderate) Plan: Per records he had CK D (4) Gallstone ICD Codes: K80.20 - Calculus of gallbladder without cholecystitis without obstruction Plan: We'll continue to monitor (5) Dehydration ICD Codes: E86.0 - Dehydration Status: Acute (6) Elevated troponin ICD Codes: R74.8 - Abnormal levels of other serum enzymes Status: Acute (7) Acidosis, metabolic ICD Codes: E87.2 - Acidosis Plan: Start on sodium bicarbonate tablets, this is due to acute renal failure (8) Hydronephrosis ICD Codes: N13.30 - Unspecified hydronephrosis Plan: Moderate to severe hydronephrosis left kidney due to an approximate 4-5 mm distal ureteral stone Minimal UOP overnight. Banerjee catheter ordered Spontaneously dense mass in the bladder of uncertain etiology and cystoscopy is suggested to further evaluate. Urology consulted NPO after MN Problem Qualifiers (1) Acute renal failure: Qualified Codes: N17.9 - Acute kidney failure, unspecified (2) Coronary artery disease: Qualified Codes: I25.10 - Atherosclerotic heart disease of [place] coronary artery without angina pectoris Joseph Joy MD May 27, 2017 15:11
[2017-05-27] MEDS: cefTRIAXone INJ 1,000 MG in SODIUM CHLORIDE 0.9% INJ 100 ML IV SCH (15:21)
[2017-05-27 15:52] LABS: GLOMERULAR BASEMENT MEMBRAN AB <1.0 AI (<1.0)
[2017-05-27 17:16] LABS: BICARBONATE 25.7 MEQ/L (21.0-32.0); CALCIUM 8.6 MG/DL (8.5-10.1)
[2017-05-27 17:22] LABS: CREATININE 11.53 MG/DL (0.60-1.30)
--- NOTE | 2017-05-27 18:21 | MP ---
cc: JOHN LEDBETTER MD DATE OF SURGERY 05/26/2017 PREOPERATIVE DIAGNOSIS Renal failure with solitary kidney, obstructive distal ureteral stone. POSTOPERATIVE DIAGNOSES 1. Completely obstructing left distal ureteral stone. 2. Large bladder clot noted. No tumors. Bleeding vessel noted at the trigone. 3. Benign prostatic hypertrophy. PERTINENT FINDINGS 1. Unable to pass wire to the proximal kidney on the left due to significant resistance and tortuosity of the left distal ureter. 2. Large bladder clot noted. This was completely removed. 3. Bleeding vessel noted at the base of the bladder. This was fulgurated. 4. Large bilobar hypertrophy. No significant median lobe, however, significant kissing bilateral lobes with elongated prostatic urethra. PROCEDURE PERFORMED 1. Cystoscopy. 2. Left retrograde pyelogram. 3. Attempted left ureteral stent placement. 4. Clot evacuation. 5. Fulguration of bleeders. HISTORY OF THE PRESENT ILLNESS Isaias Pierce is a 76-year-old male with a solitary left kidney found to have obstructing distal ureter stone with creatinine over 12. The patient is not having any abdominal or flank pain. CT scan identified these findings as well as a possible bladder mass. He therefore, presents for cystoscopy and left renal stent placement. Of note the patient has significant cardiac issues. PROCEDURE IN DETAILS After proper informed consent was obtained, the patient went to the operating room and [place] supine on the table. The patient was placed under anesthesia. The patient placed on suction, prepped and draped in the standard surgical fashion. After proctoscopy was completed, the scope inserted through the urethra and the bladder. The urethra mucosa within normal limits without any narrowing, lesions or abnormalities. The bladder inspected bilateral ureteral orfices were identified, however, significant large bladder clot noted within the bladder. The prostate was also noted to be rather large and elongated with bilobar hypertrophy. Initial attempts were to remove the clot, however, due to the cardiac issues it was recommended by anesthesia to do what was absolutely necessary in order to get the patient off of the table as quickly as possible. Therefore, the left ureter was cannulated and the wire was passed in the left distal ureter, however, significant resistance was met. Multiple attempts to pass the wire were made, however, unsuccessful. At this point open-ended ureteral catheter was placed and a retrograde pyelogram completed which showed significant tortuosity in the proximal ureteral with a basically 360 degree twist at the distal ureter with evidence of hydronephrosis in the proximal portion of the kidney. Contrast was able to be passed in to the proximal ureter. At this point a Glidewire was then attempted to be used to be passed into this tortuous region. However, the wire was unable to be passed into the proximal ureter. Multiple attempts were made, all of which were unsuccessful. Given the patient's cardiac history it was decided to abort this portion of the procedure. It is unclear if it is purely tortuosity of the distal ureter that was causing or preventing the wire from going up or if this is also due to the stone that is lodged in this location. At this point attention was turned to the larger bladder clot. Resectoscope was inserted and the clot was resected and irrigated out with Ellik evacuator. After the clot was removed a bleeding vessel was pumping identified at the trigone. This was fulgurated. No other bleeding vessels were noted. The remainder of the bladder was inspected with no other abnormalities. No tumors or lesions noted throughout. At this point the scope was removed and a 22 Italian Banerjee catheter was inserted and balloon infiltrated with 10 cc. The patient tolerated the procedure well with no complications. He was awoken from anesthesia and taken to the postanesthesia care unit in guarded condition. DISPOSITION Admitted for observation. As we were unable to place a stent in the solitary kidney the patient will require interventional radiology to place a nephrostomy tube tomorrow in order to adequately drain the left collecting system. John Ledbetter M.D. PABLO /6:41 PM /5:47 PM SUMAYA
[2017-05-27] MEDS: ATORVASTATIN 40 MG TAB PO SCH (20:35)
[2017-05-28] VITALS (24 sets, daily range): BP systolic 99–128; BP diastolic 45–66; PULSE 74–101; RESP 16–19; TEMP 98–98.4; O2SAT 93–96
[2017-05-28 05:07] LABS: BICARBONATE 26.4 MEQ/L (21.0-32.0); CALCIUM 8.9 MG/DL (8.5-10.1); CREATININE 5.19 MG/DL (0.60-1.30)
[2017-05-28] MEDS: SODIUM BICARBONATE 325 MG TAB PO SCH ×3 (06:38→21:30)
[2017-05-28] MEDS: ISOSORBIDE MONONITRATE 60 MG TAB PO SCH (06:38)
--- NOTE | 2017-05-28 08:21 | PD.CARD.PN ---
Subjective Subjective Remarks No further chest pain. No SOB. Nephrotomy tube in place w/ good output overnight. Objective Medications Current Medications Medications (Trade) Dose Ordered Sig/Rebekah Route Start Time Stop Time Status Last Admin (NS Flush) 2 ml UNSCH PRN IVF 05/20/17 19:30 05/20/17 23:44 (Heparin Inj) 5,000 units Q12HR SQ 05/20/17 21:00 05/25/17 21:16 (Aspirin Chew) 81 mg DAILY CHEW 05/21/17 09:00 05/27/17 08:57 (Lipitor) 80 mg HS PO 05/21/17 21:00 05/27/17 20:35 (Coreg) 25 mg BID PO 05/21/17 09:00 05/27/17 20:36 (Vitamin D3) 2,000 units DAILY PO 05/21/17 09:00 05/27/17 08:57 (Folate) 1 mg DAILY PO 05/21/17 09:00 05/27/17 08:57 (Sodium Bicarbonate) 650 mg Q8HR PO 05/21/17 14:00 05/28/17 06:38 (Imdur) 120 mg DAILY@07 PO 05/23/17 07:00 05/28/17 06:38 Sodium Chloride 1,000 ml @ 0 mls/hr Q0M PRN OTHER 05/22/17 08:25 (Heparin Inj) 8,000 units UNSCH PRN IV FLUSH 05/22/17 08:30 Sodium Chloride 1,000 ml @ 200 mls/hr Q5H PRN IV 05/22/17 08:25 Sodium Chloride 1,000 ml @ 0 mls/hr Q0M PRN OTHER 05/22/17 08:25 (Mannitol Inj) 12.5 gm UNSCH PRN IV 05/22/17 08:30 Albumin Human 100 ml @ 60 mls/hr UNSCH PRN IV 05/22/17 08:30 (NS Flush) 5 ml UNSCH PRN IV FLUSH 05/22/17 08:30 (Heparin Inj) UNSCH PRN .XX 05/22/17 08:30 05/26/17 11:25 (Gentamicin (Dialysis) Inj) 20 mg UNSCH PRN OTHER 05/22/17 08:30 05/26/17 11:24 (Zofran Inj) 4 mg UNSCH PRN IV PUSH 05/22/17 08:30 (Tylenol) 650 mg UNSCH PRN PO 05/22/17 08:30 (Benadryl) 25 mg UNSCH PRN PO 05/22/17 08:30 (Nitrostat Sl) 0.4 mg UNSCH PRN SL 05/22/17 08:30 05/26/17 20:30 (Catapres) 0.1 mg UNSCH PRN PO 05/22/17 08:30 05/22/17 18:40 (Gelfoam 12 Mm/7 Mm Top) 1 foam UNSCH PRN TOP 05/22/17 08:30 (NS Flush) UNSCH PRN IV FLUSH 05/22/17 12:00 (Heparin Inj) UNSCH PRN IV FLUSH 05/22/17 12:00 Ceftriaxone Sodium 1000 mg/ Sodium Chloride 100 ml @ 200 mls/hr Q24H IV 05/25/17 12:00 05/27/17 15:21 Lactated Ringer's 1,000 ml @ 30 mls/hr Q24H PRN IV 05/26/17 05:15 05/29/17 05:14 Sodium Chloride 500 ml @ 30 mls/hr [id number] PRN IV 05/26/17 05:15 05/29/17 05:14 (Betadine 5% Antisepsis Kit) 1 applic [employer] PRN EACH NARE 05/26/17 05:15 05/29/17 05:14 (Chlorhexidine 2% Cloth) 3 pack [employer] PRN TOPICAL 05/26/17 05:15 05/29/17 05:14 Vital Signs / I&O Vital Signs Date Time Temp Pulse Resp B/P (MAP) Pulse Ox O2 Delivery O2 Flow Rate FiO2 05/28/17 08:10 80 05/28/17 07:32 96 Room Air 05/28/17 07:19 98.0 89 16 125/66 (85) 96 128/66 (86) 05/28/17 07:00 79 05/28/17 05:08 77 05/28/17 04:09 80 05/28/17 03:24 98.2 86 17 99/56 (70) 95 102/45 (64) 05/28/17 03:14 79 05/28/17 02:04 81 05/28/17 01:00 77 05/28/17 00:03 76 05/27/17 23:06 98.8 82 18 106/58 (74) 97 05/27/17 23:00 79 05/27/17 22:00 76 05/27/17 21:13 96 Nasal Cannula 1.00 05/27/17 21:00 74 05/27/17 19:15 97 Nasal Cannula 2.00 05/27/17 19:15 98.4 82 17 133/58 (83) 96 Arterial Line 05/27/17 19:00 93 05/27/17 18:02 82 05/27/17 17:00 78 05/27/17 16:00 76 05/27/17 15:03 97.0 75 16 99/56 (70) 100 104/62 (76) 05/27/17 15:00 82 05/27/17 14:45 72 103/66 (78) 99 104/58 (73) 05/27/17 14:30 72 101/57 (72) 99 104/59 (74) 05/27/17 14:25 79 05/27/17 14:15 79 103/58 (73) 99 103/59 (74) 05/27/17 14:00 79 99/69 (79) 99 100/57 (71) 05/27/17 13:45 79 102/71 (81) 98 113/61 (78) 05/27/17 13:43 97.5 71 16 102/71 (81) 95 102/50 (67) 05/27/17 13:30 80 123/69 (87) 98 05/27/17 13:21 96 Non-Rebreather 15.00 05/27/17 13:15 83 79 05/27/17 13:00 83 05/27/17 10:04 82 05/27/17 09:00 80 I/O 05/27/17 05/27/17 05/27/17 05/28/17 05/28/17 05/28/17 07:00 15:00 23:00 07:00 15:00 23:00 Intake Total 480 ml 240 ml 1200 ml Output Total 50 ml 1500 ml 4150 ml Balance 430 ml -1260 ml -2950 ml Intake Oral 480 ml 240 ml 1200 ml Output Urine Total 50 ml 100 ml 25 ml Stool Total 0 ml Drainage Total 1400 ml 4125 ml Physical Exam GENERAL: Well-developed well-nourished. In no acute distress. NECK: No carotid bruits. No JVD. CARDIOVASCULAR: Regular rate and rhythm. No murmur appreciated. RESPIRATORY: No accessory muscle use. Clear to auscultation. Breath sounds equal bilaterally. MUSCULOSKELETAL: No clubbing or cyanosis. No edema. NEUROLOGICAL: Awake and alert. Normal speech. Laboratory Laboratory Tests Test 05/27/17 16:19 05/28/17 03:57 Blood Urea Nitrogen 76 MG/DL 51 MG/DL Creatinine 11.53 MG/DL 5.19 MG/DL Random Glucose 127 MG/DL 112 MG/DL Calcium Level 8.6 MG/DL 8.9 MG/DL Sodium Level 135 MEQ/L 139 MEQ/L Potassium Level 5.0 MEQ/L 4.6 MEQ/L Chloride Level 96 MEQ/L 103 MEQ/L Carbon Dioxide Level 25.7 MEQ/L 26.4 MEQ/L Anion Gap 13 MEQ/L 10 MEQ/L Estimat Glomerular Filtration Rate 4 ML/MIN 11 ML/MIN Phosphorus Level 4.0 MG/DL Imaging Last Impressions Nephrostomy 05/27/17 0000 Signed Impressions: Service Date/Time: Saturday, May 27, 2017 11:58 - CONCLUSION: Uncomplicated nephrostomy tube placement as above. Delmar Su MD Abdomen/Pelvis CT 05/25/17 0000 Signed Impressions: Service Date/Time: Thursday, May 25, 2017 09:57 - CONCLUSION: 1. Moderate to severe hydronephrosis left kidney due to an approximate 4-5 mm distal ureteral stone. 2. Cholelithiasis. 3. Spontaneously dense mass in the bladder of uncertain etiology and cystoscopy is suggested to further evaluate. Alejandra Hernández MD Catheter Placement X-Ray 05/22/17 0000 Signed Impressions: Service Date/Time: May 12:49 - CONCLUSION: Uncomplicated line placement as above. Delmar Su MD Abdomen Ultrasound 05/21/17 0000 Signed Impressions: Service Date/Time: Sunday, May 21, 2017 08:09 - CONCLUSION: 1. There is a solitary left kidney with mild distention of the left renal collecting system without definite hydronephrosis. Etiology for distention is uncertain. 2. Cholelithiasis. Diaz Yadav MD Chest X-Ray 05/20/171917 Signed Impressions: Service Date/Time: Saturday, May 20, 2017 19:37 - CONCLUSION: Cardiomegaly. Clear lungs. Stefan Davis Jr., MD Assessment and Plan Problem List: (1) Cardiomyopathy ICD Codes: I42.9 - Cardiomyopathy, unspecified (2) Coronary artery disease ICD Codes: I25.10 - Atherosclerotic heart disease of [place] coronary artery without angina pectoris Status: Acute (3) CKD (chronic kidney disease) stage 3, GFR 30-59 ml/min ICD Codes: N18.3 - Chronic kidney disease, stage 3 (moderate) (4) Acute renal failure ICD Codes: N17.9 - Acute kidney failure, unspecified Status: Acute (5) Elevated troponin ICD Codes: R74.8 - Abnormal levels of other serum enzymes Status: Acute Assessment and Plan 76-year-old male with past medical history of CAD s/p CABG 2006, 90% left main lesion that was not amenable to PCI in 2016, cardiomyopathy, , MR, solitary kidney s/p renal CA, HTN, HLD. He presented with acute renal failure after several days of dry heaving and diarrhea. He's been having intermittent chest pain for the past few days as well. CAD: Stable. No further angina. Continue aspirin, beta major, statin, Imdur. HILARIA: With history of single kidney. Nephrology on board, started on hemodialysis 05/22. Urinary obstruction: Urology on board, s/p cystoscopy and nephrostomy tube placement. Problem Qualifiers (1) Coronary artery disease: Qualified Codes: I25.10 - Atherosclerotic heart disease of [place] coronary artery without angina pectoris (2) Acute renal failure: Qualified Codes: N17.9 - Acute kidney failure, unspecified Nagi Roy May 28, 2017 08:21
--- NOTE | 2017-05-28 08:33 | HHI.PR ---
Subjective Remarks doing well. 6L urine output after nephrostomy tube Objective Vitals heart reg lung cta abd s/nt ext left nephrostomy tube. clear urine lopes Vital Signs Date Time Temp Pulse Resp B/P (MAP) Pulse Ox O2 Delivery O2 Flow Rate FiO2 05/28/17 08:10 80 05/28/17 07:32 96 Room Air 05/28/17 07:19 98.0 89 16 125/66 (85) 96 128/66 (86) 05/28/17 07:00 79 05/28/17 05:08 77 05/28/17 04:09 80 05/28/17 03:24 98.2 86 17 99/56 (70) 95 102/45 (64) 05/28/17 03:14 79 05/28/17 02:04 81 05/28/17 01:00 77 05/28/17 00:03 76 05/27/17 23:06 98.8 82 18 106/58 (74) 97 05/27/17 23:00 79 05/27/17 22:00 76 05/27/17 21:13 96 Nasal Cannula 1.00 05/27/17 21:00 74 05/27/17 19:15 97 Nasal Cannula 2.00 05/27/17 19:15 98.4 82 17 133/58 (83) 96 Arterial Line 05/27/17 19:00 93 05/27/17 18:02 82 05/27/17 17:00 78 05/27/17 16:00 76 05/27/17 15:03 97.0 75 16 99/56 (70) 100 104/62 (76) 05/27/17 15:00 82 05/27/17 14:45 72 103/66 (78) 99 104/58 (73) 05/27/17 14:30 72 101/57 (72) 99 104/59 (74) 05/27/17 14:25 79 05/27/17 14:15 79 103/58 (73) 99 103/59 (74) 05/27/17 14:00 79 99/69 (79) 99 100/57 (71) 05/27/17 13:45 79 102/71 (81) 98 113/61 (78) 05/27/17 13:43 97.5 71 16 102/71 (81) 95 102/50 (67) 05/27/17 13:30 80 123/69 (87) 98 05/27/17 13:21 96 Non-Rebreather 15.00 05/27/17 13:15 83 79 05/27/17 13:00 83 05/27/17 10:04 82 05/27/17 09:00 80 Result Diagram: 05/26/17 0423 05/28/17 0357 Imaging Last Impressions Abdomen Ultrasound 05/21/17 0000 Signed Impressions: Service Date/Time: Sunday, May 21, 2017 08:09 - CONCLUSION: 1. There is a solitary left kidney with mild distention of the left renal collecting system without definite hydronephrosis. Etiology for distention is uncertain. 2. Cholelithiasis. Diaz Yadav MD Chest X-Ray 05/20/17 1918 Signed Impressions: Service Date/Time: Saturday, May 20, 2017 19:37 - CONCLUSION: Cardiomegaly. Clear lungs. Stefan Davis Jr., MD Procedures 05/22/17 vascath placed by IR A/P Problem List: (1) Acute renal failure ICD Codes: N17.9 - Acute kidney failure, unspecified Status: Acute Plan: 1. johnie requiring hemodialysis. obstruction. 2. left ureter stone with severe hydronephrosis - Pt started on HD per Nephrology (05/23) -s/p cysto with fulguration of bleeding vessel in bladder. unable to pass wire/ stent into left ureter due to tortuosity. - left nephrostomy tube with IR on 05/27 so far about 6L output through nephrostomy tube and cr down to 5 from 16 going back for stent in next 24-48hrs -PT - DVT prophylaxis (2) Coronary artery disease ICD Codes: I25.10 - Atherosclerotic heart disease of [place] coronary artery without angina pectoris Status: Acute Plan: - Comgmt with Cardiology - h/o CABG - pt chest pain free since starting imdur - ASA, coreg, lipitor - no intervention planned at this time. discussed with dr Crawford/Moises (3) BPH (benign prostatic hyperplasia) ICD Codes: N40.0 - Benign prostatic hyperplasia without lower urinary tract symptoms Status: Chronic (4) Hematuria ICD Codes: R31.9 - Hematuria, unspecified Status: Acute Plan: see above. related to stone Problem Qualifiers (1) Acute renal failure: Qualified Codes: N17.9 - Acute kidney failure, unspecified (2) Coronary artery disease: Qualified Codes: I25.10 - Atherosclerotic heart disease of [place] coronary artery without angina pectoris (3) BPH (benign prostatic hyperplasia): Qualified Codes: N40.0 - Benign prostatic hyperplasia without lower urinary tract symptoms Kevan Woodard MD May 28, 2017 08:33
[2017-05-28] MEDS: CHOLECALCIFEROL (VIT D3) 1000 UNIT TAB PO SCH (08:50)
[2017-05-28] MEDS: CARVEDILOL 12.5 MG TAB PO SCH ×2 (08:50→21:18)
[2017-05-28] MEDS: ASPIRIN 81 MG CHEW TAB CHEW SCH (08:50)
[2017-05-28] MEDS: FOLIC ACID 1 MG TAB PO SCH (08:51)
[2017-05-28] MEDS: HEPARIN SODIUM - SQ 10,000 UNITS/ML VIAL SQ SCH ×2 (08:52→21:14)
[2017-05-28] MEDS: SODIUM CHLORIDE 0.9% FLUSH 10 ML FLUSH IVF PRN (08:54)
[2017-05-28] MEDS: cefTRIAXone INJ 1,000 MG in SODIUM CHLORIDE 0.9% INJ 100 ML IV SCH (12:33)
--- NOTE | 2017-05-28 13:44 | HHI.NPPN ---
Subjective History of Present Illness Patient is a 76-year-old male with renal failure, having nausea and vomiting Additional Remarks Patient awake feels well Review of Systems General Constitutional: Fatigue Objective Data Data Vital Signs Date Time Temp Pulse Resp B/P (MAP) Pulse Ox O2 Delivery O2 Flow Rate FiO2 05/28/17 12:03 85 05/28/17 11:46 98.3 79 16 100/58 (72) 96 126/55 (78) 05/28/17 11:00 77 05/28/17 10:05 87 05/28/17 09:13 93 21 05/28/17 09:03 101 05/28/17 08:10 80 05/28/17 07:32 96 Room Air 05/28/17 07:19 98.0 89 16 125/66 (85) 96 128/66 (86) 05/28/17 07:00 79 05/28/17 05:08 77 05/28/17 04:09 80 05/28/17 03:24 98.2 86 17 99/56 (70) 95 102/45 (64) 05/28/17 03:14 79 05/28/17 02:04 81 05/28/17 01:00 77 05/28/17 00:03 76 05/27/17 23:06 98.8 82 18 106/58 (74) 97 05/27/17 23:00 79 05/27/17 22:00 76 05/27/17 21:13 96 Nasal Cannula 1.00 05/27/17 21:00 74 05/27/17 19:15 97 Nasal Cannula 2.00 05/27/17 19:15 98.4 82 17 133/58 (83) 96 Arterial Line 05/27/17 19:00 93 05/27/17 18:02 82 05/27/17 17:00 78 05/27/17 16:00 76 05/27/17 15:03 97.0 75 16 99/56 (70) 100 104/62 (76) 05/27/17 15:00 82 05/27/17 14:45 72 103/66 (78) 99 104/58 (73) 05/27/17 14:30 72 101/57 (72) 99 104/59 (74) 05/27/17 14:25 79 05/27/17 14:15 79 103/58 (73) 99 103/59 (74) 05/27/17 14:00 79 99/69 (79) 99 100/57 (71) 05/27/17 13:45 79 102/71 (81) 98 113/61 (78) 05/27/17 13:43 97.5 71 16 102/71 (81) 95 102/50 (67) -: 05/26/17 0423 05/28/17 0357 Physical Exam General Appearance: Well Developed, Well Nourished Neck Neck Exam: Neck Supple Pulmonary Resp Exam: Decreased Bases Cardiology CV Exam: Regular, Normal Sinus Rhythm Gastrointestinal/Abdomen GI Exam: Soft, Non-Tender, Bowel Sounds Present Extremeties Extremities Exam: No Edema Neurologic Neuro Exam: Alert Assessment/Plan Problem List: (1) Acute renal failure ICD Codes: N17.9 - Acute kidney failure, unspecified Status: Acute Plan: Patient has recovery from ARF More then [address] revealed . Moderate to severe hydronephrosis left kidney due to an approximate 4-5 mm distal ureteral stone, s/p Nephrostomy. cr declined dc dialysis Vascath to be dc tomorrow (2) Coronary artery disease ICD Codes: I25.10 - Atherosclerotic heart disease of [place] coronary artery without angina pectoris Status: Acute Plan: As above have severe coronary artery disease (3) CKD (chronic kidney disease) stage 3, GFR 30-59 ml/min ICD Codes: N18.3 - Chronic kidney disease, stage 3 (moderate) Plan: Per records he had CK D (4) Gallstone ICD Codes: K80.20 - Calculus of gallbladder without cholecystitis without obstruction Plan: We'll continue to monitor (5) Dehydration ICD Codes: E86.0 - Dehydration Status: Acute (6) Elevated troponin ICD Codes: R74.8 - Abnormal levels of other serum enzymes Status: Acute (7) Acidosis, metabolic ICD Codes: E87.2 - Acidosis Plan: Start on sodium bicarbonate tablets, this is due to acute renal failure (8) Hydronephrosis ICD Codes: N13.30 - Unspecified hydronephrosis Plan: Moderate to severe hydronephrosis left kidney due to an approximate 4-5 mm distal ureteral stone Minimal UOP overnight. Banerjee catheter ordered Spontaneously dense mass in the bladder of uncertain etiology and cystoscopy is suggested to further evaluate. Urology consulted NPO after MN Problem Qualifiers (1) Acute renal failure: Qualified Codes: N17.9 - Acute kidney failure, unspecified (2) Coronary artery disease: Qualified Codes: I25.10 - Atherosclerotic heart disease of [place] coronary artery without angina pectoris Joseph Joy MD May 28, 2017 13:44
[2017-05-28] MEDS: ATORVASTATIN 40 MG TAB PO SCH (21:15)
[2017-05-29] VITALS (8 sets, daily range): BP systolic 108–134; BP diastolic 61–70; PULSE 71–87; RESP 16–18; TEMP 96.3–98.4; O2SAT 93–97
[2017-05-29] MEDS: ISOSORBIDE MONONITRATE 60 MG TAB PO SCH (06:13)
[2017-05-29] MEDS: SODIUM BICARBONATE 325 MG TAB PO SCH ×3 (06:13→21:28)
[2017-05-29 06:34] LABS: BICARBONATE 28.6 MEQ/L (21.0-32.0); CALCIUM 9.3 MG/DL (8.5-10.1); CREATININE 1.43 MG/DL (0.60-1.30)
--- NOTE | 2017-05-29 07:58 | PD.CARD.PN ---
Subjective Subjective Remarks No angina present. Creatinine dramatically improved Objective Medications Current Medications Medications (Trade) Dose Ordered Sig/Rebekah Route Start Time Stop Time Status Last Admin (NS Flush) 2 ml UNSCH PRN IVF 05/20/17 19:30 05/28/17 08:54 (Heparin Inj) 5,000 units Q12HR SQ 05/20/17 21:00 05/28/17 21:14 (Aspirin Chew) 81 mg DAILY CHEW 05/21/17 09:00 05/28/17 08:50 (Lipitor) 80 mg HS PO 05/21/17 21:00 05/28/17 21:15 (Coreg) 25 mg BID PO 05/21/17 09:00 05/28/17 21:18 (Vitamin D3) 2,000 units DAILY PO 05/21/17 09:00 05/28/17 08:50 (Folate) 1 mg DAILY PO 05/21/17 09:00 05/28/17 08:51 (Sodium Bicarbonate) 650 mg Q8HR PO 05/21/17 14:00 05/29/17 06:13 (Imdur) 120 mg DAILY@07 PO 05/23/17 07:00 05/29/17 06:13 (NS Flush) UNSCH PRN IV FLUSH 05/22/17 12:00 (Heparin Inj) UNSCH PRN IV FLUSH 05/22/17 12:00 Ceftriaxone Sodium 1000 mg/ Sodium Chloride 100 ml @ 200 mls/hr Q24H IV 05/25/17 12:00 05/28/17 12:33 Vital Signs / I&O Vital Signs Date Time Temp Pulse Resp B/P (MAP) Pulse Ox O2 Delivery O2 Flow Rate FiO2 05/29/17 04:00 98.4 85 16 132/70 (90) 96 05/29/17 00:39 96 21 05/29/17 00:30 77 05/28/17 23:29 87 05/28/17 20:30 96 Room Air 05/28/17 18:06 96 05/28/17 17:30 76 05/28/17 16:23 81 05/28/17 15:22 98.4 74 19 121/62 (81) 96 124/52 (76) 05/28/17 15:00 88 05/28/17 14:13 81 05/28/17 13:00 78 05/28/17 12:03 85 05/28/17 11:46 98.3 79 16 100/58 (72) 96 126/55 (78) 05/28/17 11:00 77 05/28/17 10:05 87 05/28/17 09:13 93 21 05/28/17 09:03 101 05/28/17 08:10 80 I/O 05/28/17 05/28/17 05/28/17 05/29/17 05/29/17 05/29/17 07:00 15:00 23:00 07:00 15:00 23:00 Intake Total 1200 ml 1440 ml 500 ml Output Total 4150 ml 4195 ml 2150 ml Balance -2950 ml -2755 ml -1650 ml Intake Oral 1200 ml 1440 ml 500 ml Output Urine Total 25 ml 150 ml 700 ml Stool Total 0 ml Drainage Total 4125 ml 4045 ml 1450 ml Laboratory Laboratory Tests Test 05/29/17 05:05 Blood Urea Nitrogen 20 MG/DL Creatinine 1.43 MG/DL Random Glucose 93 MG/DL Calcium Level 9.3 MG/DL Sodium Level 141 MEQ/L Potassium Level 4.1 MEQ/L Chloride Level 106 MEQ/L Carbon Dioxide Level 28.6 MEQ/L Anion Gap 6 MEQ/L Estimat Glomerular Filtration Rate 48 ML/MIN Assessment and Plan Problem List: (1) Cardiomyopathy ICD Codes: I42.9 - Cardiomyopathy, unspecified (2) Coronary artery disease ICD Codes: I25.10 - Atherosclerotic heart disease of [place] coronary artery without angina pectoris Status: Acute Plan: Stable CV. Continue present regimen. For ureteral stenting today (3) CKD (chronic kidney disease) stage 3, GFR 30-59 ml/min ICD Codes: N18.3 - Chronic kidney disease, stage 3 (moderate) (4) Acute renal failure ICD Codes: N17.9 - Acute kidney failure, unspecified Status: Acute (5) Elevated troponin ICD Codes: R74.8 - Abnormal levels of other serum enzymes Status: Acute Problem Qualifiers (1) Coronary artery disease: Qualified Codes: I25.10 - Atherosclerotic heart disease of [place] coronary artery without angina pectoris (2) Acute renal failure: Qualified Codes: N17.9 - Acute kidney failure, unspecified Dante De Leon MD May 29, 2017 07:58
--- NOTE | 2017-05-29 09:18 | HHI.PR ---
Subjective Patient symptoms today Creatinine significantly improved. Maintain his nephrostomy tube for now. Patient will eventually need treatment for this left distal ureteral stone which may be completed as an outpatient. Patient would benefit from stent placement however this has been difficult and may require ureteroscopy in order to adequately navigate the ureter to treat the stone and place a stent. Objective Vital Signs Vital Signs Date Time Temp Pulse Resp B/P (MAP) Pulse Ox O2 Delivery O2 Flow Rate FiO2 05/29/17 08:00 97.3 87 18 134/69 (90) 97 05/29/17 04:00 98.4 85 16 132/70 (90) 96 05/29/17 00:39 96 21 05/29/17 00:30 77 05/28/17 23:29 87 05/28/17 20:30 96 Room Air 05/28/17 18:06 96 05/28/17 17:30 76 05/28/17 16:23 81 05/28/17 15:22 98.4 74 19 121/62 (81) 96 124/52 (76) 05/28/17 15:00 88 05/28/17 14:13 81 05/28/17 13:00 78 05/28/17 12:03 85 05/28/17 11:46 98.3 79 16 100/58 (72) 96 126/55 (78) 05/28/17 11:00 77 05/28/17 10:05 87 Intake & Output 05/29/17 05/29/17 07:00 19:00 Intake Total 500 ml Output Total 2575 ml Balance -2075 ml Intake Oral 500 ml Output Urine Total 700 ml Drainage Total 1875 ml Result Diagram: 05/26/17 0423 05/29/17 0505 Medications and IVs Current Medications Medications (Trade) Dose Ordered Sig/Rebekah Route Start Time Stop Time Status Last Admin (NS Flush) 2 ml UNSCH PRN IVF 05/20/17 19:30 05/28/17 08:54 (Heparin Inj) 5,000 units Q12HR SQ 05/20/17 21:00 05/28/17 21:14 (Aspirin Chew) 81 mg DAILY CHEW 05/21/17 09:00 05/28/17 08:50 (Lipitor) 80 mg HS PO 05/21/17 21:00 05/28/17 21:15 (Coreg) 25 mg BID PO 05/21/17 09:00 05/28/17 21:18 (Vitamin D3) 2,000 units DAILY PO 05/21/17 09:00 05/28/17 08:50 (Folate) 1 mg DAILY PO 05/21/17 09:00 05/28/17 08:51 (Sodium Bicarbonate) 650 mg Q8HR PO 05/21/17 14:00 05/29/17 06:13 (Imdur) 120 mg DAILY@07 PO 05/23/17 07:00 05/29/17 06:13 (NS Flush) UNSCH PRN IV FLUSH 05/22/17 12:00 (Heparin Inj) UNSCH PRN IV FLUSH 05/22/17 12:00 Ceftriaxone Sodium 1000 mg/ Sodium Chloride 100 ml @ 200 mls/hr Q24H IV 05/25/17 12:00 05/28/17 12:33 Assessment and Plan Problem List: (1) Acute renal failure ICD Code: N17.9 - Acute kidney failure, unspecified Status: Acute (2) Nephrolithiasis ICD Code: N20.0 - Calculus of kidney Assessment and Plan Continue to monitor creatinine. Expect continued improvement. Maintain drainage with nephrostomy tube. Banerjee catheter may be removed at any time. Patient to follow-up with urology as outpatient for treatment of this stone. Problem Qualifiers (1) Acute renal failure: Qualified Codes: N17.9 - Acute kidney failure, unspecified Mehdi Harry MD May 29, 2017 09:18
--- NOTE | 2017-05-29 10:11 | HHI.PR ---
Subjective Remarks Pt feeling well today He has had good output from the nephrostomy tube, about 1900 overnight and currently has 600mL this morning bu 9:30AM He is tolerating oral intake No abdominal discomfort Afebrile Objective Vitals Vital Signs Date Time Temp Pulse Resp B/P (MAP) Pulse Ox O2 Delivery O2 Flow Rate FiO2 05/29/17 08:00 97.3 87 18 134/69 (90) 97 05/29/17 04:00 98.4 85 16 132/70 (90) 96 05/29/17 00:39 96 21 05/29/17 00:30 77 05/28/17 23:29 87 05/28/17 20:30 96 Room Air 05/28/17 18:06 96 05/28/17 17:30 76 05/28/17 16:23 81 05/28/17 15:22 98.4 74 19 121/62 (81) 96 124/52 (76) 05/28/17 15:00 88 05/28/17 14:13 81 05/28/17 13:00 78 05/28/17 12:03 85 05/28/17 11:46 98.3 79 16 100/58 (72) 96 126/55 (78) 05/28/17 11:00 77 05/28/17 10:05 87 Result Diagram: 05/26/17 0423 05/29/17 0505 Other Results Laboratory Tests Test 05/27/17 16:19 05/28/17 03:57 05/29/17 05:05 Blood Urea Nitrogen 76 MG/DL 51 MG/DL 20 MG/DL Creatinine 11.53 MG/DL 5.19 MG/DL 1.43 MG/DL Random Glucose 127 MG/DL 112 MG/DL 93 MG/DL Calcium Level 8.6 MG/DL 8.9 MG/DL 9.3 MG/DL Sodium Level 135 MEQ/L 139 MEQ/L 141 MEQ/L Potassium Level 5.0 MEQ/L 4.6 MEQ/L 4.1 MEQ/L Chloride Level 96 MEQ/L 103 MEQ/L 106 MEQ/L Carbon Dioxide Level 25.7 MEQ/L 26.4 MEQ/L 28.6 MEQ/L Anion Gap 13 MEQ/L 10 MEQ/L 6 MEQ/L Estimat Glomerular Filtration Rate 4 ML/MIN 11 ML/MIN 48 ML/MIN Phosphorus Level 4.0 MG/DL Imaging Last Impressions Nephrostomy 05/27/17 0000 Signed Impressions: Service Date/Time: Saturday, May 27, 2017 11:58 - CONCLUSION: Uncomplicated nephrostomy tube placement as above. Delmar Su MD Abdomen/Pelvis CT 05/25/17 0000 Signed Impressions: Service Date/Time: Thursday, May 25, 2017 09:57 - CONCLUSION: 1. Moderate to severe hydronephrosis left kidney due to an approximate 4-5 mm distal ureteral stone. 2. Cholelithiasis. 3. Spontaneously dense mass in the bladder of uncertain etiology and cystoscopy is suggested to further evaluate. Alejandra Hernández MD Catheter Placement X-Ray 05/22/17 0000 Signed Impressions: Service Date/Time: May 12:49 - CONCLUSION: Uncomplicated line placement as above. Delmar Su MD Abdomen Ultrasound 05/21/17 0000 Signed Impressions: Service Date/Time: Sunday, May 21, 2017 08:09 - CONCLUSION: 1. There is a solitary left kidney with mild distention of the left renal collecting system without definite hydronephrosis. Etiology for distention is uncertain. 2. Cholelithiasis. Diaz Yadav MD Chest X-Ray 05/20/171917 Signed Impressions: Service Date/Time: Saturday, May 20, 2017 19:37 - CONCLUSION: Cardiomegaly. Clear lungs. Stefan Davis Jr., MD Last Impressions Abdomen Ultrasound 05/21/17 0000 Signed Impressions: Service Date/Time: Sunday, May 21, 2017 08:09 - CONCLUSION: 1. There is a solitary left kidney with mild distention of the left renal collecting system without definite hydronephrosis. Etiology for distention is uncertain. 2. Cholelithiasis. Diaz Yadav MD Chest X-Ray 05/20/171917 Signed Impressions: Service Date/Time: Saturday, May 20, 2017 19:37 - CONCLUSION: Cardiomegaly. Clear lungs. Stefan Davis Jr., MD Objective Remarks General: NAD, AAOx3 Chest: CTA bilaterally Cardiac: Regular Abd: +BS, soft, protuberant, nontender : Lopes cath in place with about 25cc of blood tinged urine in Lopes bag and Left nephrostomy tube in place with about 600mL of bloody urine in the bag. Ext: No edema Procedures 05/22/17 vascath placed by IR Left Nephrostomy tube placed by IR on 05/27/17 A/P Problem List: (1) Acute renal failure ICD Codes: N17.9 - Acute kidney failure, unspecified Status: Acute Plan: HILARIA, requiring hemodialysis Ureteral obstruction, left ureter stone with severe hydronephrosis - Pt was [place] [facility] [place] with complaints of N/V and chest pain - Labs at admission with noted Cr 13.0 and pt started on HD per Nephrology () - US (05/21) --> There is a solitary left kidney with mild distention of the left renal collecting system without definite hydronephrosis. Etiology for distention is uncertain. - Pt s/p cysto with fulguration of bleeding vessel in bladder but unable to pass wire/stent into left ureter due to tortuosity. - CT Abd/pelvis (05/25) --> Moderate to severe hydronephrosis left kidney due to an approximate 4-5 mm distal ureteral stone. Spontaneously dense mass in the bladder of uncertain etiology and cystoscopy is suggested to further evaluate. - Left nephrostomy tube with IR on 05/27 and pt has had good urine output with about 11,000mL recorded out since placement - Creatinine is down to 1.48 from 16 today - Progress notes from Urology today report that they want to continue drainage with nephrostomy tube - Will discuss with Urology when they recommend IR to place internal stent - Lopes catheter to be removed - Urology recommending outpt follow-up for treatment of the stone. - PT - DVT prophylaxis (2) Coronary artery disease ICD Codes: I25.10 - Atherosclerotic heart disease of [place] coronary artery without angina pectoris Status: Acute Plan: - Comgmt with Cardiology - h/o CABG - Pt has been chest pain free since starting Imdur - ASA, Coreg, Lipitor - No intervention planned at this time. Previously discussed with Dr Crawford/ Moises (3) BPH (benign prostatic hyperplasia) ICD Codes: N40.0 - Benign prostatic hyperplasia without lower urinary tract symptoms Status: Chronic (4) Hematuria ICD Codes: R31.9 - Hematuria, unspecified Status: Acute Plan: -See above. - Related to stone Assessment and Plan Patient examined. Assessment and plan formulated with Carey Jiménez PA-C. I agree with the above. hilaria due to obstruction of left ureter. nephrostomy tube. awaiting internalization of stent d/c lopes and vascath. Problem Qualifiers (1) Acute renal failure: Qualified Codes: N17.9 - Acute kidney failure, unspecified (2) Coronary artery disease: Qualified Codes: I25.10 - Atherosclerotic heart disease of [place] coronary artery without angina pectoris (3) BPH (benign prostatic hyperplasia): Qualified Codes: N40.0 - Benign prostatic hyperplasia without lower urinary tract symptoms Carey Jiménez May 29, 2017 10:11 Kevan Woodard MD May 29, 2017 13:28
[2017-05-29] MEDS: CARVEDILOL 12.5 MG TAB PO SCH ×2 (10:14→21:28)
[2017-05-29] MEDS: FOLIC ACID 1 MG TAB PO SCH (10:14)
[2017-05-29] MEDS: ASPIRIN 81 MG CHEW TAB CHEW SCH (10:14)
[2017-05-29] MEDS: CHOLECALCIFEROL (VIT D3) 1000 UNIT TAB PO SCH (10:14)
[2017-05-29] MEDS: HEPARIN SODIUM - SQ 10,000 UNITS/ML VIAL SQ SCH ×2 (10:15→21:29)
[2017-05-29] MEDS: cefTRIAXone INJ 1,000 MG in SODIUM CHLORIDE 0.9% INJ 100 ML IV SCH (12:55)
--- NOTE | 2017-05-29 14:08 | HHI.NPPN ---
Subjective History of Present Illness Patient is a 76-year-old male with renal failure, having nausea and vomiting Additional Remarks Patient awake feels well Review of Systems General Constitutional: Fatigue Objective Data Data 05/29/17 05/30/17 19:00 07:00 Output Total 1250 ml Balance -1250 ml Drainage Total 1250 ml Vital Signs Date Time Temp Pulse Resp B/P (MAP) Pulse Ox O2 Delivery O2 Flow Rate FiO2 05/29/17 12:00 97.1 71 18 108/62 (77) 93 05/29/17 08:00 97.3 87 18 134/69 (90) 97 05/29/17 04:00 98.4 85 16 132/70 (90) 96 05/29/17 00:39 96 21 05/29/17 00:30 77 05/28/17 23:29 87 05/28/17 20:30 96 Room Air 05/28/17 18:06 96 05/28/17 17:30 76 05/28/17 16:23 81 05/28/17 15:22 98.4 74 19 121/62 (81) 96 124/52 (76) 05/28/17 15:00 88 05/28/17 14:13 81 -: 05/26/17 0423 05/29/17 0505 Physical Exam General Appearance: Well Developed, Well Nourished Neck Neck Exam: Neck Supple Pulmonary Resp Exam: Decreased Bases Cardiology CV Exam: Regular, Normal Sinus Rhythm Gastrointestinal/Abdomen GI Exam: Soft, Non-Tender, Bowel Sounds Present Extremeties Extremities Exam: No Edema Neurologic Neuro Exam: Alert Assessment/Plan Problem List: (1) Acute renal failure ICD Codes: N17.9 - Acute kidney failure, unspecified Status: Acute Plan: Patient has recovery from ARF Cr 1.4 nephrology to follow as needed (2) Coronary artery disease ICD Codes: I25.10 - Atherosclerotic heart disease of [place] coronary artery without angina pectoris Status: Acute Plan: As above have severe coronary artery disease (3) CKD (chronic kidney disease) stage 3, GFR 30-59 ml/min ICD Codes: N18.3 - Chronic kidney disease, stage 3 (moderate) Plan: Per records he had CK D (4) Gallstone ICD Codes: K80.20 - Calculus of gallbladder without cholecystitis without obstruction Plan: We'll continue to monitor (5) Dehydration ICD Codes: E86.0 - Dehydration Status: Acute (6) Elevated troponin ICD Codes: R74.8 - Abnormal levels of other serum enzymes Status: Acute (7) Acidosis, metabolic ICD Codes: E87.2 - Acidosis Plan: Start on sodium bicarbonate tablets, this is due to acute renal failure (8) Hydronephrosis ICD Codes: N13.30 - Unspecified hydronephrosis Plan: Moderate to severe hydronephrosis left kidney due to an approximate 4-5 mm distal ureteral stone Minimal UOP overnight. Banerjee catheter ordered Spontaneously dense mass in the bladder of uncertain etiology and cystoscopy is suggested to further evaluate. Urology consulted NPO after MN Problem Qualifiers (1) Acute renal failure: Qualified Codes: N17.9 - Acute kidney failure, unspecified (2) Coronary artery disease: Qualified Codes: I25.10 - Atherosclerotic heart disease of [place] coronary artery without angina pectoris Joseph Joy MD May 29, 2017 14:08
[2017-05-29] MEDS: ATORVASTATIN 40 MG TAB PO SCH (21:28)
[2017-05-30 00:47] VITALS: BP 120/70; PULSE 77; RESP 16; TEMP 96.8; O2SAT 95
[2017-05-30 04:20] VITALS: BP 96/60; PULSE 73; RESP 16; TEMP 97.2; O2SAT 99
[2017-05-30 06:25] LABS: AUTOMATED NEUTROPHIL # 7.4 TH/MM3 (1.8-7.7); BASOPHIL # 0.1 TH/MM3 (0-0.2); BASOPHIL % 0.5 % (0.0-2.0); EOSINOPHIL # 0.3 TH/MM3 (0-0.4); HEMATOCRIT 30.2 % (39.0-51.0); HEMOGLOBIN 10.6 GM/DL (13.0-17.0); MEAN CELL VOLUME 90.3 FL (80.0-100.0); MEAN CORPUSCULAR HEMOGLOBIN 31.5 PG (27.0-34.0); MEAN CORPUSCULAR HGB CONC 34.9 % (32.0-36.0); MEAN PLATELET VOLUME 8.6 FL (7.0-11.0); MONO % 7.8 % (0.0-8.0); MONOCYTE # 0.8 TH/MM3 (0-0.9); NEUT % 69.7 % (16.0-70.0); PLATELET COUNT 244 TH/MM3 (150-450); RED BLOOD COUNT 3.35 MIL/MM3 (4.50-5.90); RED CELL DISTRIBUTION WIDTH 13.2 % (11.6-17.2); WHITE BLOOD COUNT 10.6 TH/MM3 (4.0-11.0)
[2017-05-30 06:30] LABS: BICARBONATE 26.5 MEQ/L (21.0-32.0); CALCIUM 9.3 MG/DL (8.5-10.1); CREATININE 1.13 MG/DL (0.60-1.30); MAGNESIUM 1.9 MG/DL (1.5-2.5)
[2017-05-30] MEDS: SODIUM BICARBONATE 325 MG TAB PO SCH ×2 (06:36→14:00)
[2017-05-30] MEDS: ISOSORBIDE MONONITRATE 60 MG TAB PO SCH (06:37)
[2017-05-30 08:00] VITALS: BP 145/66; PULSE 75; RESP 16; TEMP 97.1; O2SAT 98
[2017-05-30] MEDS: FOLIC ACID 1 MG TAB PO SCH (10:02)
[2017-05-30] MEDS: HEPARIN SODIUM - SQ 10,000 UNITS/ML VIAL SQ SCH (10:02)
[2017-05-30] MEDS: ASPIRIN 81 MG CHEW TAB CHEW SCH (10:02)
[2017-05-30] MEDS: CHOLECALCIFEROL (VIT D3) 1000 UNIT TAB PO SCH (10:02)
[2017-05-30] MEDS: CARVEDILOL 12.5 MG TAB PO SCH (10:02)
--- NOTE | 2017-05-30 10:45 | HHI.PR ---
Subjective Remarks Pt feeling well today and is anxious to figure out what the plan is for his nephrostomy tube Objective Vitals Vital Signs Date Time Temp Pulse Resp B/P (MAP) Pulse Ox O2 Delivery O2 Flow Rate FiO2 05/30/17 08:00 97.1 75 16 145/66 (92) 98 05/30/17 04:20 97.2 73 16 96/60 (72) 99 05/30/17 00:47 96.8 77 16 120/70 (87) 95 05/29/17 20:29 83 05/29/17 19:31 96.3 83 16 123/61 (81) 95 05/29/17 16:00 98.0 78 18 132/69 (90) 95 05/29/17 12:00 97.1 71 18 108/62 (77) 93 05/30/17 05/30/17 05/31/17 15:00 23:00 07:00 Output Total 675 ml Balance -675 ml Drainage Total 675 ml Result Diagram: 05/30/17 0512 05/30/17 0512 Other Results Laboratory Tests Test 05/29/17 05:05 05/30/17 05:12 Blood Urea Nitrogen 20 MG/DL 13 MG/DL Creatinine 1.43 MG/DL 1.13 MG/DL Random Glucose 93 MG/DL 98 MG/DL Calcium Level 9.3 MG/DL 9.3 MG/DL Sodium Level 141 MEQ/L 138 MEQ/L Potassium Level 4.1 MEQ/L 3.9 MEQ/L Chloride Level 106 MEQ/L 104 MEQ/L Carbon Dioxide Level 28.6 MEQ/L 26.5 MEQ/L Anion Gap 6 MEQ/L 8 MEQ/L Estimat Glomerular Filtration Rate 48 ML/MIN 63 ML/MIN White Blood Count 10.6 TH/MM3 Red Blood Count 3.35 MIL/MM3 Hemoglobin 10.6 GM/DL Hematocrit 30.2 % Mean Corpuscular Volume 90.3 FL Mean Corpuscular Hemoglobin 31.5 PG Mean Corpuscular Hemoglobin Concent 34.9 % Red Cell Distribution Width 13.2 % Platelet Count 244 TH/MM3 Mean Platelet Volume 8.6 FL Neutrophils (%) (Auto) 69.7 % Lymphocytes (%) (Auto) 19.0 % Monocytes (%) (Auto) 7.8 % Eosinophils (%) (Auto) 3.0 % Basophils (%) (Auto) 0.5 % Neutrophils # (Auto) 7.4 TH/MM3 Lymphocytes # (Auto) 2.0 TH/MM3 Monocytes # (Auto) 0.8 TH/MM3 Eosinophils # (Auto) 0.3 TH/MM3 Basophils # (Auto) 0.1 TH/MM3 CBC Comment DIFF FINAL Differential Comment Magnesium Level 1.9 MG/DL Imaging Last Impressions Nephrostomy 05/27/17 0000 Signed Impressions: Service Date/Time: Saturday, May 27, 2017 11:58 - CONCLUSION: Uncomplicated nephrostomy tube placement as above. Delmar Su MD Abdomen/Pelvis CT 05/25/17 0000 Signed Impressions: Service Date/Time: Thursday, May 25, 2017 09:57 - CONCLUSION: 1. Moderate to severe hydronephrosis left kidney due to an approximate 4-5 mm distal ureteral stone. 2. Cholelithiasis. 3. Spontaneously dense mass in the bladder of uncertain etiology and cystoscopy is suggested to further evaluate. Alejandra Hernández MD Catheter Placement X-Ray 05/22/17 0000 Signed Impressions: Service Date/Time: May 12:49 - CONCLUSION: Uncomplicated line placement as above. Delmar Su MD Abdomen Ultrasound 05/21/17 0000 Signed Impressions: Service Date/Time: Sunday, May 21, 2017 08:09 - CONCLUSION: 1. There is a solitary left kidney with mild distention of the left renal collecting system without definite hydronephrosis. Etiology for distention is uncertain. 2. Cholelithiasis. Diaz Yadav MD Chest X-Ray 05/20/171917 Signed Impressions: Service Date/Time: Saturday, May 20, 2017 19:37 - CONCLUSION: Cardiomegaly. Clear lungs. Stefan Davis Jr., MD Last Impressions Abdomen Ultrasound 05/21/17 0000 Signed Impressions: Service Date/Time: Sunday, May 21, 2017 08:09 - CONCLUSION: 1. There is a solitary left kidney with mild distention of the left renal collecting system without definite hydronephrosis. Etiology for distention is uncertain. 2. Cholelithiasis. Diaz Yadav MD Chest X-Ray 05/20/171917 Signed Impressions: Service Date/Time: Saturday, May 20, 2017 19:37 - CONCLUSION: Cardiomegaly. Clear lungs. Stefan Davis Jr., MD Objective Remarks General: NAD, AAOx3 Chest: CTA bilaterally Cardiac: Regular Abd: +BS, soft, protuberant, nontender : Banerjee cath in place with about 25cc of blood tinged urine in Banerjee bag and Left nephrostomy tube in place with about 600mL of bloody urine in the bag. Ext: No edema Procedures 05/22/17 vascath placed by IR Left Nephrostomy tube placed by IR on 05/27/17 A/P Problem List: (1) Acute renal failure ICD Codes: N17.9 - Acute kidney failure, unspecified Status: Acute Plan: HILARIA, requiring hemodialysis Ureteral obstruction, left ureter stone with severe hydronephrosis - [place] [facility] [place] with complaints of N/V and chest pain - Labs at admission with noted Cr 13.0 and pt started on HD per Nephrology () - US (05/21) --> There is a solitary left kidney with mild distention of the left renal collecting system without definite hydronephrosis. Etiology for distention is uncertain. - Pt s/p cysto with fulguration of bleeding vessel in bladder but unable to pass wire/stent into left ureter due to tortuosity. - CT Abd/pelvis (05/25) --> Moderate to severe hydronephrosis left kidney due to an approximate 4-5 mm distal ureteral stone. Spontaneously dense mass in the bladder of uncertain etiology and cystoscopy is suggested to further evaluate. - Left nephrostomy tube with IR on 05/27 and pt has had good urine output with about 11,000mL recorded out since placement - Creatinine is down to 1.48 from 16 today - Progress notes from Urology report on 05/29 noted that they want to continue drainage with nephrostomy tube - Nursing staff reports that they discussed with Dr. Harry on 05/29 about having the nephrostomy tube removed and internalized and he was reportedly under the impression that this would not be possible but IRs report from the procedure noted attempted internalization in 24-48 hours. - I have a call out to Dr. Su who placed the nephrostomy for clarification today. - Banerjee catheter removed on 05/29 - Urology recommending outpt follow-up for treatment of the stone. - PT - DVT prophylaxis (2) Coronary artery disease ICD Codes: I25.10 - Atherosclerotic heart disease of [place] coronary artery without angina pectoris Status: Acute Plan: - Comgmt with Cardiology - h/o CABG - Pt has been chest pain free since starting Imdur - ASA, Coreg, Lipitor - No intervention planned at this time. Previously discussed with Dr Crawford/ Moises (3) BPH (benign prostatic hyperplasia) ICD Codes: N40.0 - Benign prostatic hyperplasia without lower urinary tract symptoms Status: Chronic (4) Hematuria ICD Codes: R31.9 - Hematuria, unspecified Status: Acute Plan: -See above. - Related to stone Problem Qualifiers (1) Acute renal failure: Qualified Codes: N17.9 - Acute kidney failure, unspecified (2) Coronary artery disease: Qualified Codes: I25.10 - Atherosclerotic heart disease of [place] coronary artery without angina pectoris (3) BPH (benign prostatic hyperplasia): Qualified Codes: N40.0 - Benign prostatic hyperplasia without lower urinary tract symptoms Carey Jiménez May 30, 2017 10:45
[2017-05-30 11:41] VITALS: O2SAT 94
[2017-05-30 12:00] VITALS: BP 120/58; PULSE 68; RESP 16; TEMP 97; O2SAT 98
[2017-05-30] MEDS: cefTRIAXone INJ 1,000 MG in SODIUM CHLORIDE 0.9% INJ 100 ML IV SCH (12:00)
--- NOTE | 2017-05-30 13:37 | HHI.FF ---
Face to Face Verification Diagnosis: (1) Nephrolithiasis (2) Hydronephrosis (3) Hematuria (4) Dehydration Home Health Nursing Order: Wound care and dressing changes Nursing assessment with vital signs Instructions: Pt has left nephrostomy, please instruct pt on care and monitoring output I have seen patient Isaias Pierce on 05/30/17. My clinical findings support the need for the requested home health care services because: Deconditioned w/ increased weakness I certify that my clinical findings support that this patient is homebound because: Post-op weakness Carey Jiménez May 30, 2017 13:37
[2017-05-30] MEDS ORDERED: ISOS60TA PO (15:09)
--- NOTE | 2017-05-30 15:13 | HHI.DS ---
Discharge Summary Admission Date May 20, 2017 at 20:24 Discharge Date: May 30, 2017 Admitting Diagnosis acute renal failure, dehydration, elevated troponin, chest pain (1) Acute renal failure Diagnosis: Principal ICD Codes: N17.9 - Acute kidney failure, unspecified Status: Acute (2) Coronary artery disease Diagnosis: Secondary ICD Codes: I25.10 - Atherosclerotic heart disease of [place] coronary artery without angina pectoris Status: Acute (3) BPH (benign prostatic hyperplasia) Diagnosis: Secondary ICD Codes: N40.0 - Benign prostatic hyperplasia without lower urinary tract symptoms Status: Chronic (4) Hematuria Diagnosis: Secondary ICD Codes: R31.9 - Hematuria, unspecified Status: Acute Consultants Dr. Joseph Joy - Nephrology Dr. Mehdi Harry - Urology Dr. Gee Crawford - Cardiology Procedures 05/22/17 vascath placed by IR Left Nephrostomy tube placed by IR on 05/27/17 CBC/BMP: 05/30/17 0512 05/30/17 0512 Significant Findings Laboratory Tests Test 05/27/17 16:19 05/28/17 03:57 05/29/17 05:05 05/30/17 05:12 Blood Urea Nitrogen 76 MG/DL (7-18) 51 MG/DL (7-18) 20 MG/DL (7-18) Creatinine 11.53 MG/DL (0.60-1.30) 5.19 MG/DL (0.60-1.30) 1.43 MG/DL (0.60-1.30) Random Glucose 127 MG/DL (74-106) 112 MG/DL (74-106) Sodium Level 135 MEQ/L (136-145) Chloride Level 96 MEQ/L (98-107) Estimat Glomerular Filtration Rate 4 ML/MIN (>89) 11 ML/MIN (>89) 48 ML/MIN (>89) 63 ML/MIN (>89) Red Blood Count 3.35 MIL/MM3 (4.50-5.90) Hemoglobin 10.6 GM/DL (13.0-17.0) Hematocrit 30.2 % (39.0-51.0) Imaging Last Impressions Nephrostomy 05/27/17 0000 Signed Impressions: Service Date/Time: Saturday, May 27, 2017 11:58 - CONCLUSION: Uncomplicated nephrostomy tube placement as above. Delmar Su MD Abdomen/Pelvis CT 05/25/17 0000 Signed Impressions: Service Date/Time: Thursday, May 25, 2017 09:57 - CONCLUSION: 1. Moderate to severe hydronephrosis left kidney due to an approximate 4-5 mm distal ureteral stone. 2. Cholelithiasis. 3. Spontaneously dense mass in the bladder of uncertain etiology and cystoscopy is suggested to further evaluate. Alejandra Hernández MD Catheter Placement X-Ray 05/22/17 0000 Signed Impressions: Service Date/Time: May 12:49 - CONCLUSION: Uncomplicated line placement as above. Delmar Su MD Abdomen Ultrasound 05/21/17 0000 Signed Impressions: Service Date/Time: Sunday, May 21, 2017 08:09 - CONCLUSION: 1. There is a solitary left kidney with mild distention of the left renal collecting system without definite hydronephrosis. Etiology for distention is uncertain. 2. Cholelithiasis. Diaz Yadav MD Chest X-Ray 05/20/171917 Signed Impressions: Service Date/Time: Saturday, May 20, 2017 19:37 - CONCLUSION: Cardiomegaly. Clear lungs. Stefan Davis Jr., MD PE at Discharge General: NAD, AAOx3 Chest: CTA bilaterally Cardiac: Regular Abd: +BS, soft, protuberant, nontender : Banerjee cath in place with about 25cc of blood tinged urine in Banerjee bag and Left nephrostomy tube in place with about 600mL of bloody urine in the bag. Ext: No edema Hospital Course HILARIA, requiring hemodialysis Ureteral obstruction, left ureter stone with severe hydronephrosis Hematuria - Pt was admitted to [facility] [place] with complaints of N/V and chest pain. Labs at admission with noted Cr 13.0 and pt started on HD per Nephrology (05/23) . US (05/21) noted a solitary left kidney with mild distention of the left renal collecting system without definite hydronephrosis. Etiology for distention is uncertain. Pt underwent cysto with fulguration of bleeding vessel in bladder but unable to pass wire/stent into left ureter due to tortuosity. CT Abd/ pelvis (05/25) noted moderate to severe hydronephrosis left kidney due to an approximate 4-5 mm distal ureteral stone. Spontaneously dense mass in the bladder of uncertain etiology and cystoscopy is suggested to further evaluate. Left nephrostomy tube with IR on 05/27 and pt has had good urine output with about 11,000mL recorded out since placement. Creatinine is down to 1.13 on the day of discharge from on 05/26. Progress notes from Urology report on 05/29 noted that they want to continue drainage with nephrostomy tube. Nursing staff reports that they discussed with Dr. Harry on 05/29 about having the nephrostomy tube removed and internalized and he was reportedly under the impression that this would not be possible but IRs report from the procedure noted attempted internalization in 24-48 hours. I spoke with Dr. Su who placed the nephrostomy and he would be willing to re-evaluate for internalization but since the pt had eaten this morning he would not be able to do General Anesthesia. He offered the pt Fentanyl and Ativan for a twilight anesthesia but the pt does not want to do and would prefer to be sedated. Pt is wanting to discharge to home today with the nephrostomy tube in place and we have made an appt for the pt to followup with [facility] on Friday06/02/17 @ 9:30AM to re-evaluate and attempt internalization of the stent. Pt will need to followup with Dr. Harry in 1 week Pt will need to followup with Dr. Joy in 2 weeks Pt will need to followup with Dr. Carolynn Akins in 1 week Coronary artery disease Pt had some reported chest pain at admission. He has hx of CABG. Cardiology was consulted. Imdur was increased from 30mg to 120mg po daily and pt has been chest pain free since then. Pt was continued on ASA, Coreg, Lipitor. No intervention planned at this time. His ARB was held at admission due to renal status and this will be held at discharge as well. Previously discussed with Dr Crawford/Moises and pt will followup with Cardiology as an outpt in 2 weeks. Pt can discuss re-initiation of this medication upon followup with Cardiology Pt Condition on Discharge: Stable Discharge Disposition: Disch w/ Home Health Serv Discharge Instructions DIET: Follow Instructions for: Heart Healthy Diet Activities you can perform: Regular-No Restrictions Follow up Referrals: Appointment for Follow Up - 06/02/17 with [facility] Cardiology - 2 Weeks @ [facility] Cardiology with Dr. Crawford Nephrology - [address] Joy PCP Follow-up - [address] Carolynn Akins [facility]/ @ [facility]/ with [facility] Urology - 1 Week with Mehdi Harry MD New Medications: Isosorbide Mononitrate ER (Isosorbide Mononitrate ER) 60 Mg Tab 120 MG PO DAILY@07 for angina, #30 TAB Continued Medications: Aspirin (Aspirin) 81 Mg Chew 81 MG CHEW DAILY, TAB 0 Refills Atorvastatin (Atorvastatin) 80 Mg Tab 80 MG PO HS for Cholesterol Management, #30 TAB 0 Refills Carvedilol (Carvedilol) 25 Mg Tab 25 MG PO BID, #60 TAB 0 Refills Cholecalciferol (Vitamin D3) 2,000 Unit Cap 2000 UNITS PO DAILY for Nutritional Supplement, #1 BOTTLE 0 Refills Folic Acid (Folic Acid) 0.4 Mg Tab 400 MCG PO DAILY for Nutritional Supplement, TAB 0 Refills Nitroglycerin SL (Nitrostat SL) 0.4 Mg Subl 0.4 MG SL DIRECTED PRN for CHEST PAIN, #100 TAB.SL 0 Refills 1 tablet under the tongue as needed for chest pain. Repeat every 5 minutes for a total of 3 DOSES or call 911 if NO relief. Discontinued Medications: Isosorbide Mononitrate (Isosorbide Mononitrate) 20 Mg Tab 30 MG PO DAILY for Prevent Chest Pain, #60 TAB 0 Refills Take 2 doses 7 hours apart. Losartan (Losartan) 100 Mg Tab 100 MG PO DAILY for Blood Pressure Management, #30 TAB 0 Refills Carey Jiménez May 30, 2017 15:13 Kevan Woodard MD May 30, 2017 15:23
[2017-05-30 17:51] VITALS: O2SAT 98
== END 2017-05-30 18:00 | disposition home health service (06) | DRG 663 ==
LOC: PHED 18:40 → PHEDA 20:24 → PH3A 22:47 → HIME 05-22 12:00 → HCPC 05-25 15:50 → N06B 05-28 20:17
PROVIDERS: ADMIT Hospitalist; ATTEND Hospitalist
PROC: 05HM33Z Insertion of Infusion Device into Right Internal Jugular Vein, Percutaneous Approach (ICD-10-PCS; 2017-05-22)
PROC: 5A1D70Z Performance of Urinary Filtration, Intermittent, Less than 6 Hours Per Day (ICD-10-PCS; 2017-05-22)
PROC: BT1F1ZZ Fluoroscopy of Left Kidney, Ureter and Bladder using Low Osmolar Contrast (ICD-10-PCS; 2017-05-26)
PROC: 0TCB8ZZ Extirpation of Matter from Bladder, Via Natural or Artificial Opening Endoscopic (ICD-10-PCS; 2017-05-26)
PROC: 0W3R8ZZ Control Bleeding in Genitourinary Tract, Via Natural or Artificial Opening Endoscopic (ICD-10-PCS; principal; 2017-05-26 17:04)
PROC: 0T9130Z Drainage of Left Kidney with Drainage Device, Percutaneous Approach (ICD-10-PCS; 2017-05-27)
DX: N17.9 Acute kidney failure, unspecified (principal); E87.2 Acidosis; I42.9 Cardiomyopathy, unspecified; D69.6 Thrombocytopenia, unspecified; I25.82 Chronic total occlusion of coronary artery; E86.0 Dehydration; N13.2 Hydronephrosis with renal and ureteral calculous obstruction; I25.119 Atherosclerotic heart disease of native coronary artery with unspecified angina pectoris; N18.3 Chronic kidney disease, stage 3 (moderate); E78.5 Hyperlipidemia, unspecified; K80.20 Calculus of gallbladder without cholecystitis without obstruction; N32.89 Other specified disorders of bladder; N40.0 Benign prostatic hyperplasia without lower urinary tract symptoms; I08.0 Rheumatic disorders of both mitral and aortic valves; R31.9 Hematuria, unspecified; I12.9 Hypertensive chronic kidney disease with stage 1 through stage 4 chronic kidney disease, or unspecified chronic kidney disease; R11.2 Nausea with vomiting, unspecified; R74.8 Abnormal levels of other serum enzymes; Z95.1 Presence of aortocoronary bypass graft; Z85.528 Personal history of other malignant neoplasm of kidney; Z87.891 Personal history of nicotine dependence; Z90.5 Acquired absence of kidney
CPT/HCPCS: 36556; 50432; 71045; 74176; 76700; 76937; 77001; 80048; 80053; 80074; 82550; 83520; 83690; 83735; 84100; 84155; 84165; 84484; 85025; 85610; 85730; 86021; 86038; 86160; 90935; 93005; 96360; 96374; 99152; 99153; C1729; C1752; C1769; C1887; C2617; J0696; J1100; J1170; J1580; J1644; J1956; J2250; J2370; J2405; J2710; J3010; J7030; J7040; Q9967

== ENCOUNTER 2017-06-02 08:26 | Day surgery (SDC) | payer MEDICARE ==
[~2017-06-02] VITALS: Ht 170.2 cm; Wt 100.0 kg
[~2017-06-02 08:26] MED LIST changes: +ASPI-516 CHEW; -ASPI81TA82 PO; -ATOR80TA PO; +ATOR80TA45 PO; -CARV12.52 PO; +CARV25TA PO; +FOLI400T PO; -ISOS30TA3 PO; +ISOS60TA PO; -LOSA50TA PO; -MILK500C PO; -MULT-65 PO; +VITA2000 PO; -VITATAB25 PO
[2017-06-02] MEDS ORDERED: IOHEXOL 350 MG/ML 50 ML BTL (for RAD DIAG) OTHER ONE (08:27)
[2017-06-02 08:54] VITALS: BP 131/80; PULSE 81; RESP 20; TEMP 98; O2SAT 98
[2017-06-02] MEDS ORDERED: MILK175C7 PO (09:29)
[2017-06-02] MEDS ORDERED: MULTTAB67 PO (09:29)
[2017-06-02] MEDS ORDERED: LEVOFLOXACIN 500 MG PREMIX 100 ML - nephrostomy tube insertion or exchange IV SCH (10:15)
[2017-06-02] MEDS ORDERED: SODIUM CHLORIDE 0.9% 1000 ML IV SCH (10:15)
[2017-06-02] MEDS ORDERED: MIDAZOLAM HCL 2 MG/2 ML VIAL ONE (11:17)
[2017-06-02 12:16] VITALS: BP 146/80; PULSE 81; RESP 17; O2SAT 97
[2017-06-02 12:31] VITALS: BP 131/69; PULSE 70; RESP 18; TEMP 97.7; O2SAT 97
[2017-06-02 13:06] VITALS: BP 135/72; PULSE 71; RESP 18; O2SAT 98
[2017-06-02 13:31] VITALS: BP 143/78; PULSE 70; RESP 18; O2SAT 97
[2017-06-02 14:01] VITALS: BP 138/73; PULSE 70; RESP 16; O2SAT 97
--- NOTE | 2017-06-02 18:40 | RADRPT ---
EXAM DATE/TIME: 06/02/2017 12:30 [facility] COMPARISON: CT ABDOMEN & PELVIS W/O CONTRAST, May 25, 2017, 9:57. INDICATIONS : Ureteral stent placement requested. Patient has a unilateral left kidney with left distal ureteral st one. MEDICAL HISTORY : 1. stage 3 chronic kidney disease 2. Angina 3. CAD 4. HLD 5. Cardioyopathy 6. Arotic valve stenosis 7. Right renal carcinoma 8. BPH 9. NM SURGICAL HISTORY : 1. CABG x4 2. Colonoscopy 3. Polyp removed 4. EGD 5. Right nephrectomy ENCOUNTER: Subsequent ACUITY: 1 week PAIN SCORE: 0/10 FLUORO TIME: 8.5 minutes IMAGE SERIES: 8 SEDATION TIME: 30 minutes CONTRAST: 20 cc Omnipaque (iohexol) 350 MEDICATION(S): 1.) 2.5 mg midazolam (Versed) IV 2.) 150 mcg fentanyl (Sublimaze) IV Prophylactic antibiotics were administered with appropriate pre-procedure timing. DEVICE(S): 1.) 8 Colombian nephrostomy catheter 2.) 8 Colombian 8 x 24 cm Polaris catheter PROCEDURE : 1. Percutaneous antegrade pyelogram 2. Conversion of nephrostomy tube to nephroureteral stent 3. Conscious sedation with continuous EKG and oximetry monitoring The risks, benefits and alternatives to the procedure were explained and verbal and written consent w as obtained. The site was prepped in sterile fashion. Full sterile technique was used, including ca p, mask, sterile gloves and gown and a large sterile sheet. Hand hygiene and 2% chlorhexidine and/or betadine/alcohol prep was utilized per protocol for cutaneous antisepsis. The skin and subcutaneous tissues were infiltrated with local anesthetic solution. Percutaneous antegrade pyelogram was performed through an existing nephrostomy tube to delineate the urinary tract. There is a tortuous ureter. There is a small stone involving the distal ureter which m easures approximately 4-5 mm. Just distal or inferior to the stone is a strictured segment of ureter. The nephrostomy tube is draining clear urine. A guidewire was placed through the previous placed nephrostomy into the bladder. A peel-away sheath was passed over the wire positioned in the proximal ureter. An 8 Colombian 24 cm double-J stent was passed through the peel-away sheath and over the wire and appropriately positioned. A new nephrostomy tube was placed. A nephrostogram was pe rformed through the nephrostomy tube highlight in the appropriate position of the double-J stent and prostatectomy 2. The nephrostomy tube was sutured in place. Follow-up pyelogram demonstrates good position. Conscious sedation was performed with the prescribed dosages and duration as above in the presence of an independent trained radiology nurse to assist in the monitoring of the patient. EKG and oximetry remained stable throughout the procedure. The patient tolerated the procedure well and there were no complications. CONCLUSION: Uncomplicated stent as above. There is a distal 4-5 mm left ureteral stone with a strictured segment of distal ureter inferior to the stone. A double J stent was appropriately positioned. The patient wi ll cap the tube in 24-48 hours and will return on for nephrostomy tube removal. Stefan Davis Jr., MD on June 02, 2017 at 18:23 Board Certified Radiologist. This report was verified electronically.
== END 2017-06-02 14:30 | disposition home or self-care (01) ==
LOC: HROP 08:26 → HRIP 08:30 → HROP 14:30
PROVIDERS: ATTEND Physician Assistant
DX: N20.1 Calculus of ureter (principal); N40.0 Benign prostatic hyperplasia without lower urinary tract symptoms; N18.3 Chronic kidney disease, stage 3 (moderate); I25.10 Atherosclerotic heart disease of native coronary artery without angina pectoris; E78.5 Hyperlipidemia, unspecified; Z90.5 Acquired absence of kidney; Z85.528 Personal history of other malignant neoplasm of kidney; Z95.1 Presence of aortocoronary bypass graft; Z79.84 Long term (current) use of oral hypoglycemic drugs
CPT/HCPCS: 50435; 50693; 99152; 99153; C1729; C1769; C1887; C1894; C2617; J1956; J2250; J3010; J7030; Q9967

== ENCOUNTER 2017-06-05 06:43 | Day surgery (SDC) | payer MEDICARE ==
[~2017-06-05] VITALS: Ht 177.8 cm; Wt 95.5 kg
[~2017-06-05 06:43] MED LIST changes: +MILK175C7 PO; +MULTTAB67 PO
[2017-06-05] MEDS ORDERED: IOHEXOL 350 MG/ML 50 ML BTL (for RAD DIAG) OTHER ONE (06:44)
[2017-06-05 07:08] VITALS: BP 146/89; PULSE 81; RESP 20; TEMP 98; O2SAT 95
[2017-06-05] MEDS ORDERED: LEVOFLOXACIN 500 MG PREMIX 100 ML - nephrostomy tube insertion or exchange IV SCH (07:30)
[2017-06-05] MEDS ORDERED: CHLORHEXIDINE GLUCONATE 2 % 1 PACK (2 CLOTHS) TOPICAL SCH (07:30)
[2017-06-05] MEDS ORDERED: SODIUM CHLORIDE 0.9% 1000 ML IV SCH (07:30)
[2017-06-05 09:40] VITALS: BP 140/78; PULSE 75; RESP 18; TEMP 98; O2SAT 95
--- NOTE | 2017-06-05 09:40 | PD.RAD ---
Post Procedure Progress Note Pre Procedure Diagnosis: (1) Hydronephrosis (2) Nephrolithiasis Post Procedure Diagnosis: (1) Hydronephrosis (2) Nephrolithiasis Procedure Date: Jun 05, 2017 Supervising Radiologist: Stefan Davis JR Proceduralist/Assist: Muriel Durham, RT(R)(CV), Yves Perez RT(R) Anesthesia: Other Plan of Activity Patient to Unit: [facility]OPU Patient Condition: Good Additional Comments: Nephrostogram thru existing nephrostomy tube shows a patent left ureteral stent. No hydronephrosis. PCN removed under fluoroscopic control. See PACS Report for procedural detail/treatment Jr. Ryan,Stefan Flores MD Jun 05, 2017 09:39
--- NOTE | 2017-06-05 10:32 | RADRPT ---
EXAM DATE/TIME: 06/05/2017 08:37 [facility] COMPARISON: URETERAL STENT THRU EXIST NEPH, June 02, 2017, 12:30. NEPHROSTOMY, LEFT, May 27, 2017, 11:58. INDICATIONS : Patient presents with solitary left kidney with distal ureteral stone and distal ureteral stricture. Status post left ureteral stent placement. Patient has tolerated the left nephrostomy tube being capp ed. Nephrostomy tube removal planned. MEDICAL HISTORY : Stage 3 chronic kidney disease Angina CAD HLD Cardiomyopothy Arotic valve stenosis Right renal carcinoma BPH SD SURGICAL HISTORY : CABG x4 Colonoscopy Polyp removed EGD Right nephrectomy ENCOUNTER: Subsequent ACUITY: 1 week PAIN SCORE: 0/10 LOCATION: N/A FLUORO TIME: 0.5 minutes IMAGE SERIES: 2 CONTRAST: 10 cc Omnipaque (iohexol) 350 PROCEDURE : 1. Antegrade pyelogram. 2. Nephrostomy tube removal. The risks, benefits and alternatives to the procedure were explained and verbal and written consent w as obtained. The site was prepped in sterile fashion. Full sterile technique was used, including ca p, mask, sterile gloves and gown and a large sterile sheet. Hand hygiene and 2% chlorhexidine and/or betadine/alcohol prep was utilized per protocol for cutaneous antisepsis. With fluoroscopic guidance the existing nephrostomy catheter was injected. Contrast opacifies a nondi lated collecting system of the left kidney. Contrast freely flows down the left ureteral stent and in to the urinary bladder. Under fluoroscopic control the nephrostomy tube was removed without difficult y. The ureteral stent remains in good position. There were no complications and the patient was sent to post anesthesia recovery in stable condition. CONCLUSION: Uncomplicated nephrostomy tube removal as above. The patient has a patent ureteral st ent. Stefan Davis Jr., MD on June 05, 2017 at 10:14 Board Certified Radiologist. This report was verified electronically.
== END 2017-06-05 09:57 | disposition home or self-care (01) ==
LOC: HRIP 06:43 → HROP 06:43
PROVIDERS: ATTEND Urology
DX: Z46.82 Encounter for fitting and adjustment of non-vascular catheter (principal); N13.2 Hydronephrosis with renal and ureteral calculous obstruction; N13.5 Crossing vessel and stricture of ureter without hydronephrosis; C64.1 Malignant neoplasm of right kidney, except renal pelvis; I12.0 Hypertensive chronic kidney disease with stage 5 chronic kidney disease or end stage renal disease; N18.3 Chronic kidney disease, stage 3 (moderate); I25.10 Atherosclerotic heart disease of native coronary artery without angina pectoris; E78.5 Hyperlipidemia, unspecified; N40.0 Benign prostatic hyperplasia without lower urinary tract symptoms; Z95.1 Presence of aortocoronary bypass graft
CPT/HCPCS: 50389; 50431; Q9967

== ENCOUNTER → 2017-06-27 | Outpatient (CLI) | payer MEDICARE ==
--- NOTE | 2017-06-27 14:43 | EKG ---
Date Performed: 06/27/2017 Time Performed: 07:48:06 PTAGE: 77 years EKG: Sinus bradycardia. Possible inferior infarct - age undetermined QRS changes V3/V4 may be du e to LVH but cannot rule out anterior infarct Lateral T wave changes are nonspecific Low QRS voltages in precordial leads Abnormal ECG PREVIOUS TRACING : 05/21/2017 06.16 Since the prior tracing, there has been no significant crook DOCTOR: Audelia Solomon Interpretating Date/Time 06/27/2017 14:37:50
== END ==
LOC: HCAV 07:38
PROVIDERS: ATTEND Urology
DX: Z01.810 Encounter for preprocedural cardiovascular examination (principal); R94.31 Abnormal electrocardiogram [ECG] [EKG]
CPT/HCPCS: 93005